=== PATIENT | female | born 1940 | race Caucasian/White ===

== ENCOUNTER 2020-08-06 07:31 | Outpatient (REF) | payer MEDICARE, SELFPAY ==
--- NOTE | ~2020-08-06 | MM_ITS ---
EXAMINATION: MM DIAGNOSTIC DIGITAL BREAST TOMOSYNTHESIS, LEFT US DIAGNOSTIC ULTRASOUND BREAST, LEFT CLINICAL INFORMATION: [place] sized palpable nodule noted by patient outer left breast, does not feel today. History contralateral right breast cancer status post lumpectomy 2017. COMPARISON: Mammography: 01/31/2020, 11/23/2018, 09/27/2017, 07/23/2016 TECHNIQUE: Digital breast tomosynthesis is performed in both the craniocaudal and mediolateral oblique views along with computer-aided detection (CAD). Synthesized 2D images are generated from the tomosynthesis. Additional exaggerated left CC view is provided. Ultrasound left breast is targeted to the outer quadrant using grayscale imaging and color Doppler without and with harmonics. Patient is able to point to general vicinity of recently palpable concern, does not focally feel today. FINDINGS: The breasts are heterogeneously dense, which may obscure small masses (ACR BI-RADS breast composition Category c). Fibronodular parenchymal pattern is similar to prior exams. There is no developing density or interval mass or architectural abnormality. No abnormal calcifications. There is a dermal lesion again seen overlying the upper breast. Targeted left breast ultrasound shows no cystic or solid mass, architectural abnormality, or focal duct ectasia. No skin thickening or edema tracking in soft tissue planes. Results are discussed with the patient at time of visit. MM/MM tomosynthesis diagnostic LT IMPRESSION: 1. No mammographic evidence of malignancy. 2. Unremarkable targeted left breast ultrasound. 3. No imaging correlate for patient's recent palpable concern. ASSESSMENT: BI-RADS 1: Negative RECOMMENDATION: 1. Patient should be managed based on the clinical impression. If clinically indicated, further evaluation may be considered with surgical consult. Decision to proceed with biopsy should be based on clinical grounds and degree of clinical concern. 2. Otherwise, routine annual screening mammography. This patient's information was entered into a reminder system with a target due date for their next mammogram.
== END 2020-08-06 07:32 | disposition home or self-care (01) ==
LOC: HO.MAMMO 07:31
PROVIDERS: Visit Provider Nurse Practitioner Family
DX: N63.23 Unspecified lump in the left breast, lower outer quadrant (principal)
CPT/HCPCS: 76642; 77061; 77065

== ENCOUNTER 2021-02-11 09:00 | Outpatient (REF) | payer MEDICARE, SELFPAY ==
--- NOTE | ~2021-02-11 | XR_ITS ---
EXAMINATION: XR HAND WRIST, LEFT CLINICAL INFORMATION: Pain COMPARISON: None TECHNIQUE: 3 views of the left hand and wrist are imaged together in large [id number] images along with a navicular view of the left breast for a total of 4 views. FINDINGS: There is a transverse fracture mid waist carpal navicular without significant angulation or displacement. There are no other visible fractures demonstrated. No dislocation. The ulnar variance is neutral. There are degenerative changes lateral carpus greatest at the first carpometacarpal joint and also involving the triscaphe joint. There are prominent osteoarthritic changes involving the PIP and DIP joints as well. XR/XR hand wrist LT IMPRESSION: Transverse fracture mid waist carpal navicular.
== END 2021-02-11 09:01 | disposition home or self-care (01) ==
LOC: HO.HMGCX 09:00
PROVIDERS: Visit Provider Internal Medicine
DX: Z13.89 Encounter for screening for other disorder (principal)
CPT/HCPCS: 73110; 73130

== ENCOUNTER 2021-09-15 10:41 | Outpatient (REF) | payer MEDICARE, SELFPAY ==
--- NOTE | ~2021-09-15 | MM_ITS ---
EXAMINATION: MM SCREENING DIGITAL BREAST TOMOSYNTHESIS, BILATERAL CLINICAL INFORMATION: Right lumpectomy for breast cancer, 2017. Due for yearly. COMPARISON: Mammography: 08/06/2020, 01/31/2020, 11/23/2018, 09/27/2017 TECHNIQUE: Digital breast tomosynthesis is performed in both the craniocaudal and mediolateral oblique views along with computer-aided detection (CAD). Synthesized 2D images are generated from the tomosynthesis. Additional right MLO view is provided. FINDINGS: The breasts are heterogeneously dense, which may obscure small masses (ACR BI-RADS breast composition Category c). There is a fibronodular parenchymal pattern similar to prior exams. Scattered bilateral vascular and round and coarse and some dystrophic calcifications are again seen. There are postsurgical changes again noted on the right with minor scarring and surgical clips and mild reduced breast size. There is no interval mass or architectural abnormality or abnormal calcifications. The axilla are unremarkable. MM/MM tomosynthesis screening BI IMPRESSION: No mammographic evidence of malignancy. ASSESSMENT: BI-RADS 2: Benign RECOMMENDATION: Routine annual mammography screening. This patient's information was entered into a reminder system with a target due date for their next mammogram.
== END 2021-09-15 10:42 | disposition home or self-care (01) ==
LOC: HO.MAMMO 10:41
PROVIDERS: PCP Registered Nurse; Visit Provider Registered Nurse
DX: Z12.31 Encounter for screening mammogram for malignant neoplasm of breast (principal)
CPT/HCPCS: 77063; 77067

== ENCOUNTER 2023-03-10 11:38 | Outpatient (REF) | payer MEDICARE, SELFPAY ==
--- NOTE | ~2023-03-10 | XR_ITS ---
EXAMINATION: XR HIP, RIGHT CLINICAL INFORMATION: Right hip pain. COMPARISON: None available. TECHNIQUE: Two views of the right hip. FINDINGS: No acute fracture or dislocation. Mild right hip joint space narrowing with small marginal osteophytes. No concerning lytic or blastic osseous lesion. No evidence of avascular necrosis. Right pelvic surgical clips. Atherosclerotic calcifications. XR/XR hip RT min 2V IMPRESSION: Mild to moderate right hip osteoarthritis.
== END 2023-03-10 11:39 | disposition home or self-care (01) ==
LOC: HO.HOSX 11:38
PROVIDERS: Visit Provider Orthopaedic Surgery
DX: M25.551 Pain in right hip (principal); Z79.899 Other long term (current) drug therapy
CPT/HCPCS: 73502; 99212

== ENCOUNTER 2023-03-10 12:05 | Outpatient (AMB) | payer MEDICARE, SELFPAY ==
--- NOTE | 2023-03-10 12:24 | A.OFFVIS_ITS ---
Intake Vital Signs 03/10/23 12:25 Height 5 ft 2 in Weight 190 lb BMI 34.7 Intake Visit Reasons: [employer]- right hip pain Intake Note: Swetha 82 yr old female presents today with her daughter Nancy for a new patient visit to re-establish care with Dr. Kendrick. States she is having hip pain that comes and goes. States pain comes and goes for the last month. No injury. The patient also reports intermittent low back pain. She has had cortisone injections given into her low back by Dr. Jordan. She denies any weakness. 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 Physical Exam Vital Signs: BMI result Body Mass Index 34.7 Const Other: Well-nourished well-developed very friendly female awake alert and oriented x3 in no acute distress Extrem Other: Bilateral lower extremity examination shows good capillary refill, no skin lesions noted, normal sensation light touch Right hip examination shows full range of motion when compared to her left hip, mild tenderness over her bursa, mild discomfort with range of motion Results Reviewed Results Reviewed: X-rays of the patient's right hip show moderate diffuse joint space narrowing, no acute bony abnormalities Assessment & Plan Assessment & Plan (1) Right hip pain: Code(s): M25.551 - Pain in right hip Plan: Ms. May presents with right hip pain due to degenerative joint disease. I had a lengthy discussion with the patient regarding the treatment options. She w ishes to hold off on surgery if at all possible. I agree with this plan. I did give the patient prescriptions for tramadol and Flexeril. She states that she took this combination while at [facility] and gave her fairly good relief. She will continue with her home exercise program. She will follow up with me on an as-needed basis should her symptoms not plateau at an acceptable level. Feel free to call me at any time should questions regarding her orthopedic management arise. I spent 22 minutes in reviewing the patient's records and imaging studies, seeing the patient and documenting in the medical record. Orders: Orders XR hip RT min 2V Today M25.551 - Pain in right hip Medications: New tramadol 50 mg PO Q12H PRN 30 tabs 0RF pain cyclobenzaprine 5 mg PO Q12H PRN 30 tabs 0RF muscle spasm Coding Level of Care Code Est Pt Level 2 (60563) Diagnoses Right hip pain M25.551
[2023-03-10 12:25] VITALS: BMI 34.7
== END 2023-03-10 13:02 | disposition home or self-care (01) ==
PROVIDERS: PCP Internal Medicine; Visit Provider Orthopaedic Surgery
DX: M25.551 Pain in right hip (principal)
CPT/HCPCS: 99212

== ENCOUNTER 2023-04-15 08:27 | Outpatient (REF) | payer MEDICARE, SELFPAY ==
--- NOTE | ~2023-04-15 | MM_ITS ---
EXAMINATION: BONE DENSITOMETRY CLINICAL INDICATION: Postmenopausal. COMPARISON: Previous BD dated 07/31/2019 and baseline BD dated 12/05/2006. TECHNIQUE: Using a Flexenclosure DXA System (software version: 13.1) manufactured by [employer], dual-energy x-ray absorptiometry was performed of the lumbar spine and left hip. The images are of good technical quality. Summary results are attached. FINDINGS: LEFT FEMUR, NECK: Current: BMD 0.810 g/cm2, Z-score 0.4, T-score -1.6, osteopenia. Prior: BMD 0.882 g/cm2. Baseline: BMD 0.954 g/cm2. LEFT FEMUR, TOTAL: Current: BMD 0.831 g/cm2, Z-score 0.4, T-score -1.4, osteopenia, 8.5% decrease from previous, 16.5% decrease from baseline (<5% change is not significant). Prior: BMD 0.908 g/cm2. Baseline: BMD 0.995 g/cm2. AP SPINE L1-L4: Current: BMD 1.293 g/cm2, Z-score 2.4, T-score 0.9, normal, 5.8% decrease from previous, 3.0% increase from baseline (<5% change is not significant). Prior: BMD 1.372 g/cm2. Baseline: BMD 1.255 g/cm2. IDENTIFIED RISK FACTORS: Menopause, hysterectomy, height loss, bilateral oophorectomy. HISTORY OF FRACTURE: None listed. MEDICATIONS: Calcium, vitamin D. MM/XR DEXA axial skeleton IMPRESSION: 1. DIAGNOSIS: Osteopenia based on the lowest T-score value of -1.6 in the femoral neck applying World Health Organization criteria. 2. 10-YEAR FRACTURE RISK PREDICTION, FRAX: Major osteoporotic fracture (clinical spine, forearm, hip or shoulder) 13.6%. Hip fracture 3.7%. 3. Treatment Recommendations: NOF guidelines recommend consideration for treatment in postmenopausal women and men age 50 and older presenting with the following: -A hip or vertebral (clinical or morphometric) fracture. -T-score less than or equal to -2.5 at the femoral neck or spine after appropriate evaluation to exclude secondary causes. -Low bone mass at the hip or spine and a 10-year fracture probability by FRAX of greater than or equal to 3% for hip fracture or greater than or equal to 20% for major osteoporotic fracture based on the [place] adapted WHO algorithm. 4. Other Recommendations: All treatment decisions require clinical judgment and consideration of individual patient factors, including patient preferences, comorbidities, previous drug use, risk factors not captured in the FRAX model (e.g. frailty, falls, vitamin D deficiency, increased bone turnover, interval significant decline in bone density) and possible under or overestimation of fracture risk by FRAX. Additional medical evaluation for secondary cause of low bone mineral density may be appropriate. FUTURE SCAN RECOMMENDATION: People with diagnosed cases of osteoporosis or at high risk for fracture should have regular bone mineral density tests. For patients eligible for Medicare, routine testing is allowed once every 2 years. The testing frequency can be increased to one year for patients who have rapidly progressing disease, those who are receiving or discontinuing medical therapy to restore bone mass, or have additional risk factors.
--- NOTE | ~2023-04-15 | MM_ITS ---
EXAMINATION: MM SCREENING DIGITAL BREAST TOMOSYNTHESIS, BILATERAL CLINICAL INFORMATION: Screening. Asymptomatic. Patient has a history of right breast cancer surgery. COMPARISON: Mammography: This study is compared with prior exams dating back to 2019. TECHNIQUE: Digital breast tomosynthesis is performed in both the craniocaudal and mediolateral oblique views along with computer-aided detection (CAD). Synthesized 2D images are generated from the tomosynthesis. FINDINGS: There are scattered areas of fibroglandular density (ACR BI-RADS breast composition Category b). There are no significant masses, abnormal calcifications, or other abnormalities. There are postsurgical changes in the superior aspect of the right breast. There are scattered, bilateral, benign calcifications in each breast. MM/MM tomosynthesis screening BI IMPRESSION: No mammographic evidence of malignancy. ASSESSMENT: BI-RADS BI-RADS 2 - Benign Findings RECOMMENDATION: Routine annual mammography screening. 1 year F/U This examination should not preclude the clinical evaluation of a suspicious palpable abnormality. This patient's information was entered into a reminder system with a target due date for their next mammogram.
== END 2023-04-15 08:28 | disposition home or self-care (01) ==
LOC: HO.MAMMO 08:27
PROVIDERS: PCP Internal Medicine; Visit Provider Internal Medicine
DX: Z12.31 Encounter for screening mammogram for malignant neoplasm of breast (principal); Z13.820 Encounter for screening for osteoporosis; Z78.0 Asymptomatic menopausal state
CPT/HCPCS: 77063; 77067; 77080

== ENCOUNTER → 2023-04-15 09:15 | Outpatient (BNV) | payer MEDICARE, SELFPAY | PROVIDERS: PCP Internal Medicine; Visit Provider Radiology Diagnostic Radiology | DX: Z12.31 Encounter for screening mammogram for malignant neoplasm of breast (principal) | CPT/HCPCS: 77063; 77067 ==

== ENCOUNTER 2023-04-20 09:25 | Outpatient (AMB) | payer MEDICARE, SELFPAY ==
--- NOTE | 2023-04-20 09:39 | MHC.OFFVIS ---
Intake Intake Visit Reasons: Knee pain Intake Note: This is an 82 year old female who presents for right knee pain. She describes her pain as sharp in nature. She has tried Tylenol which gives only mild relief. She is not able to take anti-inflammatory medicines because she is on Eliquis. She has had cortisone injections in the past which gave her fairly good relief. She wishes to hold off on surgery for as long as possible. Allergies No Known Allergies Allergy (Verified 04/20/23 09:42) Medication List - Last Reconciled 04/20/23 by Kaitlynn Lyman RN apixaban (Eliquis) 5 mg PO BID atenolol 50 mg PO DAILY cholecalciferol (vitamin D3) 10 mcg PO DAILY cholecalciferol (vitamin D3) 10 mcg PO DAILY cyclobenzaprine 5 mg PO Q12H PRN flecainide 100 mg PO Q12H furosemide (Lasix) 80 mg PO BID multivitamin 1 tab PO DAILY pravastatin 40 mg PO DAILY tramadol 50 mg PO Q12H PRN vitamins A,C,Z-isre-vhkjpi 4,296 mcg-226 mg-90 mg (PreserVision AREDS) 1 cap PO BID PFSH Social History (Updated 03/10/23 @ 12:27 by DEEPTHI Stanton) Patient Tobacco Use Status: Never used Tobacco Current occupational status: 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 Physical Exam Const Other: Well-nourished well-developed very friendly female awake alert and oriented x3 in no acute distress Extrem Other: Bilateral lower extremity examination shows good capillary refill, no skin lesions noted, normal sensation light touch Right knee examination shows a minimal effusion, palpable crepitus with range of motion, pain with range of motion, range of motion from -3 degrees to 115 degrees, no instability Office Procedures Joint Injection/Drain Joint Injection/Drain Primary Site: right knee Prep: site was prepped using aseptic technique Injected: 40 mg of, Kenalog and 1% plain lidocaine Procedure: The patient tolerated the procedure well Coding 31382 - Large joint Procedure code (CPT) selection complete Results Reviewed Results Reviewed: 04/20/23 09:54 Lidocaine HCl 1 % [Xylocaine 1 %] 2 ml .ROUTE .STK-MED ONE Triamcinolone Acetonide [Kenalog-40] 40 mg .ROUTE .STK-MED ONE X-rays of the patient's right knee show joint space narrowing, subchondral sclerosis, no acute bony abnormalities Assessment & Plan Assessment & Plan (1) Arthritis of right knee: Code(s): M17.11 - Unilateral primary osteoarthritis, right knee Plan: Ms. May presents with right knee pain due to degenerative joint disease. I had a lengthy discussion with the patient regarding the treatment options. She wishes to hold off on surgery for as long as possible. I agree with this plan. The risks and benefits of a cortisone injection were discussed at length with the patient. Patient wished to proceed. She tolerated the right knee cortisone injection well. She will continue with her activity modifications. She will follow up with me on an as-needed basis should her symptoms not plateau at an unacceptable level over the next few months. Feel free to call me at any time should questions regarding her orthopedic management arise. I spent 22 minutes in reviewing the patient's records and imaging studies, seeing the patient and documenting in the medical record. Orders: Orders AMB Joint Injection/Aspiration Today M17.11 - Unilateral primary osteoarthritis, right knee Coding Level of Care Code Est Pt Level 2 (20715) Diagnoses Arthritis of right knee M17.11 CPT Codes Coding - 96375 Large joint: 82100 - Large joint ([id number])
== END 2023-04-20 10:11 | disposition home or self-care (01) ==
PROVIDERS: PCP Internal Medicine; Visit Provider Orthopaedic Surgery
DX: M17.11 Unilateral primary osteoarthritis, right knee (principal)
CPT/HCPCS: 20610; 99214

== ENCOUNTER → 2023-04-20 09:25 | Outpatient (BNVA) | payer MEDICARE, SELFPAY | PROVIDERS: PCP Internal Medicine; Visit Provider Orthopaedic Surgery | DX: M17.11 Unilateral primary osteoarthritis, right knee (principal) | CPT/HCPCS: 20610; 99212; J3301 ==

== ENCOUNTER 2023-06-25 16:45 | Inpatient (IN) | payer MEDICARE, SELFPAY ==
--- NOTE | 2023-06-25 16:58 | ED.ARRPALP ---
HPI - Arrhythmia/Palpitations General Chief Complaint: Arrhythmia/Palpitations Stated Complaint: nausea rapid afib Time Seen by Provider: 06/25/23 16:52 Source: patient and old records reviewed Mode of arrival: EMS Limitations: no limitations History of Present Illness HPI narrative: 82 yo female with PMH of CHF, afib on eliquis, HLD has been sick with URI symptoms, nausea, diarrhea that resolved 4 days ago - but sick for a week. This AM she felt very nauseated since 930am and HR was bounding she felt terrible and called EMS - HR in 170s rapid afib gave 20mg of IV diltiazem / 500 NS and symptoms resolved with HR down in 70s. She is on atenolol 50mg daily. She has never had afib like this before but states this virus has triggered her afib. MD complaint: rapid heart beat, heart racing and palpitations Onset (ago): day(s) (2) Duration: constant Severity: moderate Context: occurred during rest Arrhythmia history: atrial fibrillation Associated symptoms: nausea and anxiety Treatments prior to arrival: calcium channel duy (20mg diltiazem) Related Data Home Medications Medication Instructions Recorded Confirmed atenolol 50 mg tablet 50 mg PO DAILY 02/11/21 06/25/23 pravastatin 40 mg tablet 40 mg PO DAILY 02/11/21 06/25/23 apixaban 5 mg tablet (Eliquis) 5 mg PO BID 04/08/22 06/25/23 cholecalciferol (vitamin D3) 10 10 mcg PO DAILY 04/20/23 06/25/23 mcg (400 unit) capsule furosemide 80 mg tablet (Lasix) 80 mg PO BID 04/20/23 06/25/23 multivitamin 1 tab PO DAILY 04/20/23 06/25/23 vitamins A,C,M-wams-gsbdts 4,296 1 cap PO BID 04/20/23 06/25/23 mcg-226 mg-90 mg capsule (PreserVision AREDS) Previous Rx's Medication Instructions Recorded cyclobenzaprine 5 mg tablet 5 mg PO Q12H PRN muscle spasm #30 03/10/23 tabs tramadol 50 mg tablet 50 mg PO Q12H PRN pain #30 tabs 03/10/23 Allergies Allergy/AdvReac Type Severity Reaction Status Date / Time No Known Allergies Allergy Verified 04/20/23 09:42 Review of Systems Review of Systems: Constitutional : No Fever, No Chills ENT/Mouth : No sore throat, pos Rhinorrhea, No Swallowing Difficulty Eyes: No Eye Pain, No Swelling, No Redness Cardiovascular : No Chest Pain, no SOB, No Orthopnea, no Edema, pos palpitations Respiratory : No Cough, No Sputum, No Wheezing, positive dyspnea Gastrointestinal : pos Nausea, No Vomiting, No Diarrhea, No abdominal Pain, No Hematochezia, No Melena Genitourinary : No Dysuria, No Urinary Frequency, No Hematuria Musculoskeletal : No joint pain, No Myalgias Skin : No Skin Lesions, No rash Neuro : No Weakness, No Numbness, No Dizziness, No Headache Psych : No Anxiety/Panic, No Depression All other systems reviewed and are negative PMFSH Past Medical History Attestation statement: The following information was validated with the patient. Onset Date is defined in the Problem List Problems that require an onset date and time if occurred within 24 hrs of arrival to the ED Aortic Dissection and Rupture; Neurologic impairment; Cardiopulmonary Arrest; Endotracheal Intubation; Insertion or Replacement of Mechanical Circulatory Assist Device Medical History Tachycardia Afib Arthritis of right knee Social History Social History Alcohol intake: never Patient Tobacco Use Status: Never used Tobacco Smoked in Last 30 Days: No Use of substances other than those prescribed or required for medical reasons: No Advance Directives: No Advance Directives Information Provided: No Current occupational status: 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 Oriented X3. No acute distress. Eyes: Pupils equal, round and reactive to light. ENT: Pharynx normal. Neck: Normal inspection. Neck supple. CVS: irregular heart rate and rhythm 110s. Pulses normal. Respiratory: No respiratory distress. Breath sounds rales both bases. Abdomen: Soft and nontender. Skin: Skin warm and dry. Normal skin color. Normal skin turgor. Extremities:1+ pitting bilateral lower extremity edema. No calf ttp Neuro: Oriented X 3. No motor deficit. No sensory deficit. Course Course Course Narrative: given BNP and hx of CHF without priors will hold dilt and start on IV lopressor / IV lasix, planned admit Reevaluation(s) Reevaluation #1: per Juanjose - hold atenolol, 25mg PO metoprolol, dig load, diurese Reevaluation #2: troponin not over delta no chest pain - night dose of eliquis ordered Medications Administered Discontinued Medications Generic Name Dose Route Start Last Admin Trade Name Freq PRN Reason Stop Dose Admin Apixaban 5 mg 06/25/23 20:09 06/25/23 20:15 Apixaban 5 Mg Tablet PO 06/25/23 20:10 5 mg ONCE ONE Administration Digoxin 0.25 mg 06/25/23 20:03 06/25/23 20:10 Digoxin 0.5 Mg/2 Ml Ampul IVPUSH 06/25/23 20:04 0.25 mg ONCE ONE Administration Furosemide 20 mg 06/25/23 18:19 06/25/23 19:10 Furosemide 20 Mg/2 Ml Vial IVPUSH 06/25/23 18:20 20 mg ONCE ONE Administration Protocol Diltiazem HCl 125 mg/ Sodium 125 mls @ 0 mls/hr 06/25/23 17:15 06/25/23 17:45 Chloride IVCONT 2.5 mg/hr .Q0M VIVIEN 2.5 mls/hr Administration Protocol Per Protocol Metoprolol Tartrate 5 mg 06/25/23 18:40 06/25/23 19:06 Metoprolol Tartrate 5 Mg/5 Ml Vial IVPUSH 06/25/23 18:41 5 mg ONCE ONE Administration Metoprolol Tartrate 5 mg 06/25/23 19:26 06/25/23 19:44 Metoprolol Tartrate 5 Mg/5 Ml Vial IVPUSH 06/25/23 19:27 5 mg ONCE ONE Administration Medical Decision Making Medical Decision Making MDM Narrative: 82 yo female with PMH of CHF, afib on eliquis, HLD here with c/o rapid afib following viral illness with good response to EMS IV diltiazem at this time will need labs, lytes, TSH, she is only on atenolol at this time - possibly switch to metoprolol. EKG, CXR. She has no CP/SOB to suggest ACS or VTE but she is older and will need rule out of ACS. Dilt drip started does not appear in acute CHF - HR still in 110s Differential Diagnosis Differential Diagnoses: The differential diagnosis associated with the presentation includes afib post viral illness possible lyte abnormality no CP/SOB to sugggest VTE CHF Admission/Observation Consideration of admission/observation: Escalation of care including admission/observation considered admit for further workup and rate control/diuresis Consult Healthcare Provider Management of the patient was discussed with: Hospitalist (will admit) and Generation Engineer (cardiology reccs given poor response to lopressor) Lab Data MDM Lab Attestation statement: I reviewed the patient's lab results. 06/25/23 17:37 06/25/23 17:37 Labs: Lab Results 06/25/23 06/25/23 06/25/23 Range/Units 17:37 19:27 19:55 WBC 7.0 (4.8-10.8) X10*3/uL RBC 3.60 L (4.20-5.50) X10*6/uL Hgb 11.3 L (12.0-16.0) g/dl Hct 33.3 L (37.0-47.0) % MCV 92.5 (80.0-98.0) fL MCH 31.4 (27.0-33.0) pg MCHC 33.9 (31.0-35.0) g/dl RDW 12.6 (11.0-16.0) % Plt Count 289 (160-400) X10*3/uL MPV 9.8 (9.4-12.3) fL Immature Gran % (Auto) 0.9 H (0.0-0.4) % Neut % (Auto) 78.2 H (45-73) % Lymph % (Auto) 14.1 L (20-40) % [place] % (Auto) 6.7 (2-11) % Eos % (Auto) 0.0 (0-4) % Baso % (Auto) 0.1 (0-2) % Lymph # (Auto) 1.0 L (1.2-4.9) X10*3/uL [place] # (Auto) 0.5 (0.1-1.2) X10*3/uL Eos # (Auto) 0.0 (0.0-0.4) X10*3/uL Baso # (Auto) 0.0 (0.0-0.2) X10*3/uL Abs Immat Gran (auto) 0.06 H (0.00-0.03) X10*3/uL Absolute Neuts (auto) 5.5 (2.0-8.3) x10*3/uL Absolute Nucleated RBC 0.000 (0.0-0.012) X10*3/uL Nucleated RBC % (auto) 0.0 (0.0-0.2) /100WBC PT 18.9 H (11.1-13.3) SEC INR 1.6 H (0.9-1.1) Sodium 144 (135-145) mmol/L Potassium 4.9 (3.3-5.1) mmol/L Chloride 103 (96-108) mmol/L Carbon Dioxide 31 H (22-29) mmol/L Anion Gap 15 (12-20) BUN 21 H (9-16) mg/dL Creatinine 0.91 (0.5-1.4) mg/dL Estim Creat Clear Calc 48.5 Estimated GFR 59 Random Glucose 138 H (60-115) mg/dL Calcium 9.0 (8.4-10.2) mg/dL Magnesium 1.7 (1.6-2.6) mg/dL Total Bilirubin 0.6 (0.0-1.0) mg/dL Direct Bilirubin 0.2 (0.0-0.5) mg/dL AST 16 (5-31) U/L ALT 12 (0-31) U/L Alkaline Phosphatase 78 (39-117) U/L Troponin I High Sens 122.5 H* 140.2 H* (<3.5-17.0) ng/L B-Natriuretic Peptide 1455 H (<100) pg/mL Total Protein 5.7 L (6.5-8.0) g/dL Albumin 3.5 (3.5-5.0) g/dL TSH 0.84 (0.32-4.0) uIU/mL Urine Color Yellow Urine Appearance Clear Urine pH 7.5 (5.0-9.0) Ur Specific [place] 1.010 (1.005-1.025) Urine Protein Negative (Neg-Trace) mg/dL Urine Glucose (UA) Negative (Negative) mg/dL Urine Ketones Negative (Negative) mg/dL Urine Blood Negative (Negative) Urine Nitrite Negative (Negative) Ur Leukocyte Esterase Trace H (Negative) Urine RBC 0-2 (0-2) /HPF Urine WBC 6-10 H (0-5) /HPF Ur Squamous Epith Cells 0-2 (0-2) /HPF Urine Bacteria None Seen (None Seen) Hyaline Casts 0-2 (0-2) /LPF Influenza Type A (PCR) NEGATIVE (Negative) Influenza Type B (PCR) NEGATIVE (Negative) RSV RNA Qual (PCR) NEGATIVE (Negative) SARS-CoV-2 RNA (RT-PCR) POSITIVE A (Negative) Independent Interpretation I performed an independent interpretation of an: EKG and Plain X-Ray (cardiomegaly) Interpretation: Rate: 96 Rhythm: afib Leonardo: left Normal QRS complex. ST T wave : no DONNA, inverted t waves V4-V6 qTC: 469 prior studies: no prior The study has been interpreted contemporaneously by me. . Radiology Impression Discussion of test interpretation with radiology: I have reviewed the radiologist's reading. Independent Historian Clinical information obtained from an independent historian. History obtained from or confirmed by: EMS and Other (family) External Record Review External record reviewed: Office record Critical Care Time Critical Care Time Critical Care Time: Yes Total Critical Care Time: 60 Attestation: repeat IV medications for heart control - lopressor, digoxin, medical consult, admission I attest to this time spent taking care of the patient Discharge Plan Discharge Clinical Impression: Atrial fibrillation with rapid ventricular response, Elevated troponin, COVID-19 CHF (congestive heart failure) Qualifiers: Heart failure type: unspecified Heart failure chronicity: acute on chronic Qualified Code(s): I50.9 - Heart failure, unspecified Patient Disposition: Admitted As Inpatient
[2023-06-25 17:05] VITALS: BP 115/60; BP 127/90; PULSE 100; PULSE 90; RESP 15; TEMP 36.6; O2SAT 97; BMI 34.7
--- NOTE | 2023-06-25 17:56 | PC.NURSE ---
Patient started on 2.5mg of diltiazem per MD verbal order. Patient generally well appearing at this time, alert and oriented, calm and cooperative with staff.
[2023-06-25 18:15] LABS: Alanine Aminotransferase 12 U/L (0-31); Albumin Level 3.5 g/dL (3.5-5.0); Alkaline Phosphatase 78 U/L (39-117); Anion Gap 15 (12-20); Aspartate Amino Transferase 16 U/L (5-31); Bilirubin Direct 0.2 mg/dL (0.0-0.5); Bilirubin Total 0.6 mg/dL (0.0-1.0); Blood Urea Nitrogen 21 mg/dL (9-16); Carbon Dioxide 31 mmol/L (22-29); Chloride 103 mmol/L (96-108); Creatinine Clr Calc Pharmacy 48.5; Estimated Glomerular Filt Rate 59; Glucose Random 138 mg/dL (60-115); Magnesium 1.7 mg/dL (1.6-2.6); Potassium 4.9 mmol/L (3.3-5.1); Sodium 144 mmol/L (135-145); Total Protein 5.7 g/dL (6.5-8.0)
[2023-06-25 18:29] LABS: TSH reflex Free T4 0.84 uIU/mL (0.32-4.0)
[2023-06-25 19:10] VITALS: BP 115/59; PULSE 127; RESP 22; O2SAT 98
[2023-06-25 20:00] VITALS: BP 106/52; PULSE 120; RESP 14; O2SAT 98
--- NOTE | 2023-06-25 20:29 | PM.IMHP ---
History of Present Illness Date of Service: 06/25/23 Chief Complaint: Palpitations This is a 82-year-old female with pertinent history of congestive heart failure, unspecified EF, atrial fibrillation on Eliquis, mixed hyperlipidemia who presents to the emergency department for evaluation of palpitations. Patient states she has been feeling weak for the last 10-14 days. She had runny nose, watering of eyes and felt like she had over the last 5-7 days, patient states he has been having palpitations. Also has associated nausea. No fever, chills, cough, chest discomfort, overt dyspnea, abdominal pain, changes in urinary or bowel habits. In the emergency department, patient was found to be in AFib with RVR. Cardiology was consulted who requested admission. Imaging with mild cardiomegaly and BNP found to be elevated. Review of Systems Constitutional: Constitutional: Reports fatigue, Reports lethargy and Reports malaise Cardiovascular: Cardiovascular: Reports rapid heart rate, Reports leg edema and Reports dyspnea Respiratory: Respiratory: Reports dyspnea Gastrointestinal: Gastrointestinal: Reports no additional gastrointestinal complaints Genitourinary: Genitourinary: Reports no additional female genitourinary complaints Endocrine: Endocrine: Reports fatigue [facility] Medical History CHF (congestive heart failure) Atrial fibrillation with rapid ventricular response Tachycardia Afib Arthritis of right knee Pertinent family history: No family history of early CAD Social History Alcohol intake: never Patient Tobacco Use Status: Never used Tobacco Smoked in Last 30 Days: No Use of substances other than those prescribed or required for medical reasons: No Advance Directives: No Advance Directives Information Provided: No Current occupational status: retired 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 [employer] Meds Allergies Allergy/AdvReac Type Severity Reaction Status Date / Time No Known Allergies Allergy Verified 04/20/23 09:42 Active Medications: Current Medications Metoprolol Tartrate (Metoprolol Tartrate 25 Mg Tablet) 25 mg PO BID [facility]; Protocol Home Medications Medication Instructions Recorded Confirmed Last Taken Type atenolol 50 mg tablet 50 mg PO DAILY 02/11/21 06/25/23 06/25/23 10:00 History pravastatin 40 mg tablet 40 mg PO DAILY 02/11/21 06/25/23 06/25/23 10:00 History apixaban 5 mg tablet (Eliquis) 5 mg PO BID 04/08/22 06/25/23 06/25/23 10:00 History cholecalciferol (vitamin D3) 10 10 mcg PO DAILY 04/20/23 06/25/23 06/25/23 10:00 History mcg (400 unit) capsule furosemide 80 mg tablet (Lasix) 80 mg PO BID 04/20/23 06/25/23 06/25/23 10:00 History multivitamin 1 tab PO DAILY 04/20/23 06/25/23 06/25/23 10:00 History vitamins A,C,K-yksj-nlmjjx 4,296 1 cap PO BID 04/20/23 06/25/23 06/25/23 10:00 History mcg-226 mg-90 mg capsule (PreserVision AREDS) Physical Exam Vital Signs and Narrative: Vital Signs: Last Vital Signs Temp 97.9 F 06/25/23 17:05 Pulse 120 H 06/25/23 20:00 Resp 14 06/25/23 20:00 BP 106/52 L 06/25/23 20:00 Pulse Ox 98 06/25/23 20:00 O2 Del Method Room Air 06/25/23 20:00 BMI result Body Mass Index 34.7 Middle-aged female lying in bed in no distress Neck supple, no JVD Irregularly irregular, S1-S2 heard Bilateral crackles at bases Abdomen soft nontender, no guarding, no rigidity Patient is awake, alert and oriented to self, place, time and person ; no focal motor deficit Psych: Normal mood Pedal edema +1 Results Labs 06/25/23 17:37 06/25/23 17:37 Labs: Laboratory Results - last 24 hr 06/25/23 06/25/23 17:37 19:55 MCV 92.5 MCH 31.4 MCHC 33.9 RDW 12.6 Plt Count 289 MPV 9.8 Immature Gran % (Auto) 0.9 H Neut % (Auto) 78.2 H Lymph % (Auto) 14.1 L [place] % (Auto) 6.7 Eos % (Auto) 0.0 Baso % (Auto) 0.1 Lymph # (Auto) 1.0 L [place] # (Auto) 0.5 Eos # (Auto) 0.0 Baso # (Auto) 0.0 Abs Immat Gran (auto) 0.06 H Absolute Neuts (auto) 5.5 Absolute Nucleated RBC 0.000 Nucleated RBC % (auto) 0.0 PT 18.9 H INR 1.6 H Anion Gap 15 Estim Creat Clear Calc 48.5 Estimated GFR 59 Random Glucose 138 H Calcium 9.0 Magnesium 1.7 Total Bilirubin 0.6 Direct Bilirubin 0.2 AST 16 ALT 12 Alkaline Phosphatase 78 B-Natriuretic Peptide 1455 H Total Protein 5.7 L Albumin 3.5 TSH 0.84 Urine Color Yellow Urine Appearance Clear Urine pH 7.5 Ur Specific [place] 1.010 Urine Protein Negative Urine Glucose (UA) Negative Urine Ketones Negative Urine Blood Negative Urine Nitrite Negative Ur Leukocyte Esterase Trace H Urine RBC 0-2 Urine WBC 6-10 H Ur Squamous Epith Cells 0-2 Urine Bacteria None Seen Hyaline Casts 0-2 Influenza Type A (PCR) NEGATIVE Influenza Type B (PCR) NEGATIVE RSV RNA Qual (PCR) NEGATIVE SARS-CoV-2 RNA (RT-PCR) POSITIVE A Imaging Radiologist's Impressions: Impressions Chest X-Ray 06/25/23 17:53 IMPRESSION: Mild cardiomegaly. No acute intrathoracic disease. Assessment and Plan (1) Atrial fibrillation with rapid ventricular response: Status: Acute (2) CHF (congestive heart failure): Qualifiers: Heart failure chronicity: acute on chronic Heart failure type: unspecified Qualified Code(s): I50.9 - Heart failure, unspecified Status: Acute Plan This is a 82-year-old female with pertinent history of congestive heart failure, unspecified EF, atrial fibrillation on Eliquis, mixed hyperlipidemia who presents to the emergency department for evaluation of palpitations. #. AFib with RVR in the setting of COVID-19 infection: Will admit patient with cardiac monitoring. Initially patient was placed on diltiazem drip. Cardiology was consulted who requested IV digoxin and initiating metoprolol 25 mg b.i.d.. Appreciate Cardiology assistance. Obtaining echocardiogram. TSH pending. Patient is not hypoxemic, defer Decadron. Continue Eliquis #. Acute mild decompensation of congestive heart failure, unspecified EF: Initiating IV diuresis. On beta-duy. Echo as above. Strict I's and O's. Low-salt diet. #. Mixed hyperlipidemia: On statin #. Elevated troponin, likely type 2 in the setting of increased demand. Trend DVT Prophylaxis: Eliisabelaaudie Full code Admit as inpatient and will require two night minimum hospital stay for close monitoring of heart rate, volume status (as above), which is not possible in a lesser acute setting. Specialist consult pending Quality Stroke Does the patient have a stroke diagnosis?: No VTE Prior VTE?: No VTE Risk Level:: Medical - moderate - high VTE Device Contraindication: Treatment Not Indicated VTE Drug Contraindication: N/A - Med Ordered
--- NOTE | 2023-06-25 21:38 | PC.NURSE ---
Pt has been able to stand and pivot with one assist to commode.
[2023-06-26 02:04] VITALS: BP 144/69; PULSE 102; RESP 15; TEMP 36.6; O2SAT 100
[2023-06-26 06:26] VITALS: BP 115/63; PULSE 107; RESP 16; TEMP 36.8; O2SAT 98
[2023-06-26 06:47] LABS: Anion Gap 14 (12-20); Blood Urea Nitrogen 20 mg/dL (9-16); Calcium 9.1 mg/dL (8.4-10.2); Carbon Dioxide 31 mmol/L (22-29); Chloride 102 mmol/L (96-108); Creatinine Clr Calc Pharmacy 50.2; Estimated Glomerular Filt Rate > 60; Glucose Random 102 mg/dL (60-115); Potassium 3.9 mmol/L (3.3-5.1); Sodium 143 mmol/L (135-145)
[2023-06-26 07:24] VITALS: BP 110/58; PULSE 90; RESP 12; TEMP 36.7; O2SAT 99
--- NOTE | 2023-06-26 07:33 | PC.NURSE ---
this RN resumed care of pt at this time. a&ox4, vss and up to date. afib on the vehicle monitor technician - 90s-100s bpm. pt denies chest pain/palpitations/SCHAEFER or any other sx. no sob/wob noted. pt able to speak in full/clear sentences w/o difficulty. fine crackles noted throughout. 3+ nonpitting edema noted to lower extremities bilaterally. pt concerned about home medications and taking scheduled pravastatin in the morning - pt states she usually takes the medication at night - will call pharmacy in regards to seeing if timing can be changed to make pt more comfortable. pt also concerned why entresto was not put in med rec - will notify pharmacy of this as well and provide information to pt when able. pt resting comfortably in no apparent distress. respirations even and unlabored. call moore placed within reach.
--- NOTE | 2023-06-26 07:45 | PC.NURSE ---
this RN spoke w/ pharmacy in regard to medication - pharmacy states they will come down to ED to complete full medication reconciliation. will notify pt at this time.
--- NOTE | 2023-06-26 08:03 | HO.PM.IMPN ---
Subjective Subjective Date of Service: 06/26/23 Interval History: f/u on AF with RVR, NSTEMI, CHF and covid Overall feels better Physical Exam Vital Signs: Vital Signs: Last Vital Signs Temp 98.0 F 06/26/23 07:24 Pulse 90 06/26/23 07:24 Resp 12 06/26/23 07:24 BP 110/58 L 06/26/23 07:24 Pulse Ox 99 06/26/23 07:24 O2 Del Method Room Air 06/26/23 07:24 BMI result Body Mass Index 34.7 General: AO X 3, no acute distress Resp: CTA bilateral CVS: S1,S2, iregular iregular GI: +BS, NT, no distention Skin: No rash Neuro: motor grossly intact Psych: appropriate affect Const: Other: General: AO X 3, no acute distress Resp: CTA bilateral CVS: S1,S2, iregular GI: +BS, NT, no distention Skin: No rash Neuro: motor grossly intact Psych: appropriate affect Objective Data Active Medications Acetaminophen (Acetaminophen 325 Mg Tablet) 650 mg PO Q6H PRN PRN Reason: Pain, Mild (Pain Scale 1-3) Apixaban (Apixaban 5 Mg Tablet) 5 mg PO BID VIVIEN Cyclobenzaprine HCl (Cyclobenzaprine Hcl 5 Mg Tablet) 5 mg PO Q12H PRN PRN Reason: muscle spasm Furosemide (Furosemide 100 Mg/10 Ml Vial) 60 mg IVPUSH BID@0900,1800 [facility]; Protocol Melatonin (Melatonin 3 Mg Tablet) 6 mg PO BEDTIME PRN PRN Reason: Insomnia Metoprolol Tartrate (Metoprolol Tartrate 25 Mg Tablet) 25 mg PO BID [facility]; Protocol Last Admin: 06/25/23 21:57 Dose: 25 mg Documented By: TRIP Multivitamins/Vitamin C (Multivitamin Tablet) 1 tab PO DAILY [facility] Ondansetron HCl (Ondansetron Hcl 4 Mg/2 Ml Vial) 4 mg IVPUSH Q8H PRN PRN Reason: Nausea and Vomiting Pravastatin Sodium (Pravastatin Sodium 40 Mg Tablet) 40 mg PO BEDTIME [facility] Sodium Chloride (0.9 % Sodium Chloride Flush 3 Ml Syringe) 3 ml IVFLUSH QSHIFT [facility] Last Admin: 06/26/23 07:37 Dose: 3 ml Documented By: JRODON Tramadol HCl (Tramadol Hcl 50 Mg Tablet) 50 mg PO Q12H PRN PRN Reason: Pain, Moderate(Pain Scale 4-6) Vitamin D (Cholecalciferol (Vitamin D3) 10 Mcg Tablet) 10 mcg PO DAILY VIVIEN Labs 06/26/23 05:47 06/26/23 05:47 Labs: Laboratory Results - last 24 hr 06/25/23 06/25/23 06/25/23 17:37 19:55 21:14 MCV 92.5 MCH 31.4 MCHC 33.9 RDW 12.6 Plt Count 289 MPV 9.8 Immature Gran % (Auto) 0.9 H Neut % (Auto) 78.2 H Lymph % (Auto) 14.1 L [place] % (Auto) 6.7 Eos % (Auto) 0.0 Baso % (Auto) 0.1 Lymph # (Auto) 1.0 L [place] # (Auto) 0.5 Eos # (Auto) 0.0 Baso # (Auto) 0.0 Abs Immat Gran (auto) 0.06 H Absolute Neuts (auto) 5.5 Absolute Nucleated RBC 0.000 Nucleated RBC % (auto) 0.0 PT 18.9 H INR 1.6 H Anion Gap 15 Estim Creat Clear Calc 48.5 Estimated GFR 59 Random Glucose 138 H Calcium 9.0 Magnesium 1.7 Total Bilirubin 0.6 Direct Bilirubin 0.2 AST 16 ALT 12 Alkaline Phosphatase 78 B-Natriuretic Peptide 1455 H Total Protein 5.7 L Albumin 3.5 TSH 0.84 0.71 Urine Color Yellow Urine Appearance Clear Urine pH 7.5 Ur Specific [place] 1.010 Urine Protein Negative Urine Glucose (UA) Negative Urine Ketones Negative Urine Blood Negative Urine Nitrite Negative Ur Leukocyte Esterase Trace H Urine RBC 0-2 Urine WBC 6-10 H Ur Squamous Epith Cells 0-2 Urine Bacteria None Seen Hyaline Casts 0-2 Influenza Type A (PCR) NEGATIVE Influenza Type B (PCR) NEGATIVE RSV RNA Qual (PCR) NEGATIVE SARS-CoV-2 RNA (RT-PCR) POSITIVE A 06/26/23 05:47 MCV 93.4 MCH 31.1 MCHC 33.3 RDW 12.7 Plt Count 294 MPV 10.0 Immature Gran % (Auto) 0.4 Neut % (Auto) 68.1 Lymph % (Auto) 22.9 [place] % (Auto) 8.3 Eos % (Auto) 0.0 Baso % (Auto) 0.3 Lymph # (Auto) 1.7 [place] # (Auto) 0.6 Eos # (Auto) 0.0 Baso # (Auto) 0.0 Abs Immat Gran (auto) 0.03 Absolute Neuts (auto) 5.2 Absolute Nucleated RBC 0.000 Nucleated RBC % (auto) 0.0 PT INR Anion Gap 14 Estim Creat Clear Calc 50.2 Estimated GFR > 60 Random Glucose 102 Calcium 9.1 Magnesium Total Bilirubin Direct Bilirubin AST ALT Alkaline Phosphatase B-Natriuretic Peptide Total Protein Albumin TSH Urine Color Urine Appearance Urine pH Ur Specific [place] Urine Protein Urine Glucose (UA) Urine Ketones Urine Blood Urine Nitrite Ur Leukocyte Esterase Urine RBC Urine WBC Ur Squamous Epith Cells Urine Bacteria Hyaline Casts Influenza Type A (PCR) Influenza Type B (PCR) RSV RNA Qual (PCR) SARS-CoV-2 RNA (RT-PCR) Assessment and Plan (1) Atrial fibrillation with rapid ventricular response: Status: Acute (2) CHF (congestive heart failure): Status: Acute (3) COVID-19: Status: Acute (4) Elevated troponin: Status: Acute Plan 82/F with unspecified CHF, AF on eliquis, HLD presented with palpitation and found to have covid, AF with RVR and NSTEMI and acute CHF Permanent AFib with RVR likely from covid, given iv metoprolol and iv dig in ed, rate is better -continue metoprolol 25 bid (atenolol at home) -eliquis for stroke prevention -no change per cardio Acute on chronic HFrEF, exacerbated by AF w/ RVR -continue iV Lasix to PO lasix per card recommendation -continue Entresto -echo -track i/o, low salt diet. Type 2 NSTEMI--likely from AF w/ RVR, continue BB, statin and eliquis so no ASA. Trend troponin I Covid-19, assymptomatic,, no indication for steroid or antiviral meds, covid isolation HLD--statin DVT Prophylaxis: Eliquis Full code need for inpt: mnaagement of acute heart fialure, AF w/ RVE and acute HF being ttreated with IV diuretics Quality Stroke Does the patient have a stroke diagnosis?: No VTE Prior VTE?: No VTE Risk Level:: Medical - moderate - high VTE Device Contraindication: Treatment Not Indicated VTE Drug Contraindication: N/A - Med Ordered
--- NOTE | 2023-06-26 08:13 | PHA.MEDREC ---
Pharmacy Consult ? Medication Reconciliation Pharmacy has completed the medication reconciliation. spoke with patient to confirm medications.
--- NOTE | 2023-06-26 08:15 | PC.NURSE ---
pt medicated per provider order. pt eating breakfast at this time.
--- NOTE | 2023-06-26 09:41 | PC.NURSE ---
admitting provider bedside assessing pt at this time. medication administered per provider order. per admitting provider order - 0900 lasix held/discontinued d/t previous lasix administration this morning.
--- NOTE | 2023-06-26 10:47 | PC.NURSE ---
this RN attempted to call pt's daughter (williams) for a status update on pt but was unsuccessful. voicemail left for pt's family member at this time.
--- NOTE | 2023-06-26 10:51 | PC.NURSE ---
this RN received phone call back from pt's primary contact - williams. status update given at this time.
[2023-06-26 11:11] VITALS: BP 102/74; PULSE 100; RESP 14; TEMP 36.7; O2SAT 100
--- NOTE | 2023-06-26 11:51 | PC.NURSE ---
pt c/o nausea - prn zofran administered per provider order. otherwise pt resting in no apparent distress. no sob/wob noted. respirations remain even and unlabored. call moore placed within reach.
--- NOTE | 2023-06-26 11:59 | PM.CNCAR ---
History of Present Illness History of Present Illness Date of Service: 06/26/23 Requesting physician: Evaristo Leon Chief complaint: Atrial fibrillation Narrative: [age] year female with COVID-19 infection ongoing for 2 weeks with GI complaints including nausea now along with some cramping who presented for nausea and was noticed to be in atrial fibrillation with rapid ventricular response. Chest x-ray also raise some concern for mild congestive heart failure. She was denying any shortness of breath. She is still denying any symptoms other than mild nausea. Heart rates are well controlled in atrial fibrillation. She is on atenolol 50 mg at home along with Entresto and apixaban. 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 Meds Allergies Allergy/AdvReac Type Severity Reaction Status Date / Time No Known Allergies Allergy Verified 04/20/23 09:42 Active Medications: Current Medications Acetaminophen (Acetaminophen 325 Mg Tablet) 650 mg PO Q6H PRN PRN Reason: Pain, Mild (Pain Scale 1-3) Apixaban (Apixaban 5 Mg Tablet) 5 mg PO BID [facility] Last Admin: 06/26/23 08:12 Dose: 5 mg Furosemide (Furosemide 100 Mg/10 Ml Vial) 40 mg IVPUSH BID@0900,1800 [facility]; Protocol Last Admin: 06/26/23 09:43 Dose: Not Given Melatonin (Melatonin 3 Mg Tablet) 6 mg PO BEDTIME PRN PRN Reason: Insomnia Metoprolol Tartrate (Metoprolol Tartrate 25 Mg Tablet) 25 mg PO BID [facility]; Protocol Last Admin: 06/26/23 08:12 Dose: 25 mg Multivitamins/Vitamin C (Multivitamin Tablet) 1 tab PO DAILY [facility] Last Admin: 06/26/23 08:12 Dose: 1 tab Ondansetron HCl (Ondansetron Hcl 4 Mg/2 Ml Vial) 4 mg IVPUSH Q8H PRN PRN Reason: Nausea and Vomiting Last Admin: 06/26/23 11:49 Dose: 4 mg Pravastatin Sodium (Pravastatin Sodium 40 Mg Tablet) 40 mg PO BEDTIME [facility] Sacubitril/Valsartan (Sacubitril/Valsartan 49/51 1 Tab Tablet) 1 tab PO BID [facility]; Protocol Last Admin: 06/26/23 09:43 Dose: 1 tab Sodium Chloride (0.9 % Sodium Chloride Flush 3 Ml Syringe) 3 ml IVFLUSH QSHIFT [facility] Last Admin: 06/26/23 07:37 Dose: 3 ml Vitamin D (Cholecalciferol (Vitamin D3) 10 Mcg Tablet) 10 mcg PO DAILY [facility] Last Admin: 06/26/23 08:12 Dose: 10 mcg Home Medications Medication Instructions Recorded Confirmed Last Taken Type atenolol 50 mg tablet 50 mg PO DAILY 02/11/21 06/25/23 06/25/23 10:00 History pravastatin 40 mg tablet 40 mg PO BEDTIME 02/11/21 06/26/23 06/25/23 10:00 History apixaban 5 mg tablet (Eliquis) 5 mg PO BID 04/08/22 06/25/23 06/25/23 10:00 History furosemide 20 mg tablet 40 mg PO BID 06/26/23 06/26/23 Unknown History sacubitril 49 mg-valsartan 51 mg 1 tab PO BID 06/26/23 06/26/23 Unknown History tablet (Entresto) Physical Exam Vital Signs: Vital Signs: Last Vital Signs Temp 98.1 F 06/26/23 11:11 Pulse 100 06/26/23 11:11 Resp 14 06/26/23 11:11 BP 102/74 06/26/23 11:11 Pulse Ox 100 06/26/23 11:11 O2 Del Method Room Air 06/26/23 11:11 BMI result Body Mass Index 34.7 GENERAL APPEARANCE: in no acute distress, pleasant. NECK: no carotid bruit, no jugular venous distention. SKIN: no suspicious lesions, warm and dry. HEART: no murmurs, irregular rate and rhythm. LUNGS: clear to auscultation bilaterally. ABDOMEN: soft, nontender. EXTREMITIES: no edema. PERIPHERAL PULSES: equal. NEUROLOGIC: No gross deficits, AAO X 3 Objective Labs and Meds 06/26/23 05:47 06/26/23 05:47 Lab results: Laboratory Results - last 24 hr 06/25/23 06/25/23 06/25/23 17:37 19:27 19:55 WBC 7.0 RBC 3.60 L Hgb 11.3 L Hct 33.3 L MCV 92.5 MCH 31.4 MCHC 33.9 RDW 12.6 Plt Count 289 MPV 9.8 Immature Gran % (Auto) 0.9 H Neut % (Auto) 78.2 H Lymph % (Auto) 14.1 L Dickson % (Auto) 6.7 Eos % (Auto) 0.0 Baso % (Auto) 0.1 Lymph # (Auto) 1.0 L Dickson # (Auto) 0.5 Eos # (Auto) 0.0 Baso # (Auto) 0.0 Abs Immat Gran (auto) 0.06 H Absolute Neuts (auto) 5.5 Absolute Nucleated RBC 0.000 Nucleated RBC % (auto) 0.0 PT 18.9 H INR 1.6 H Sodium 144 Potassium 4.9 Chloride 103 Carbon Dioxide 31 H Anion Gap 15 BUN 21 H Creatinine 0.91 Estim Creat Clear Calc 48.5 Estimated GFR 59 Random Glucose 138 H Calcium 9.0 Magnesium 1.7 Total Bilirubin 0.6 Direct Bilirubin 0.2 AST 16 ALT 12 Alkaline Phosphatase 78 Troponin I High Sens 122.5 H* 140.2 H* B-Natriuretic Peptide 1455 H Total Protein 5.7 L Albumin 3.5 TSH 0.84 Urine Color Yellow Urine Appearance Clear Urine pH 7.5 Ur Specific [place] 1.010 Urine Protein Negative Urine Glucose (UA) Negative Urine Ketones Negative Urine Blood Negative Urine Nitrite Negative Ur Leukocyte Esterase Trace H Urine RBC 0-2 Urine WBC 6-10 H Ur Squamous Epith Cells 0-2 Urine Bacteria None Seen Hyaline Casts 0-2 Influenza Type A (PCR) NEGATIVE Influenza Type B (PCR) NEGATIVE RSV RNA Qual (PCR) NEGATIVE SARS-CoV-2 RNA (RT-PCR) POSITIVE A 06/25/23 06/26/23 21:14 05:47 WBC 7.6 RBC 3.76 L Hgb 11.7 L Hct 35.1 L MCV 93.4 MCH 31.1 MCHC 33.3 RDW 12.7 Plt Count 294 MPV 10.0 Immature Gran % (Auto) 0.4 Neut % (Auto) 68.1 Lymph % (Auto) 22.9 Dickson % (Auto) 8.3 Eos % (Auto) 0.0 Baso % (Auto) 0.3 Lymph # (Auto) 1.7 Dickson # (Auto) 0.6 Eos # (Auto) 0.0 Baso # (Auto) 0.0 Abs Immat Gran (auto) 0.03 Absolute Neuts (auto) 5.2 Absolute Nucleated RBC 0.000 Nucleated RBC % (auto) 0.0 PT INR Sodium 143 Potassium 3.9 D Chloride 102 Carbon Dioxide 31 H Anion Gap 14 BUN 20 H Creatinine 0.88 Estim Creat Clear Calc 50.2 Estimated GFR > 60 Random Glucose 102 Calcium 9.1 Magnesium Total Bilirubin Direct Bilirubin AST ALT Alkaline Phosphatase Troponin I High Sens 142.1 H* B-Natriuretic Peptide Total Protein Albumin TSH 0.71 Urine Color Urine Appearance Urine pH Ur Specific [place] Urine Protein Urine Glucose (UA) Urine Ketones Urine Blood Urine Nitrite Ur Leukocyte Esterase Urine RBC Urine WBC Ur Squamous Epith Cells Urine Bacteria Hyaline Casts Influenza Type A (PCR) Influenza Type B (PCR) RSV RNA Qual (PCR) SARS-CoV-2 RNA (RT-PCR) Imaging Radiologist's impression: Impressions Chest X-Ray 06/25/23 17:53 IMPRESSION: Mild cardiomegaly. No acute intrathoracic disease. Assessment and Plan (1) Atrial fibrillation with rapid ventricular response: Status: Acute (2) COVID-19: Status: Acute Plan [age] year female presenting for nausea and AFib with RVR in the setting of COVID-19. She has elevated BNP level. Chest x-ray has shown mild cardiomegaly. Check echocardiogram. Continue metoprolol 25 mg twice a day. She was loaded with digoxin and we can hold off on further digoxin currently. She is on Eliquis for anticoagulation. Does not appear to be significantly volume overloaded although BNP levels were quite high. I would favor just changing her to 40 mg p.o. Lasix daily. Based on echocardiography we can adjust her medications further. Thank you for allowing me to participate in the care of your patient. Please feel free to contact me if you have any questions. Procedures Date of Service Date of Service: 06/26/23
--- NOTE | 2023-06-26 12:24 | MHC.CM.PN ---
IMM 06/26. Pt self-care, lives at home alone, uses a cane. Pts daughter or son to transport her home at D/C. Pts daughter is HCP, copy requested. PCP: Dr. Seth Khan at [facility]
[2023-06-26 13:48] VITALS: BP 113/63; PULSE 118; RESP 16; TEMP 36.8; O2SAT 96
--- NOTE | 2023-06-26 13:50 | PC.NURSE ---
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 pt verbalizing nausea subsided at this time. denies any pain. pt resting comfortably w/ family bedside at this time. pt seems to be in no apparent distress. respirations remain even and unlabored. call moore placed within reach.
--- NOTE | 2023-06-26 16:17 | PC.NURSE ---
pt continues to rest in no apparent distress. afib on the cardiac cath technician - between 100s-120s bpm. pt still denies palpitations/chest pain at this time. pt has no complaints. denies pain. no son/won noted. resting comfortably w/ the lights dimmed. pt still awaits bed placement at this time. call moore placed within reach.
[2023-06-26 18:29] VITALS: BP 125/77; PULSE 87; RESP 16; TEMP 36.6; O2SAT 98
--- NOTE | 2023-06-26 18:32 | PC.NURSE ---
vss and up to date. pt remains w/ afib on the monitor - HR between 100s-110s bpm. still denies c/p/palpations/any other sx. medication administered per provider order. pt awaiting bed placement at this time. call moore placed within reach.
--- NOTE | 2023-06-26 21:27 | PC.NURSE ---
RN outreached to nursing measurement supervisor to retrieve Entresto from floor for patient's 2100 medication admin
[2023-06-27] VITALS (8 sets, daily range): BP systolic 97–123; BP diastolic 56–68; PULSE 91–163; RESP 12–20; TEMP 36.1–37.2; O2SAT 96–99
--- NOTE | 2023-06-27 07:00 | CA_ITS ---
Transthoracic Echocardiogram Patient (Last, First, Middle): Swetha May J Gender: Female Date of : 1940 Age: 82 Procedure Date: 06/27/2023 Procedure Type: Transthoracic Echocardiogram Location: ER Height: 157.48 cm Weight: 85.73 kg BSA: 1.87 m2 Heart Rate: bpm BP: 123 / 62 mmHg Graphite Grinder: Referring MD: Aylin Jo MD Mixed Crop [employer] Livestock Farmer: Cosmo Gayle MD Symptoms: afib with rvr ; chf Study Quality: Fair ECG Rhythm: Atrial Fibrillation Conclusions: - 1. Mildly reduced LVEF of 45-50% 2. Severely dilated left atrium 3. Severe mitral calcification with mild mitral regurgitation 4. Normal RV systolic pressure 5. No gross pericardial effusion Findings Left Ventricle Normal left ventricular cavity size. There is normal left ventricular wall thickness. The left ventricular systolic function is mildly decreased. The visually estimated ejection fraction is between 45-50%. Diastolic function is indeterminate on the basis of available data. Right Ventricle Mildly increased right ventricular cavity size. There is normal right ventricular systolic function. Atria The left atrium is severely dilated. Interatrial shunt cannot be excluded. The right atrium is moderately dilated. Aortic Valve There is mild calcification of the aortic valve. There is no aortic valve stenosis. There is no aortic valve regurgitation. Mitral Valve There is mild anterior and severe posterior mitral leaflet thickening. There is severe mitral annular calcification. There is mild mitral valve regurgitation. There is no mitral valve stenosis. Pulmonic Valve The pulmonic valve was not well visualized. Tricuspid Valve Likely normal tricuspid valve structure and function. There is mild tricuspid valve regurgitation. The right ventricular systolic pressure is normal. The right ventricular systolic pressure is 24 mmHg. Normal right atrial pressure. There is no evidence of pulmonary hypertension. Great Vessels All visible segments of the aorta are normal in size. The pulmonary artery was not well visualized. There is no dilatation of the ascending aorta measuring 2.40 cm. Venous The inferior vena cava is normal in size and collapses greater than 50% with inspiration. Pericardium/Pleural There is no evidence of pericardial effusion. Prior Study Comparison No prior study available for comparison. Measurements 2D Linear Measurements IVSd: 1.06 0.6-0.9/0.6-1.0 cm LVIDd: 4.57 3.9-5.3/4.2-5.9 cm LVIDd Index: 2.44 2.4-3.2/2.2-3.1 cm/m2 LVIDs: 3.41 2.0-3.6 cm LVPWd: 1.09 0.7-1.1 cm Ao Root: 2.80 2.1-3.5 cm LA Diam: 4.00 2.7-3.8/3.0-4.0 cm LAIDs Index: 2.14 1.5-2.3 cm/m2 LV Mass: 216.34 67-162/88-224 g LV Mass Index: 115.69 43-95/49-115 g/m2 LVOT Diam: 1.90 3.0+(-)1.3 cm 2D Systolic Function EF 4C: 49.00 >55% EF 2C: 48.20 >55% EF BiP: 49.60 >55% Mitral Valve MV VTI: 0.22 MV Pk Rafael: 1.05 MV Mn Rafael: 0.72 MV Pk Grad: 4.00 MV Mn Grad: 2.00 MV Pk E: 0.97 MV Decel Time: 165.00 E'Lateral: 12.00 E'Medial: 7.18 E/E' Med: 13.60 E/E' Lat: 8.10 PHT: 48.00 MVA PHT: 4.58 MVA Continuity: 2.25 Decel Blair: 5.90 Aortic Valve AoV Pk Rafael: 1.62 AoV Mn Rafael: 1.00 AoV VTI: 0.33 AoV Pk Grad: 10.00 Aov Mn Grad: 5.00 MARILEE Cont.VTI: 1.49 LVOT LVOT Pk Rafael: 1.04 LVOT Mn Rafael: 0.59 LVOT VTI: 0.17 LVOT Pk Grad: 4.00 LVOT Mn Grad: 2.00 LVOT Diam: 1.90 LVOT Area: 2.84 Diastolic Function MV Pk E: 0.97 E'Medial: 7.18 E/E' Med: 13.60 E' Laterial: 12.00 E/E' Lat: 8.10 Right Ventricle TAPSE (mm): 20.00 TVS' Rafael: 13.00 Tricuspid Valve TR Pk Rafael: 2.27 TR Pk Grad: 21.00 RA Press: 3.00 RVSP: 24.00 Great Vessels Aorta Ao Root-2D: 2.80 2.0-3.7 cm Ao Asc: 2.40 2.1-3.4 cm Pulmonary Valve PV Pk Rafael: 1.10 Peak PV Grad: 5.00 Updated in Other Vendor System with Status of Final Cosmo Gayle MD electronically signed on 06/27/2023 4:15:15 PM with status of Final
--- NOTE | 2023-06-27 09:38 | PC.NURSE ---
patient a&ox3, chronic disease epidemiologist intact- pt afib on monitor hr in 140s, hospitalist aware, pt lungs diminished throughout, 2+ BLE edema which pt states is better than previous, covid precautions intact, call moore within reach, will continue to monitor
--- NOTE | 2023-06-27 09:40 | PC.NURSE ---
called pharmacy for missing meds
--- NOTE | 2023-06-27 10:39 | PC.NURSE ---
pharmacy brought missing meds, pt medicated per orders, will continue to monitor
--- NOTE | 2023-06-27 12:30 | PM.PNCARD ---
Subjective Subjective Date of Service: 06/27/23 Principal diagnosis: Atrial fibrillation with rapid ventricular response, cardiomyopathy, elevat Interval history: Patient denies any chest pain. Also denies any significant shortness of breath. Atrial fibrillation rate remains difficult control. Patient has received metoprolol yesterday. Patient says that she has history of paroxysmal atrial fibrillation only. This was confirmed after reviewing the notes. She used to be on flecainide therapy before but this was discontinued due to LV systolic dysfunction. She has significant left atrial enlargement by echocardiogram from before. She denies any palpitations at this point in time. Denies any chest pain. Review of Systems Constitutional: Reports no additional constitutional complaints Cardiovascular: Reports no additional cardiovascular complaints Respiratory: Reports no additional respiratory complaints Reports system reviewed and no additional complaints, except as documented Physical Exam Vital Signs: Last Vital Signs Temp 98.0 F 06/27/23 08:08 Pulse 142 H 06/27/23 09:09 Resp 15 06/27/23 08:08 BP 118/63 06/27/23 08:08 Pulse Ox 96 06/27/23 08:08 O2 Del Method Room Air 06/27/23 08:08 BMI result Body Mass Index 34.7 Const General: cooperative, comfortable, no acute distress, alert and awake Nutritional Appearance: overweight Orientation/consciousness: patient oriented x3 Neck Neck: Yes trachea midline and Yes supple Resp Effort & Inspection: normal respiratory effort Auscultation: crackles on the left at the base Cardio Jugular venous distension: no JVD Rate: tachycardic Rhythm: abnormal rhythm irregularly irregular Heart sounds: S1 normal heart sound present, S2 normal heart sound present, no click, no gallops and Murmur heart sound present systolic Skin General skin exam: no rashes or lesions noted Neuro General: patient oriented x3 and no focal motor deficits Extrem General: Yes no clubbing, cyanosis or edema Objective Labs and Meds 06/26/23 05:47 06/26/23 05:47 Progress Note: A&P Assessment and plan (1) Atrial fibrillation with rapid ventricular response: Status: Acute Assessment and Plan: Atrial fibrillation rapid ventricular response. This appears to be new onset. Patient does not recall being in atrial fibrillation before this as outpatient. I confirmed this with reviewing patient's trimmer tailer's note. Definitely could be precipitated by her COVID infection. This was discussed with the patient. Will pursue rate control for now given her significant left atrial enlargement. However if rate remains difficult control will pursue rhythm control approach with synchronized cardioversion. This was discussed with her. Increase metoprolol to 50 mg b.i.d.. Give couple of doses of IV digoxin. Continue full oral anticoagulation with Eliquis. (2) CHF (congestive heart failure): Status: Acute Assessment and Plan: Prior history of congestive heart failure with LV systolic dysfunction. Clinically has some rales in the left base. BNP is elevated. IV diuresis with Lasix 40 mg. Strict intake and output chart needs to be pursued. Continue trend renal function, electrolytes and BNP tomorrow. Continue Entresto therapy. Continue metoprolol for neurohormonal modulation as well as rate control as above. Will follow with you Time Spent With Patient Time: Total time managing care of this patient today ____ minutes. Progress Note: Quality Stroke Does the patient have a stroke diagnosis?: No Procedures Date of Service Date of Service: 06/27/23
[2023-06-27] MEDS: Digoxin 0.5 MG/2 ML AMPUL 0.125 MG IVPUSH (18:22)
--- NOTE | 2023-06-27 19:42 | PC.NURSE ---
I assumed car eof the pt at 1900. Pt is resting in bed after standing to use the commode. Pt is A&Ox4, GCS 15, with warm, dry skin. Pt has a 22g IV in the left AC. Pt's HR noted to be bouncing between 110-170's. Pt is asymptomatic. Hospitalist aware.
[2023-06-27] MEDS: Acetaminophen 325 MG TABLET 650 MG PO (20:48)
[2023-06-27] MEDS: Pravastatin Sodium 40 MG TABLET PO (20:49)
[2023-06-27] MEDS: Metoprolol Tartrate 25 MG TABLET PO (20:49)
[2023-06-27] MEDS: Apixaban 5 MG TABLET PO (20:49)
[2023-06-27] MEDS: Sacubitril/Valsartan 49/51 1 TAB TABLET PO (20:53)
--- NOTE | 2023-06-27 22:34 | PC.NURSE ---
Addendum entered by Leonela Montaño RN 06/27/23 22:38: DR Mejia was notified and will continue to monitor Original Note: ambulated to the bathroom , HR 170's . Pt denied sob, no chest pain , no dizziness , heart rate down to 110's 120's at rest
[2023-06-27 23:01] LABS: B Type Natriuretic Peptide 672 pg/mL (<100)
[2023-06-28] VITALS (7 sets, daily range): BP systolic 107–152; BP diastolic 58–80; PULSE 70–111; RESP 17–20; TEMP 36.1–36.8; O2SAT 95–101
[2023-06-28 07:57] LABS: Anion Gap 13 (12-20); Blood Urea Nitrogen 32 mg/dL (9-16); Calcium 9.1 mg/dL (8.4-10.2); Carbon Dioxide 32 mmol/L (22-29); Chloride 103 mmol/L (96-108); Creatinine Clr Calc Pharmacy 40.9; Estimated Glomerular Filt Rate 49; Glucose Fasting 100 mg/dL (60-99); Potassium 3.7 mmol/L (3.3-5.1); Sodium 144 mmol/L (135-145)
[2023-06-28] MEDS: Sacubitril/Valsartan 49/51 1 TAB TABLET PO ×2 (09:18→20:16)
[2023-06-28] MEDS: Multivitamin TABLET 1 TAB PO (09:19)
[2023-06-28] MEDS: Metoprolol Tartrate 25 MG TABLET PO ×2 (09:19→20:16)
[2023-06-28] MEDS: Apixaban 5 MG TABLET PO ×2 (09:19→20:16)
[2023-06-28] MEDS: Cholecalciferol (Vitamin D3) 10 MCG TABLET PO (09:19)
--- NOTE | 2023-06-28 10:54 | PM.PNCARD ---
Subjective Subjective Date of Service: 06/28/23 Principal diagnosis: Atrial fibrillation with rapid ventricular response, cardiomyopathy, elevat Interval history: Swetha remains in atrial fibrillation with difficult control rate with heart rate up to 160 with minimal exertion going to the bathroom. Also with talking and with a little anxiety heart rate goes up to 140. She can feel the palpitations. Blood pressure is on the softer side. She denies any shortness of breath. Review of Systems Constitutional: Reports no additional constitutional complaints Cardiovascular: Denies chest pain, Reports rapid heart rate, Denies leg edema, Denies lightheadedness, Denies Loss of Consciousness and Reports dyspnea Respiratory: Reports no additional respiratory complaints and Reports dyspnea Gastrointestinal: Reports no additional gastrointestinal complaints Skin/Breast: Reports system reviewed and no additional complaints, except as docu Reports system reviewed and no additional complaints, except as documented Physical Exam Vital Signs: Last Vital Signs Temp 97.5 F 06/28/23 08:00 Pulse 106 H 06/28/23 08:00 Resp 20 06/28/23 08:00 BP 116/69 06/28/23 08:00 Pulse Ox 98 06/28/23 08:00 O2 Del Method Room Air 06/28/23 08:00 BMI result Body Mass Index 34.7 Const General: cooperative, comfortable, no acute distress, alert and awake Nutritional Appearance: overweight Orientation/consciousness: patient oriented x3 Neck Neck: Yes trachea midline and Yes supple Resp Effort & Inspection: normal respiratory effort Auscultation: crackles on the left at the base Cardio Jugular venous distension: no JVD Rate: tachycardic Rhythm: abnormal rhythm irregularly irregular Heart sounds: S1 normal heart sound present, S2 normal heart sound present, no click, no gallops and Murmur heart sound present systolic Skin General skin exam: no rashes or lesions noted Neuro General: patient oriented x3 and no focal motor deficits Extrem General: Yes no clubbing, cyanosis or edema Objective Labs and Meds 06/26/23 05:47 06/28/23 07:09 Lab results: Laboratory Results - last 24 hr 06/27/23 06/28/23 22:34 07:09 Hold Purple Top SEE NOTE Sodium 144 Potassium 3.7 Chloride 103 Carbon Dioxide 32 H Anion Gap 13 BUN 32 H Creatinine 1.08 Estim Creat Clear Calc 40.9 Estimated GFR 49 Fasting Glucose 100 H Calcium 9.1 B-Natriuretic Peptide 672 H Progress Note: A&P Assessment and plan (1) Atrial fibrillation with rapid ventricular response: Status: Acute Assessment and Plan: Atrial fibrillation with difficult control rate with current medications with significant left atrial enlargement with borderline blood pressure. Will pursue synchronized cardioversion. Discussed with patient the risks, benefits of synchronized cardioversion. She has been taking her Eliquis religiously. Will most likely require antiarrhythmic drug therapy post cardioversion if she response. Discussed with her the management plan. She understands agrees. (2) CHF (congestive heart failure): Status: Acute Assessment and Plan: Prior cardiomyopathy with improved LV ejection fraction Entresto therapy. Continue Entresto. Continue metoprolol at 25 mg b.i.d.. Will pursue synchronized cardioversion as above. Clinically does appear to be in overt heart failure. Can switch to oral Lasix therapy. Will follow with her Time Spent With Patient Time: Total time managing care of this patient today ____ minutes. Progress Note: Quality Stroke Does the patient have a stroke diagnosis?: No Procedures Date of Service Date of Service: 06/28/23
--- NOTE | 2023-06-28 16:32 | HO.PM.IMPN ---
Subjective Subjective Date of Service: 06/28/23 Interval History: AF with RVR, NSTEMI, CHF and covid Review of Systems sob improving denies any chest pain or fevers Physical Exam Vital Signs: Vital Signs: Last Vital Signs Temp 97.1 F 06/28/23 12:00 Pulse 76 06/28/23 12:00 Resp 20 06/28/23 12:00 BP 107/58 L 06/28/23 12:00 Pulse Ox 96 06/28/23 12:00 O2 Del Method Room Air 06/28/23 12:00 BMI result Body Mass Index 34.7 General: AO X 3, no acute distress Resp: CTA bilateral CVS: S1,S2, iregular GI: +BS, NT, no distention Skin: No rash Neuro: motor grossly intact Psych: appropriate affect Objective Data Active Medications Acetaminophen (Acetaminophen 325 Mg Tablet) 650 mg PO Q6H PRN PRN Reason: Pain, Mild (Pain Scale 1-3) Last Admin: 06/27/23 20:48 Dose: 650 mg Documented By: TRIP Apixaban (Apixaban 5 Mg Tablet) 5 mg PO BID [facility] Last Admin: 06/28/23 09:19 Dose: 5 mg Documented By: KENNETH Furosemide (Furosemide 20 Mg Tablet) 20 mg PO DAILY [facility]; Protocol Last Admin: 06/28/23 14:11 Dose: Not Given Documented By: KENNETH Non-Admin Reason: NPO Melatonin (Melatonin 3 Mg Tablet) 6 mg PO BEDTIME PRN PRN Reason: Insomnia Metoprolol Tartrate (Metoprolol Tartrate 25 Mg Tablet) 25 mg PO BID [facility]; Protocol Last Admin: 06/28/23 09:19 Dose: 25 mg Documented By: KENNETH Multivitamins/Vitamin C (Multivitamin Tablet) 1 tab PO DAILY [facility] Last Admin: 06/28/23 09:19 Dose: 1 tab Documented By: KENNETH Ondansetron HCl (Ondansetron Hcl 4 Mg/2 Ml Vial) 4 mg IVPUSH Q8H PRN PRN Reason: Nausea and Vomiting Last Admin: 06/26/23 11:49 Dose: 4 mg Documented By: JORDON Pravastatin Sodium (Pravastatin Sodium 40 Mg Tablet) 40 mg PO BEDTIME [facility] Last Admin: 06/27/23 20:49 Dose: 40 mg Documented By: TRIP Sacubitril/Valsartan (Sacubitril/Valsartan 49/51 1 Tab Tablet) 1 tab PO BID [facility]; Protocol Last Admin: 06/28/23 09:18 Dose: 1 tab Documented By: KENNETH Sodium Chloride (0.9 % Sodium Chloride Flush 3 Ml Syringe) 3 ml IVFLUSH QSHIFT [facility] Last Admin: 06/28/23 09:19 Dose: 3 ml Documented By: KENNETH Vitamin D (Cholecalciferol (Vitamin D3) 10 Mcg Tablet) 10 mcg PO DAILY [facility] Last Admin: 06/28/23 09:19 Dose: 10 mcg Documented By: KENNETH Labs 06/26/23 05:47 06/28/23 07:09 Labs: Laboratory Results - last 24 hr 06/27/23 06/28/23 22:34 07:09 Hold Purple Top SEE NOTE Anion Gap 13 Estim Creat Clear Calc 40.9 Estimated GFR 49 Fasting Glucose 100 H Calcium 9.1 B-Natriuretic Peptide 672 H Microbiology Microbiology Results: Microbiology 06/25/23 19:55 Urine Culture - Final Urine clean catch - Urine joshua top Escherichia coli Assessment and Plan (1) Atrial fibrillation with rapid ventricular response: Status: Acute (2) CHF (congestive heart failure): Status: Acute (3) COVID-19: Status: Acute (4) Elevated troponin: Status: Acute Plan 82/F with unspecified CHF, AF on eliquis, HLD presented with palpitation and found to have covid, AF with RVR and NSTEMI and acute CHF Permanent AFib with RVR likely from covid, given iv metoprolol and iv dig in ed, rate is better -continue metoprolol 25 bid (atenolol at home),eliquis for stroke prevention -no change per cardio Acute on chronic HFrEF, exacerbated by AF w/ RVR -continue iV Lasix to PO lasix per card recommendation echo track i/o, low salt diet. continue Entresto,lasix Type 2 NSTEMI--likely from AF w/ RVR, continue BB, statin and eliquis so no ASA. Trend troponin I Covid-19, asymptomatic, no indication for steroid or antiviral meds, covid isolation HLD--statin DVT Prophylaxis: Eliquis need for inpt: mnaagement of acute heart fialure, AF w/ RVE and acute HF being titreated with IV diuretics,expert consultation. Quality Stroke Does the patient have a stroke diagnosis?: No VTE Prior VTE?: No VTE Risk Level:: Medical - moderate - high VTE Device Contraindication: Treatment Not Indicated VTE Drug Contraindication: N/A - Med Ordered
--- NOTE | 2023-06-28 17:25 | MHC.SHP ---
Pre-Procedural Eval Section A Date of Service: 06/28/23 The patient is an INPATIENT: Yes Changes since office visit: Yes Patient answered all questions; No Cold of Flu in the past 2 weeks, No New Medical Problems and No Changes in Medication The History & Physical has been completed within 30 days and I have reviewed it.: Yes Section B Chief Complaint: Atrial fibrillation Allergies: Allergies Allergy/AdvReac Type Severity Reaction Status Date / Time No Known Allergies Allergy Verified 04/20/23 09:42 Plan I have reviewed the history and physical and performed a pertinent physical examination on my patient. No changes have occurred unless specified. Time Spent With Patient Time: Total time managing care of this patient today ____ minutes.
[2023-06-28] MEDS: Pravastatin Sodium 40 MG TABLET PO (20:16)
[2023-06-29] VITALS (10 sets, daily range): BP systolic 96–143; BP diastolic 57–89; PULSE 68–130; RESP 16–22; TEMP 36.1–37.1; O2SAT 95–99
[2023-06-29] MEDS: Cholecalciferol (Vitamin D3) 10 MCG TABLET PO (08:55)
[2023-06-29] MEDS: Apixaban 5 MG TABLET PO ×2 (08:55→20:38)
[2023-06-29] MEDS: Metoprolol Tartrate 25 MG TABLET PO ×2 (08:55→20:38)
[2023-06-29] MEDS: Sacubitril/Valsartan 49/51 1 TAB TABLET PO ×2 (08:55→20:38)
[2023-06-29] MEDS: Multivitamin TABLET 1 TAB PO (08:55)
--- NOTE | 2023-06-29 09:08 | PC.NURSE ---
Metoprolol IV push was ordered, patient has PO dose 25mg scheduled - HR at rest 120-130 - checked with Dr. Saldaña if ok to give both and was told to hold IV dose, PO dose given. Patient refused to take lasix this morning stating she will take it after the procedure.
--- NOTE | 2023-06-29 11:47 | ECG_ITS ---
Test Reason : postop Blood Pressure : / mmHG Vent. Rate : 074 BPM Atrial Rate : 074 BPM P-R Int : 170 ms QRS Dur : 098 ms QT Int : 394 ms P-R-T Axes : 081 -44 124 degrees QTc Int : 437 ms Sinus rhythm with occasional Premature ventricular complexes and Premature atrial complexes Left axis deviation Pulmonary disease pattern Inferior infarct , age undetermined Abnormal ECG When compared with ECG of 25-JUN-2023 17:16, Sinus rhythm has replaced Atrial fibrillation Nonspecific T wave abnormality no longer evident in Inferior leads Referred By: Cosmo Gayle Electronically Signed By:COSMO GAYLE MD
--- NOTE | 2023-06-29 12:30 | PM.DS ---
DS: Providers Provider Date of Service: 06/29/23 Date of admission: 06/25/23 20:27 Date of discharge: 06/29/23 Primary care physician: Seth Khan MD Consults: 06/25/23 20:27 Consult to Cardiology Routine Consulting Provider: [facility] Cardiovascular Services Reason for consultation: afib with rvr Attending physician on discharge: Darell Ruffin Discharging clinician: Darell Ruffin DS: Diagnosis Discharge Diagnosis (1) Atrial fibrillation with rapid ventricular response: Status: Acute (2) CHF (congestive heart failure): Status: Acute (3) COVID-19: Status: Acute (4) Elevated troponin: Status: Acute DS: Summary Hospital Course Hospital Course: HPI:82-year-old female with pertinent history of congestive heart failure, unspecified EF, atrial fibrillation on Eliquis, mixed hyperlipidemia who presents to the emergency department for evaluation of palpitations. Patient states she has been feeling weak for the last 10-14 days. She had runny nose, watering of eyes and felt like she had over the last 5-7 days, patient states he has been having palpitations. Also has associated nausea. No fever, chills, cough, chest discomfort, overt dyspnea, abdominal pain, changes in urinary or bowel habits. In the emergency department, patient was found to be in AFib with RVR. Cardiology was consulted who requested admission. Imaging with mild cardiomegaly and BNP found to be elevated Hospital course: Patient was admitted for CHF exacerbation and AFib with RVR: Found to have mildly elevated troponins, her echo shows mildly reduced EF from 45-50%: Patient received IV Lasix, also received IV metoprolol and digoxin for AFib, subsequently required cardioversion synchronized: Heart rate seems to be improved, cardiology recommended to add amiodarone upon discharge-amiodarone 400 mg p.o. b.i.d. for 2 weeks until 07/12/23,then switch to amiodarone 200mg daily. Continue uninterrupted Eliquis. Above management discussed with the patient in length she understand in agreement with the plan, follow-up with Cardiology outpatient. plan: amiodarone upon discharge-amiodarone 400 mg p.o. b.i.d. for 2 weeks until 07/12/23,then switch to amiodarone 200mg daily. Continue uninterrupted Eliquis. follow-up with Cardiology outpatient. Above management discussed with the patient in length she understand in agreement with the plan,time spent 50 min. Time Attestation Discharge coordination time: Greater than 30 minutes Quality: Safe Use of Opioids Does Pt have an Active Cancer Diagnosis on the Problem List?: No Quality: Stroke Does the patient have a stroke diagnosis?: No Physical Exam Vital Signs: Vital Signs: Last Vital Signs Temp 98.0 F 06/29/23 12:15 Pulse 74 06/29/23 12:15 Resp 22 H 06/29/23 12:15 BP 96/57 L 06/29/23 12:15 Pulse Ox 96 06/29/23 12:15 O2 Del Method Room Air 06/29/23 12:15 O2 Flow Rate 92 06/28/23 19:14 BMI result Body Mass Index 34.7 General: AO X 3, no acute distress Resp: CTA bilateral CVS: S1,S2, iregular GI: +BS, NT, no distention Skin: No rash Neuro: motor grossly intact Psych: appropriate affect DS: Data Imaging Chest x-ray: Radiologist's impression: ITS Impressions Chest X-Ray 06/25/23 17:53 IMPRESSION: Mild cardiomegaly. No acute intrathoracic disease. Discharge Plan Discharge Anticipated Discharge Date/Time: 06/29/23 12:17 Patient Disposition: Home Health Service Discharge Diagnosis: CHF exacerbation and AFib with RVR, COVID . Referrals: Seth Khan MD [Primary Care Provider] - 1 Week Discharge Medications: New metoprolol tartrate 25 mg Tablet 25 mg PO BID Qty: 60 0RF Protocol: Hold for SBP/HR < HOLD for SBP < : 90 HOLD for HR < : 60 amiodarone 200 mg Tablet 400 mg PO BID Qty: 80 0RF Rx Instructions: use 400 mg(2tabs) po amiodarone twice daily for 2weeks (until 07/12/23),then switch to amiodarone 200 mg daily on 07/13/23. Continued Entresto 49-51 mg tablet 1 tab PO BID furosemide 20 mg tablet 40 mg PO BID pravastatin 40 mg tablet 40 mg PO BEDTIME Eliquis 5 mg tablet 5 mg PO BID Discontinued atenolol 50 mg tablet 50 mg PO DAILY Discharge Orders: Discharge Order (Routine); Ordered 06/30/23 Ordered By: Darell Ruffin Diet: Advance to usual diet Activity on Discharge: As tolerated Stand Alone Forms: Patient Portal Discharge page Care Plan Goals: Patient was admitted for CHF exacerbation and AFib with RVR: Patient received IV Lasix, also received IV metoprolol and digoxin for AFib, subsequently required cardioversion synchronized: Heart rate seems to be improved, cardiology recommended to add amiodarone upon discharge-amiodarone 400 mg p.o. b.i.d. for 2 weeks until 07/12/23,then switch to amiodarone 200mg daily. Continue uninterrupted Eliquis. Above management discussed with the patient in length she understand in agreement with the plan, follow-up with Cardiology outpatient. Health Concerns: As above. Plan of Treatment: As above. Assessment: As above. Patient Instructions: Metoprolol (By mouth), Amiodarone (By mouth), Heart Failure (DC), A-fib (Atrial Fibrillation) (DC)
--- NOTE | 2023-06-29 12:33 | P.F2F_ITS ---
Service Date Service Date: 06/29/23 Encounter Date of encounter: 06/30/23 Encounter: chf,afib Reasons for Services Signs and symptoms assessed: Shortness of breath or chest pain Reason for physical therapy: home safety and mobility, therapeutic exercises, restore joint function, gait/transfer training, assess need for DME, ADL training, energy conservation and other MD Overseeing Care: Seth Khan Homebound: Leaving the home is medically contraindicated at this time without the asist of a device and/or another person due th the listed conditions above and below. Reason homebound: weakness related to hospital stay Homebound supporting statement: Patient generally weak had multiple comorbidities need help to go to appointments Certification: Based on the above findings, I certify that this patient is confined to the home and needs intermittent prison care, physical therapy and/or speech therapy, or continues to need occupational therapy. The patient is under my care, and I have initiated the establishment of the plan of care. The patient will be followed by a physician who will periodically review the plan of care. Time Spent With Patient Time: Total time managing care of this patient today ____ minutes.
[2023-06-29] MEDS: Amiodarone HCL 200 MG TABLET 400 MG PO ×2 (12:52→20:39)
--- NOTE | 2023-06-29 13:32 | P.PNCAR_ITS ---
Cardioversion Procedure Note Cardioversion Date of Procedure: Today Ordering Provider: Myself Performing Provider: Myself Indication for Procedure: Persistent symptomatic atrial fib control rate Pre-Op Diagnosis: Same Post-Op Diagnosis: None Performed with Transesophageal Echo: No History: See the consult note Consent: Verbal and Written consent was obtained from the patient before starting and after confirming NPO status. The patient was made aware of the risk of synchronized cardioversion including benefits and alternatives Procedure: After consent obtained, cardioversion pads were attached anteroposterior configuration and the patient was sedated by the anesthesia team. Once adequate sedation achieved, patient was delivered 200 joules of biphasic synchronized energy in anteroposterior configuration Complications: None Impression: Successful conversion to sinus rhythm with persistent frequent PACs post- conversion Recommendations: 1. Given her left atrial enlargement and frequent PACs most likely require antiarrhythmic drug support and was started on amiodarone 400 mg b.i.d. 2. Continue full oral anticoagulation 3. 12 lead EKG
--- NOTE | 2023-06-29 14:05 | MHC.CM.PN ---
EMR reviewed and per MD rounds, pt is not medically cleared for D/C due to cardioversion today. PT rec home with services. Pt will likely D/C tomorrow home with new VNA. CM will continue to follow.
--- NOTE | 2023-06-29 14:35 | PM.PNCARD ---
Subjective Subjective Date of Service: 06/29/23 Principal diagnosis: Atrial fibrillation with rapid ventricular response, cardiomyopathy, elevat Interval history: Patient status post cardioversion. Difficult control rate as well as hypertrophy fibrillation cardiomyopathy. Post-conversion patient had frequent PACs and short run of PAT. Blood pressure is not better controlled. Review of Systems Constitutional: Reports no additional constitutional complaints Cardiovascular: Denies lightheadedness, Denies Loss of Consciousness, Reports palpitations and Reports dyspnea Respiratory: Reports no additional respiratory complaints and Reports dyspnea Gastrointestinal: Reports no additional gastrointestinal complaints Genitourinary: Reports no additional female genitourinary complaints Psychiatric: Reports no additional psychiatric complaints Endocrine: Reports palpitations Physical Exam Vital Signs: Last Vital Signs Temp 98.0 F 06/29/23 12:15 Pulse 74 06/29/23 12:15 Resp 22 H 06/29/23 12:15 BP 96/57 L 06/29/23 12:15 Pulse Ox 96 06/29/23 12:15 O2 Del Method Room Air 06/29/23 12:15 O2 Flow Rate 92 06/28/23 19:14 BMI result Body Mass Index 34.7 Const General: cooperative, comfortable, no acute distress, alert and awake Nutritional Appearance: overweight Orientation/consciousness: patient oriented x3 Neck Neck: Yes trachea midline and Yes supple Resp Effort & Inspection: normal respiratory effort Auscultation: crackles on the left at the base Cardio Jugular venous distension: no JVD Rate: regular rate Rhythm: regular rhythm Heart sounds: S1 normal heart sound present, S2 normal heart sound present, no click, no gallops and Murmur heart sound present systolic Skin General skin exam: no rashes or lesions noted Neuro General: patient oriented x3 and no focal motor deficits Extrem General: Yes no clubbing, cyanosis or edema Objective Labs and Meds 06/26/23 05:47 06/28/23 07:09 Progress Note: A&P Assessment and plan (1) Atrial fibrillation with rapid ventricular response: Status: Acute Assessment and Plan: Difficult control atrial fibrillation with severe left atrial enlargement. Status post cardioversion. This should lead to symptom improvement. However require antiarrhythmic drug support. Will start on amiodarone loading 400 mg b.i.d.. Continue full oral anticoagulation, currently on Eliquis 5 mg b.i.d.. Importance of oral anticoagulation therapy was discussed. Avoidance of stimulants. EKGs post cardioversion and post amiodarone. Can keep in the hospital for 1 more day for observation. (2) CHF (congestive heart failure): Status: Acute Assessment and Plan: Cardiomyopathy and CHF with mildly reduced LV systolic function current neurohormonal modulation. Continue Entresto as well as metoprolol for neurohormonal modulation. No clinical signs of congestive heart failure at current point time. Can switch to p.o. Lasix. Will continue to follow with you Time Spent With Patient Time: Total time managing care of this patient today ____ minutes. Progress Note: Quality Stroke Does the patient have a stroke diagnosis?: No Procedures Date of Service Date of Service: 06/29/23
--- NOTE | 2023-06-29 16:23 | P.PNIM_ITS ---
Subjective Subjective Date of Service: 06/30/23 Physical Exam 2 Vital Signs: Vital Signs: Last Vital Signs Temp 97.5 F 06/29/23 14:59 Pulse 91 06/29/23 14:59 Resp 17 06/29/23 14:59 BP 140/67 H 06/29/23 14:59 Pulse Ox 98 06/29/23 14:59 O2 Del Method Room Air 06/29/23 14:59 O2 Flow Rate 92 06/28/23 19:14 BMI result Body Mass Index 34.7 Objective Data Active Medications Acetaminophen (Acetaminophen 325 Mg Tablet) 650 mg PO Q6H PRN PRN Reason: Pain, Mild (Pain Scale 1-3) Last Admin: 06/27/23 20:48 Dose: 650 mg Documented By: TRIP Amiodarone HCl (Amiodarone Hcl 200 Mg Tablet) 400 mg PO BID [facility] Last Admin: 06/29/23 12:52 Dose: 400 mg Documented By: JACOB Apixaban (Apixaban 5 Mg Tablet) 5 mg PO BID [facility] Last Admin: 06/29/23 08:55 Dose: 5 mg Documented By: JACOB Furosemide (Furosemide 20 Mg Tablet) 20 mg PO DAILY [facility]; Protocol Last Admin: 06/29/23 11:47 Dose: Not Given Documented By: JACOB Non-Admin Reason: Patient Refused Melatonin (Melatonin 3 Mg Tablet) 6 mg PO BEDTIME PRN PRN Reason: Insomnia Metoprolol Tartrate (Metoprolol Tartrate 25 Mg Tablet) 25 mg PO BID [facility]; Protocol Last Admin: 06/29/23 08:55 Dose: 25 mg Documented By: JACOB Multivitamins/Vitamin C (Multivitamin Tablet) 1 tab PO DAILY [facility] Last Admin: 06/29/23 08:55 Dose: 1 tab Documented By: JACOB Ondansetron HCl (Ondansetron Hcl 4 Mg/2 Ml Vial) 4 mg IVPUSH Q8H PRN PRN Reason: Nausea and Vomiting Last Admin: 06/26/23 11:49 Dose: 4 mg Documented By: JORDON Pravastatin Sodium (Pravastatin Sodium 40 Mg Tablet) 40 mg PO BEDTIME [facility] Last Admin: 06/28/23 20:16 Dose: 40 mg Documented By: LEONIDAS Sacubitril/Valsartan (Sacubitril/Valsartan 49/51 1 Tab Tablet) 1 tab PO BID [facility]; Protocol Last Admin: 06/29/23 08:55 Dose: 1 tab Documented By: JACOB Sodium Chloride (0.9 % Sodium Chloride Flush 3 Ml Syringe) 3 ml IVFLUSH QSHIFT [facility] Last Admin: 06/29/23 08:55 Dose: 3 ml Documented By: JACOB Vitamin D (Cholecalciferol (Vitamin D3) 10 Mcg Tablet) 10 mcg PO DAILY [facility] Last Admin: 06/29/23 08:55 Dose: 10 mcg Documented By: JACOB Labs 06/26/23 05:47 06/28/23 07:09 Assessment and Plan (1) Atrial fibrillation with rapid ventricular response: Status: Acute (2) CHF (congestive heart failure): Status: Acute (3) COVID-19: Status: Acute (4) Elevated troponin: Status: Acute Plan 82/F with unspecified CHF, AF on eliquis, HLD presented with palpitation and found to have covid, AF with RVR and NSTEMI and acute CHF Permanent AFib with RVR likely from covid, given iv metoprolol and iv dig in ed, rate is better continue metoprolol 25 bid (atenolol at home),eliquis for stroke prevention going for cardioversion. Acute on chronic HFrEF, exacerbated by AF w/ RVR echo: ef 45-50% track i/o, low salt diet. continue Entresto,lasix Type 2 NSTEMI--likely from AF w/ RVR, continue BB, statin and eliquis so no ASA. Trend troponin I Covid-19, asymptomatic, no indication for steroid or antiviral meds, covid isolation HLD--statin DVT Prophylaxis: Eliquis need for inpt: mnaagement of acute heart fialure, AF w/ RVE and acute HF being titreated with IV diuretics,expert consultation. Quality Stroke Does the patient have a stroke diagnosis?: No VTE Prior VTE?: No VTE Risk Level:: Medical - moderate - high VTE Device Contraindication: Treatment Not Indicated VTE Drug Contraindication: N/A - Med Ordered
[2023-06-29] MEDS: guaiFENesin 200 MG/10 ML 10 ML LIQUID PO (19:29)
[2023-06-29] MEDS: Pravastatin Sodium 40 MG TABLET PO (20:37)
[2023-06-30] VITALS: BP 92/53; PULSE 67; RESP 20; TEMP 36.5; O2SAT 100
[2023-06-30 03:10] VITALS: BP 120/55; PULSE 62; RESP 20; TEMP 36.4; O2SAT 96
[2023-06-30 07:46] VITALS: BP 132/63; PULSE 69; RESP 16; TEMP 36.9; O2SAT 96
[2023-06-30] MEDS: Amiodarone HCL 200 MG TABLET 400 MG PO (08:09)
[2023-06-30] MEDS: Apixaban 5 MG TABLET PO (08:10)
[2023-06-30] MEDS: Metoprolol Tartrate 25 MG TABLET PO (08:10)
[2023-06-30] MEDS: Multivitamin TABLET 1 TAB PO (08:10)
[2023-06-30] MEDS: Furosemide 20 MG TABLET PO (08:10)
[2023-06-30] MEDS: Sacubitril/Valsartan 49/51 1 TAB TABLET PO (08:10)
[2023-06-30] MEDS: Cholecalciferol (Vitamin D3) 10 MCG TABLET PO (08:10)
[2023-06-30] MEDS: guaiFENesin 200 MG/10 ML 10 ML LIQUID PO (08:12)
--- NOTE | 2023-06-30 10:16 | PM.PNCARD ---
Subjective Subjective Date of Service: 06/30/23 Principal diagnosis: Atrial fibrillation with rapid ventricular response, cardiomyopathy, elevat Interval history: Patient remains asymptomatic except for some cough. Denies any shortness of breath. Denies any palpitation feels better status post cardioversion. Does not recall undergoing the procedure. Remains in sinus rhythm. Review of Systems Constitutional: Reports no additional constitutional complaints Cardiovascular: Reports no additional cardiovascular complaints Respiratory: Reports cough Gastrointestinal: Reports no additional gastrointestinal complaints Musculoskeletal: Reports no additional musculoskeletal complaints Physical Exam Vital Signs: Last Vital Signs Temp 98.5 F 06/30/23 07:46 Pulse 69 06/30/23 07:46 Resp 16 06/30/23 07:46 BP 132/63 06/30/23 07:46 Pulse Ox 96 06/30/23 07:46 O2 Del Method Room Air 06/30/23 07:46 O2 Flow Rate 92 06/28/23 19:14 BMI result Body Mass Index 34.7 Const General: cooperative, comfortable, no acute distress, alert and awake Nutritional Appearance: overweight Orientation/consciousness: patient oriented x3 Neck Neck: Yes trachea midline and Yes supple Resp Effort & Inspection: normal respiratory effort Auscultation: crackles on the left at the base Cardio Jugular venous distension: no JVD Rate: regular rate Rhythm: regular rhythm Heart sounds: S1 normal heart sound present, S2 normal heart sound present, no click, no gallops and Murmur heart sound present systolic Skin General skin exam: no rashes or lesions noted Neuro General: patient oriented x3 and no focal motor deficits Extrem General: Yes no clubbing, cyanosis or edema Objective Labs and Meds 06/26/23 05:47 06/28/23 07:09 Progress Note: A&P Assessment and plan (1) Atrial fibrillation with rapid ventricular response: Status: Acute Assessment and Plan: Atrial fibrillation status post cardioversion, with significant left atrial enlargement and post cardioversion frequent PACs and atrial track was started on amiodarone therapy. Tolerating that well. Continue loading with amiodarone 400 mg b.i.d. for 2 weeks followed by 200 mg daily for maintenance. Continue full oral anticoagulation, currently on Eliquis 5 mg b.i.d.. In 6 weeks to 3 months time if she remains in sinus rhythm doing well and her LV ejection fraction which has not improved further improves can switch to an alternative antiarrhythmic such as dronedarone and/or flecainide if she has no evidence of coronary artery disease (2) CHF (congestive heart failure): Status: Acute Assessment and Plan: Prior history of CHF with worsening LV systolic dysfunction which by most recent echocardiogram her shows improvement in LVEF to 45-50%. This is most likely due to neurohormonal modulation with Entresto. Also continue metoprolol therapy for neurohormonal modulation. Follow-up with a hardening machine operator helper as outpatient echocardiogram. Continue diuretic therapy. Will sign of the case. Patient can be discharged home. Time Spent With Patient Time: Total time managing care of this patient today ____ minutes. Progress Note: Quality Stroke Does the patient have a stroke diagnosis?: No Procedures Date of Service Date of Service: 06/30/23
--- NOTE | 2023-06-30 11:21 | MHC.CM.PN ---
Second IMM 06/30/23, Pt has been medically cleared for DC, she will be transported by family, she will have home care services from [facility].
[2023-06-30 11:31] VITALS: BP 134/60; PULSE 92; RESP 16; TEMP 36.4; O2SAT 95
--- NOTE | 2023-06-30 15:20 | HO.POSTANES ---
Post Anesthesia Evaluation Post Anesthesia Evaluation Date of Service: 06/30/23 Vital Signs: Vital Signs Temp Pulse Resp BP Pulse Ox O2 Del Method 06/30/23 11:31 97.6 F 92 16 134/60 95 Room Air 06/30/23 07:46 98.5 F 69 16 132/63 96 Room Air Anesthesia: General Mental Status: Awake Pain Control: Satisfactory Nausea/Vomiting: None Hydration: Adequate Anesthesia-Related Issues: No Anes. Related Issues
== END 2023-06-30 13:00 | disposition home health service (06) | DRG 280 ==
LOC: HO.ED 18:24 → HO.EDOVER 20:33 → HO.IMC 06-27 20:49
PROVIDERS: Internal Medicine; Internal Medicine Cardiovascular Disease; Admitting Provider Student in an Organized Health Care Education/Training Program; Emergency Provider Emergency Medicine; PCP Internal Medicine; Visit Provider Internal Medicine
PROC: 5A2204Z Restoration of Cardiac Rhythm, Single (ICD-10-PCS; principal; 2023-06-29 10:40)
DX: I48.21 Permanent atrial fibrillation (principal); I21.A1 Myocardial infarction type 2; I50.23 Acute on chronic systolic (congestive) heart failure; U07.1 COVID-19; I42.9 Cardiomyopathy, unspecified; E78.2 Mixed hyperlipidemia; Z79.01 Long term (current) use of anticoagulants; Z79.899 Other long term (current) drug therapy
CPT/HCPCS: 0241U; 36415; 71045; 80048; 80076; 81001; 81003; 83735; 83880; 84443; 84484; 85025; 85610; 87086; 87088; 87186; 92960; 93005; 93306; 97161; 99285; J1160; J1940; J2405; J2704

== ENCOUNTER 2023-06-25 20:27 | Outpatient (BNV) | payer MEDICARE, SELFPAY | END 2023-06-27 07:00 | PROVIDERS: Admitting Provider Student in an Organized Health Care Education/Training Program; Emergency Provider Emergency Medicine; PCP Internal Medicine; Visit Provider Internal Medicine Cardiovascular Disease | DX: I48.91 Unspecified atrial fibrillation (principal) | CPT/HCPCS: 93306 ==

== ENCOUNTER → 2023-06-25 20:27 | Outpatient (BNV) | payer MEDICARE, SELFPAY | PROVIDERS: Admitting Provider Student in an Organized Health Care Education/Training Program; Emergency Provider Emergency Medicine; Visit Provider Student in an Organized Health Care Education/Training Program | DX: I48.91 Unspecified atrial fibrillation (principal); I50.9 Heart failure, unspecified; U07.1 COVID-19; R79.89 Other specified abnormal findings of blood chemistry | CPT/HCPCS: 99222; 99231; 99232; 99233; 99239; G0180 ==

== ENCOUNTER → 2023-06-25 20:27 | Outpatient (BNV) | payer MEDICARE, SELFPAY | PROVIDERS: Admitting Provider Student in an Organized Health Care Education/Training Program; Emergency Provider Emergency Medicine; Visit Provider Internal Medicine Cardiovascular Disease | DX: I48.91 Unspecified atrial fibrillation (principal); I50.9 Heart failure, unspecified | CPT/HCPCS: 92960; 93010; 99222; 99233 ==

== ENCOUNTER 2023-08-16 11:12 | Outpatient (AMB) | payer MEDICARE, SELFPAY ==
--- NOTE | 2023-08-16 11:13 | MHC.OFFVIS ---
Intake Vital Signs 08/16/23 11:17 Height 5 ft 2 in Weight 183 lb BMI 33.5 Intake Visit Reasons: Ov Right knee last 04/20/2023 Intake Note: Swetha is a 82 year old female who presents for a follow up of Right knee pain. Patient reports she was given an injection 04/20/2023 and it gave good relief. She states she would like to have another injection of her Right knee. She wishes to hold off on surgery for as as possible. She has taken Tylenol which gives her mild relief. She has not able to tolerate anti-inflammatory medicines because she is on Eliquis. She has done physical therapy exercises which aggravated her pain. Allergies No Known Allergies Allergy (Verified 08/16/23 11:20) Medication List - Last Reconciled 08/17/23 by Wai Kendrick MD amiodarone 400 mg (2 x 200 mg) PO BID apixaban (Eliquis) 5 mg PO BID furosemide 40 mg PO BID metoprolol tartrate 25 mg See Protocol PO BID pravastatin 40 mg PO BEDTIME sacubitril-valsartan 49-51 mg (Entresto) 1 tab PO BID [facility] Medical History (Updated 08/17/23 @ 06:54 by Wai Kendrick MD) Arthritis of right knee CHF (congestive heart failure) Atrial fibrillation with rapid ventricular response Tachycardia Afib Social History Household Members: None Housing: House Do you presently have visiting nurse or other home services: No Alcohol intake: never Patient Tobacco Use Status: Never used Tobacco service: No Current occupational status: 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 Physical Exam Vital Signs: BMI result Body Mass Index 33.5 Const Other: Well-nourished well-developed very friendly female awake alert and oriented x3 in no acute distress Extrem Other: Bilateral lower extremity examination shows good capillary refill, no skin lesions noted, normal sensation light touch Right knee examination shows a minimal effusion, palpable crepitus with range of motion, pain with range of motion, no instability Office Procedures Joint Injection/Drain Joint Injection/Drain Primary Site: right knee Prep: site was prepped using aseptic technique Injected: 40 mg of, DepoMedrol and 1% plain lidocaine Procedure: The patient tolerated the procedure well Coding 92603 - Large joint Procedure code (CPT) selection complete Results Reviewed Results Reviewed: X-rays of the patient's right knee show joint space narrowing, subchondral sclerosis, no acute bony abnormalities Assessment & Plan Assessment & Plan (1) Arthritis of right knee: Code(s): M17.11 - Unilateral primary osteoarthritis, right knee Plan Ms. May presents with right knee pain due to degenerative joint disease. I had a lengthy discussion with the patient regarding the treatment options. She wishes to hold off on surgery for as long as possible. I agree with this plan. The risks and benefits of a right knee cortisone injection were discussed at length with the patient. The patient wished to proceed with the injection. She tolerated the injection well. She will continue with her home exercise program. She will follow up with me on an as-needed basis should her symptoms not plateau at an unacceptable level over the next few months. Feel free to call me at any time should questions regarding her orthopedic management arise. I spent 22 minutes in reviewing the patient's records and imaging studies, seeing the patient and documenting in the medical record. Orders: Orders AMB Joint Injection/Aspiration 08/16/23 M17.11 - Unilateral primary osteoarthritis, right knee Coding Level of Care Code Est Pt Level 2 (33726) Diagnoses Arthritis of right knee M17.11 CPT Codes Coding - 99211 Large joint: 85998 - Large joint ([id number])
[2023-08-16 11:17] VITALS: BMI 33.5
== END 2023-08-16 11:54 | disposition home or self-care (01) ==
PROVIDERS: PCP Internal Medicine; Visit Provider Orthopaedic Surgery
DX: M17.11 Unilateral primary osteoarthritis, right knee (principal)
CPT/HCPCS: 20610; 99213

== ENCOUNTER → 2023-08-16 11:12 | Outpatient (BNVA) | payer MEDICARE, SELFPAY | PROVIDERS: PCP Internal Medicine; Visit Provider Orthopaedic Surgery | DX: M17.11 Unilateral primary osteoarthritis, right knee (principal) | CPT/HCPCS: 20610; 99212; J1020 ==

== ENCOUNTER 2023-11-15 10:59 | Outpatient (AMB) | payer MEDICARE, SELFPAY ==
[2023-11-15 11:17] VITALS: BMI 33.5
--- NOTE | 2023-11-15 11:17 | A.OFFVIS_ITS ---
Vital Signs 11/15/23 11:17 Height 5 ft 2 in Weight 183 lb BMI 33.5 Intake Visit Reasons: OV- Right knee INJ 04/20/23-follow up Intake Note: Swetha is a 83 year old female who presents for a follow up for her Right knee pain. Patient reports she had a Right knee injection on 08/16/2023 and it gave her good relief. She would like to have a repeat Right knee injection. She has tried Tylenol which gives only mild relief. She has not take anti-inflammatory medicines because she is on Eliquis. She would to hold off surgery for as long as possible Allergies No Known Allergies Allergy (Verified 11/15/23 11:35) Medication List - Last Reconciled 11/15/23 by Wai Kendrick MD amiodarone 400 mg (2 x 200 mg) PO BID apixaban (Eliquis) 5 mg PO BID furosemide 40 mg PO BID metoprolol tartrate 25 mg See Protocol PO BID pravastatin 40 mg PO BEDTIME sacubitril-valsartan 49-51 mg (Entresto) 1 tab PO BID PFSH Medical History Arthritis of right knee CHF (congestive heart failure) Atrial fibrillation with rapid ventricular response Tachycardia Afib Social History Household Members: None Housing: House Do you presently have visiting nurse or other home services: No Alcohol intake: never Patient Tobacco Use Status: Never used Tobacco service: No Current occupational status: 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 Physical Exam Vital Signs: BMI result Body Mass Index 33.5 Const Other: Well-nourished well-developed very friendly female awake alert and oriented x3 in no acute distress Extrem Other: Bilateral lower extremity examination shows good capillary refill, no skin lesions noted, normal sensation light touch Right knee examination shows a minimal effusion palpable crepitus with of motion pain with range motion, no instability Office Procedures Joint Injection/Drain Joint Injection/Drain Primary Site: right knee Prep: site was prepped using aseptic technique Injected: 40 mg of, DepoMedrol and 1% plain lidocaine Procedure: The patient tolerated the procedure well Coding 97769 - Large joint Procedure code (CPT) selection complete Results Reviewed Results Reviewed: X-rays of the patient's right knee show joint space narrowing, subchondral sclerosis, no acute bony abnormalities Assessment & Plan Assessment & Plan (1) Arthritis of right knee: Code(s): M17.11 - Unilateral primary osteoarthritis, right knee Category: Medical Plan Ms. May presents with progressively worsening right knee pain due to deg enerative joint disease. I had a lengthy discussion with the patient regarding the treatment options. She wishes to hold off on surgery for as long as possible. I agree with this plan. The risks and benefits of a cortisone injection were discussed at length with the patient. The patient wished to proceed. She tolerated the injection well. She will continue with her home exercise program. She will follow up with me on an as-needed basis should her symptoms not plateau at an unacceptable level over the next few months. Feel free to call me at any time should questions regarding her orthopedic management arise. I spent 22 minutes in reviewing the patient's records and imaging studies, seeing the patient and documenting in the medical record. Orders: Orders AMB Joint Injection/Aspiration Today M17.11 - Unilateral primary osteoarthritis, right knee Coding Level of Care Code Est Pt Level 3 (48731) Diagnoses Arthritis of right knee M17.11 CPT Codes Coding - Large joint: 58915 - Large joint ([id number])
== END 2023-11-15 12:48 | disposition home or self-care (01) ==
PROVIDERS: PCP Internal Medicine; Visit Provider Orthopaedic Surgery
DX: M17.11 Unilateral primary osteoarthritis, right knee (principal)
CPT/HCPCS: 20610; 99213

== ENCOUNTER → 2023-11-15 10:59 | Outpatient (BNVA) | payer MEDICARE, SELFPAY | PROVIDERS: PCP Internal Medicine; Visit Provider Orthopaedic Surgery | DX: M17.11 Unilateral primary osteoarthritis, right knee (principal) | CPT/HCPCS: 20610; 99212; J1010 ==

== ENCOUNTER 2023-11-23 13:56 | Outpatient (AMB) | payer MEDICARE, SELFPAY ==
[2023-11-23 14:00] VITALS: BMI 33.5
--- NOTE | 2023-11-23 14:00 | A.OFFVIS_ITS ---
Vital Signs 11/23/23 14:00 Height 5 ft 2 in Weight 183 lb BMI 33.5 Intake Visit Reasons: New problem - Right shoulder INJ Intake Note: Swetha is a 83 year old right hand dominant female who presents today for a evaluation of her right shoulder pain. Patient reports ongoing pain for many years. She has done physical therapy exercises which aggravated her pain. She reports mild weakness when lifting her right hand above shoulder height. She has tried Tylenol which gives her minimal relief. She is not able to take anti- inflammatory medicines because she is on Eliquis. She wishes to hold off on surgery for as long as possible. Allergies No Known Allergies Allergy (Verified 11/23/23 14:04) Medication List - Last Reconciled 11/24/23 by Wai Kendrick MD amiodarone 400 mg (2 x 200 mg) PO BID apixaban (Eliquis) 5 mg PO BID furosemide 40 mg PO BID metoprolol tartrate 25 mg See Protocol PO BID pravastatin 40 mg PO BEDTIME sacubitril-valsartan 49-51 mg (Entresto) 1 tab PO BID PFSH Medical History Arthritis of right knee CHF (congestive heart failure) Atrial fibrillation with rapid ventricular response Tachycardia Afib Social History Household Members: None Housing: House Do you presently have visiting nurse or other home services: No Alcohol intake: never Patient Tobacco Use Status: Never used Tobacco service: No Current occupational status: 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 Physical Exam Vital Signs: BMI result Body Mass Index 33.5 Const Other: Well-nourished well-developed very friendly female awake alert and oriented x3 in no acute distress Extrem Other: Bilateral upper extremity examination shows good capillary refill, no skin lesions noted, normal sensation light touch Right shoulder examination shows full active range of motion when compared to her left shoulder, 4/5 strength with supraspinatus testing, positive impingement signs, no instability Office Procedures Joint Injection/Drain Joint Injection/Drain Primary Site: right shoulder Injected: 40 mg of, DepoMedrol and 1% plain lidocaine Procedure: The patient tolerated the procedure well Coding 07049 - Large joint Procedure code (CPT) selection complete Assessment & Plan Assessment & Plan (1) Impingement of right shoulder: Code(s): M25.811 - Other specified joint disorders, right shoulder Category: Medical Plan Ms. May presents with right shoulder pain due to impingement syndrome and rotator cuff tendinosis versus possible rotator cuff tearing. I had a lengthy discussion with the patient regarding the treatment options. She wishes to hold off on surgery for as long as possible. I agree with this plan. The risks and benefits of a right shoulder cortisone injection were discussed at length with the patient. The patient wished to proceed. She tolerated the injection well. She will continue with her home stretching program. She will follow up with me on an as-needed basis should her symptoms not plateau at an unacceptable level over the next few months. Feel free to call me at any time should questions regarding her orthopedic management arise. I spent 20 minutes in reviewing the patient's records and imaging studies, seeing the patient and documenting in the medical record. Orders: Orders AMB Joint Injection/Aspiration 11/23/23 M25.811 - Other specified joint disorders, right shoulder Coding Level of Care Code Est Pt Level 3 (79712) Diagnoses Impingement of right shoulder M25.811 CPT Codes Coding - Large joint: 37867 - Large joint ([id number])
== END 2023-11-23 14:19 | disposition home or self-care (01) ==
PROVIDERS: PCP Internal Medicine; Visit Provider Orthopaedic Surgery
DX: M25.811 Other specified joint disorders, right shoulder (principal)
CPT/HCPCS: 20610; 99213

== ENCOUNTER → 2023-11-23 13:56 | Outpatient (BNVA) | payer MEDICARE, SELFPAY | PROVIDERS: PCP Internal Medicine; Visit Provider Orthopaedic Surgery | DX: M25.811 Other specified joint disorders, right shoulder (principal) | CPT/HCPCS: 20610; 99212; J1010 ==

== ENCOUNTER 2024-02-29 11:06 | Outpatient (AMB) | payer MEDICARE, SELFPAY ==
[2024-02-29 11:07] VITALS: BMI 33.5
--- NOTE | 2024-02-29 11:07 | MHC.OFFVIS ---
Vital Signs 02/29/24 11:07 Height 5 ft 2 in Weight 183 lb BMI 33.5 Intake Visit Reasons: Right knee pain Intake Note: Swetha is a 83 year old female who presents for a follow up for her Right knee pain. Patient reports she had a Right knee injection on 08/16/2023 and it gave her good relief. She would like to have a repeat Right knee injection. She has tried Tylenol which gives only mild relief. She has not take anti-inflammatory medicines because she is on Eliquis. She would to hold off surgery for as long as possible Acute my tried Allergies No Known Allergies Allergy (Verified 11/23/23 14:04) Medication List - Last Reconciled 02/29/24 by Wai Kendrick MD amiodarone 400 mg (2 x 200 mg) PO BID apixaban (Eliquis) 5 mg PO BID furosemide 40 mg PO BID metoprolol tartrate 25 mg See Protocol PO BID pravastatin 40 mg PO BEDTIME sacubitril-valsartan 49-51 mg (Entresto) 1 tab PO BID PFSH Medical History Arthritis of right knee CHF (congestive heart failure) Atrial fibrillation with rapid ventricular response Tachycardia Afib Social History Household Members: None Housing: House Do you presently have visiting nurse or other home services: No Alcohol intake: never Patient Tobacco Use Status: Never used Tobacco service: No Current occupational status: 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 Physical Exam Vital Signs: BMI result Body Mass Index 33.5 Const Other: Well-nourished well-developed very friendly female awake alert and oriented x3 in no acute distress Extrem Other: Bilateral lower extremity examination shows good capillary refill, no skin lesions noted, normal sensation light touch Right knee examination shows a minimal effusion, palpable crepitus with range of motion, pain with range of motion, no instability Office Procedures Joint Injection/Aspiration Joint Injection/Aspiration Primary Site: right knee Prep: site was prepped using aseptic technique Injected: 40 mg of, DepoMedrol and 1% plain lidocaine Procedure: The patient tolerated the procedure well Coding 23880 - Large joint Procedure code (CPT) selection complete Results Reviewed Results Reviewed: X-rays of the patient's right knee taken previously show joint space narrowing, subchondral sclerosis, no acute bony abnormalities Assessment & Plan Assessment & Plan (1) Right knee pain: Code(s): M25.561 - Pain in right knee (2) Arthritis of right knee: Code(s): M17.11 - Unilateral primary osteoarthritis, right knee Category: Medical Plan Ms. May presents with right knee pain due to degenerative joint disease. I had a lengthy discussion with the patient regarding the treatment options. The risks and benefits of a right knee cortisone injection were discussed at length with the patient. The patient wished to proceed. She tolerated the injection well. She will continue with her home exercise program. She will contact me prior to her follow-up appointment in 3 months should any questions or concerns arise. Feel free to call me at any time should questions regarding her orthopedic management arise. I spent 21 minutes in reviewing the patient's records and imaging studies, seeing the patient and documenting in the medical record. Orders: Orders AMB Joint Injection/Aspiration Today M17.11 - Unilateral primary osteoarthritis, right knee Coding Level of Care Code Est Pt Level 3 (53457) Complex EM visit Add On G2211 Diagnoses Right knee pain M25.561 Arthritis of right knee M17.11 CPT Codes Coding - 52646 Large joint: 72778 - Large joint ([id number])
== END 2024-02-29 11:26 | disposition home or self-care (01) ==
PROVIDERS: PCP Internal Medicine; Visit Provider Orthopaedic Surgery
DX: M17.11 Unilateral primary osteoarthritis, right knee (principal)
CPT/HCPCS: 20610; 99213

== ENCOUNTER → 2024-02-29 11:06 | Outpatient (BNVA) | payer MEDICARE, SELFPAY | PROVIDERS: PCP Internal Medicine; Visit Provider Orthopaedic Surgery | DX: M25.561 Pain in right knee (principal); M17.11 Unilateral primary osteoarthritis, right knee | CPT/HCPCS: 20610; 99212; J1010 ==

== ENCOUNTER 2024-04-27 12:04 | Outpatient (REF) | payer MEDICARE, SELFPAY ==
--- NOTE | ~2024-04-27 | MM_ITS ---
EXAMINATION: MM SCREENING DIGITAL BREAST TOMOSYNTHESIS, BILATERAL CLINICAL INFORMATION: Screening. Asymptomatic. COMPARISON: Mammography: Comparison is made with available priors TECHNIQUE: Digital breast mammography with tomosynthesis is performed in both the craniocaudal and mediolateral oblique views along with computer-aided detection (CAD). FINDINGS: The breasts are heterogeneously dense, which may obscure small masses (ACR BI-RADS breast composition Category c). Right post lumpectomy changes are stable. There are no significant masses, abnormal calcifications, or other abnormalities. MM/MM tomosynthesis screening BI IMPRESSION: No mammographic evidence of malignancy. ASSESSMENT: BI-RADS BI-RADS 2 - Benign Findings RECOMMENDATION: Routine annual mammography screening. 1 year F/U This examination should not preclude the clinical evaluation of a suspicious palpable abnormality. This patient's information was entered into a reminder system with a target due date for their next mammogram. Electronically signed by: Ynes Prather DO 04/27/2024 04:25 PM [facility]NA[facility]
== END 2024-04-27 12:05 | disposition home or self-care (01) ==
LOC: HO.MAMMO 12:04
PROVIDERS: PCP Internal Medicine; Visit Provider Internal Medicine Medical Oncology
DX: Z12.31 Encounter for screening mammogram for malignant neoplasm of breast (principal)
CPT/HCPCS: 77063; 77067

== ENCOUNTER → 2024-04-27 12:15 | Outpatient (BNV) | payer MEDICARE, SELFPAY | PROVIDERS: PCP Internal Medicine; Visit Provider Internal Medicine | DX: Z12.31 Encounter for screening mammogram for malignant neoplasm of breast (principal) | CPT/HCPCS: 77063; 77067 ==

== ENCOUNTER 2024-05-31 10:59 | Outpatient (AMB) | payer MEDICARE, SELFPAY ==
[2024-05-31 11:01] VITALS: BMI 33.5
--- NOTE | 2024-05-31 11:01 | A.OFFVIS_ITS ---
Vital Signs 05/31/24 11:01 Height 5 ft 2 in Weight 183 lb BMI 33.5 Intake Visit Reasons: Right knee pain Intake Note: Swetha is a 83 year old female who presents with complaints of progressively worsening right knee pain. She describes her pain as sharp in nature. She has tried Tylenol which gives her minimal relief. She is not able to take anti- inflammatory medicines because she is on Eliquis. She has had cortisone injections in the past which gave her fairly good relief. She wishes to hold off on total knee replacement surgery for as long as possible. Allergies No Known Allergies Allergy (Verified 05/31/24 11:01) Medication List - Last Reconciled 05/31/24 by Wai Kendrick MD amiodarone 400 mg (2 x 200 mg) PO BID apixaban (Eliquis) 5 mg PO BID furosemide 40 mg PO BID metoprolol tartrate 25 mg See Protocol PO BID pravastatin 40 mg PO BEDTIME sacubitril-valsartan 49-51 mg (Entresto) 1 tab PO BID PFSH Medical History Arthritis of right knee CHF (congestive heart failure) Atrial fibrillation with rapid ventricular response Tachycardia Afib Social History Household Members: None Housing: House Do you presently have visiting nurse or other home services: No Alcohol intake: never Patient Tobacco Use Status: Never used Tobacco service: No Current occupational status: 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 Physical Exam Vital Signs: BMI result Body Mass Index 33.5 Const Other: Well-nourished well-developed very friendly female awake alert and oriented x3 in no acute distress Extrem Other: Bilateral lower extremity examination shows good capillary refill, no skin lesions noted, normal sensation light touch Right knee examination shows a minimal effusion, palpable crepitus with range of motion, pain with range of motion, range of motion from -3 degrees to 115 degrees, no instability Office Procedures AMB Joint Injection/Aspiration Joint Injection/Aspiration Primary Site: right knee Prep: site was prepped using aseptic technique Injected: 40 mg of, DepoMedrol and 1% plain lidocaine Procedure: The patient tolerated the procedure well Coding 12256 - Large joint Procedure code (CPT) selection complete Results Reviewed Results Reviewed: X-rays of the patient's right knee taken previously show joint space narrowing, subchondral sclerosis, no acute bony abnormalities Assessment & Plan Assessment & Plan (1) Arthritis of right knee: Code(s): M17.11 - Unilateral primary osteoarthritis, right knee Category: Medical (2) Right knee pain: Code(s): M25.561 - Pain in right knee Plan Ms. May presents with right knee pain due to degenerative joint disease. I had a lengthy discussion with the patient regarding the treatment options. The risks and benefits of a right knee cortisone injection were discussed at length with the patient. The patient wished to proceed. She tolerated the injection well. She will continue with her home exercise program. She will contact me prior to her follow-up appointment in 3 months should any questions or concerns arise. Feel free to call me at any time should questions regarding her orthopedic management arise. I spent 22 minutes in reviewing the patient's records and imaging studies, seeing the patient and documenting in the medical record. Orders: Orders AMB Joint Injection/Aspiration 05/31/24 M17.11 - Unilateral primary osteoarthritis, right knee Coding Level of Care Code Est Pt Level 3 (24274) Complex EM visit Add On G2211 Diagnoses Arthritis of right knee M17.11 Right knee pain M25.561 CPT Codes Coding - 14560 Large joint: 64248 - Large joint ([id number])
--- OUTSIDE RECORDS SUMMARY | 2024-05-31 11:01 | XMS_ITS ---
Author Name [facility] Organization Unknown History of Medication Use Medication Directions Dispensed Refills Start Date End Date Stat pravastatin 40 mg tablet TAKE 1 TABLET BY MOUTH EVERY DAY 11/14/2022 active furosemide 20 mg tablet TAKE 1 TABLET BY MOUTH EVERY DAY 11/14/2022 active tramadol 50 mg tablet TAKE 1 TABLET BY MOUTH EVERY 8 HOURS NEEDED FOR PAIN 11/14/2022 active Eliquis 5 mg tablet TAKE 1 TABLET BY MOUTH TWICE A DAY 11/14/2022 active atenolol 50 mg tablet TAKE 1 TABLET BY MOUTH EVERY DAY 11/14/2022 active lidocaine (PF) 10 mg/mL (1 %) injection solution Take 2 mL by injection route. 11/14/2022 active flecainide 100 mg tablet TAKE 1 TABLET BY MOUTH TWICE A DAY 11/14/2022 active Kenalog 40 mg/mL suspension for injection Take 1 mL by injection route. 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
== END 2024-05-31 12:03 | disposition home or self-care (01) ==
PROVIDERS: PCP Internal Medicine; Visit Provider Orthopaedic Surgery
DX: M17.11 Unilateral primary osteoarthritis, right knee (principal)
CPT/HCPCS: 20610; 99213

== ENCOUNTER → 2024-05-31 10:59 | Outpatient (BNVA) | payer MEDICARE, SELFPAY | PROVIDERS: PCP Internal Medicine; Visit Provider Orthopaedic Surgery | DX: M17.11 Unilateral primary osteoarthritis, right knee (principal); M25.561 Pain in right knee | CPT/HCPCS: 20610; 99212; J1010; J2003 ==

== ENCOUNTER 2024-08-30 11:16 | Outpatient (AMB) | payer MEDICARE, SELFPAY ==
--- NOTE | 2024-08-30 11:25 | MHC.OFFVIS ---
Vital Signs 08/30/24 11:27 Height 5 ft 2 in Weight 183 lb BMI 33.5 Intake Visit Reasons: Right knee pain Intake Note: Swetha is an 83 year old female who presents with complaints of progressively worsening right knee pain. She describes her pain as sharp in nature. She has had cortisone injections in the past which gave her fairly good relief. She denies any locking or giving way. She has tried Tylenol which gives her minimal relief. She can not take anti-inflammatory medicines because she is on Eliquis. Allergies No Known Allergies Allergy (Verified 08/30/24 11:28) Medication List - Last Reconciled 08/31/24 by Wai Kendrick MD amiodarone 400 mg (2 x 200 mg) PO BID apixaban (Eliquis) 5 mg PO BID furosemide 40 mg PO BID metoprolol tartrate 25 mg See Protocol PO BID pravastatin 40 mg PO BEDTIME sacubitril-valsartan 49-51 mg (Entresto) 1 tab PO BID PFSH Medical History Arthritis of right knee CHF (congestive heart failure) Atrial fibrillation with rapid ventricular response Tachycardia Afib Social History Household Members: None Housing: House Do you presently have visiting nurse or other home services: No Alcohol intake: never Patient Tobacco Use Status: Never used Tobacco service: No Current occupational status: 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 Physical Exam Vital Signs: BMI result Body Mass Index 33.5 Const Other: Well-nourished well-developed very friendly female awake alert and oriented x3 in no acute distress Extrem Other: Bilateral lower extremity examination shows good capillary refill, no skin lesions noted, normal sensation light touch Right knee examination shows a minimal effusion, palpable crepitus with range of motion, pain with range of motion, no instability Office Procedures AMB Joint Injection/Aspiration Joint Injection/Aspiration Primary Site: right knee Prep: site was prepped using aseptic technique Injected: 40 mg of, DepoMedrol and 1% plain lidocaine Procedure: The patient tolerated the procedure well Coding 08268 - Large joint Procedure code (CPT) selection complete Results Reviewed Results Reviewed: X-rays of the patient's right knee taken previously show joint space narrowing, subchondral sclerosis, no acute bony abnormalities Assessment & Plan Assessment & Plan (1) Arthritis of right knee: Code(s): M17.11 - Unilateral primary osteoarthritis, right knee Category: Medical (2) Right knee pain: Code(s): M25.561 - Pain in right knee Plan Ms. May presents with right knee pain due to degenerative joint disease. I had a lengthy discussion with the patient regarding the treatment options. The patient wishes to hold off on surgery for as long as possible. I agree with this plan. The risks and benefits of a right knee cortisone injection were discussed at length with the patient. The patient wished to proceed. She tolerated the injection well. She will continue with her home stretching program. She will contact me prior to her follow-up appointment in 3 months should any questions or concerns arise. Feel free to call me at any time should questions regarding her orthopedic management arise. I spent 20 minutes in reviewing the patient's records and imaging studies, seeing the patient and documenting in the medical record. Orders: Orders AMB Joint Injection/Aspiration Today M17.11 - Unilateral primary osteoarthritis, right knee Coding Level of Care Code Est Pt Level 3 (20686) Complex EM visit Add On G2211 Diagnoses Arthritis of right knee M17.11 Right knee pain M25.561 CPT Codes Coding - 97944 Large joint: 22678 - Large joint ([id number])
[2024-08-30 11:27] VITALS: BMI 33.5
--- OUTSIDE RECORDS SUMMARY | 2024-08-30 14:27 | XMS_ITS | Encounter Summary ---
Author Organization [facility] Address [address] [place] [address] Care Team Providers Care Rattle Leak And Squeak Repairer Name Role Phone Pedro Treviño MD Primary Care Provider Jena Narayanan Primary Care Provider Becca willett Encounter Details Date Type Department Care Team Description 04/18/2019 Release of Information Medical Records [address] [place] [id number] Abstract, Provider Social History Tobacco Use Types Packs/Day Years Used Date Smoking Tobacco: Former Smokeless Tobacco: Never Alcohol Use Standard Drinks/Week Comments No 0 (1 standard drink = 0.6 oz pur e alcohol) Sex Assigned at Date Recorded Not on file documented as of this encounter Plan of Treatment Not on file documented as of this encounter Visit Diagnoses Not on filedocumented in this encounter Care Teams Rattle Leak And Squeak Repairer Relationship Specialty Start Date End Date Pedro Treviño MD PCP - General Internal Medicine 05/03/12 07/23/19 Jena Lewis PCP - General Internal Medicine 07/24/19 documented as of this encounter
--- OUTSIDE RECORDS SUMMARY | 2024-08-30 14:27 | XMS_ITS | Encounter Summary ---
Author Organization [facility] Address [address] [place] [address] Care Team Providers Care Urology Surgeon Name Role Phone Pedro Treviño MD Primary Care Provider Jena Narayanan Primary Care Provider Becca willett Encounter Details Date Type Department Care Team Description 04/30/2019 Orders Only Physiatry - [place] [address] [place] [address] Jack Jordan DO Chronic bilateral low back pain with left-sided sciatica; Lumbar radiculitis; Spinal stenosis of lumbar region with neurogenic claudication Social History Tobacco Use Types Packs/Day Years Used Date Smoking Tobacco: Former Smokeless Tobacco: Never Alcohol Use Standard Drinks/Week Comments No 0 (1 standard drink = 0.6 oz pur e alcohol) Sex Assigned at Date Recorded Not on file documented as of this encounter Plan of Treatment Not on file documented as of this encounter Procedures Procedure Name Priority Date/Time Associated Diagnosis Comments MRI OF LUMBAR SPINE NO CONTRAST Routine 04/26/2019 Chronic bilateral low back pain with left-sided sciatica Lumbar radiculitis Spinal stenosis of lumbar region with neurogenic claudication documented in this encounter Results * MRI OF LUMBAR SPINE NO CONTRAST (04/26/2019) Jack Jordan DO MRI [facility] [address] [place] [address] documented in this encounter Visit Diagnoses Diagnosis Chronic bilateral low back pain with left-sided sciatica Lumbar radiculitis Thoracic or lumbosacral neuritis or radiculitis, unspecified Spinal stenosis of lumbar region with neurogenic claudication Spinal stenosis, lumbar region, with neurogenic claudication documented in this encounter Care Teams Urology Surgeon Relationship Specialty Start Date End Date Pedro Treviño MD PCP - General Internal Medicine 05/03/12 07/23/19 Jena Lewis PCP - General Internal Medicine 07/24/19 documented as of this encounter
--- OUTSIDE RECORDS SUMMARY | 2024-08-30 14:27 | XMS_ITS | Clinical Summary ---
Author Organization [facility] Address [address] [place] [address] Care Team Providers Care Hand Buffing Wheel Former Name Role Phone Jena Lewis MD Primary Care Provider Allergies No known active allergies Medications Medication Sig Dispensed Refills Start Date End Date Status atenolol (TENORMIN) tablet 50 mg Take 50 mg by mouth. 0 Active anastrozole (ARIMIDEX) 1 MG tablet Take 1 mg by mouth daily. 3 09/26/2017 Active pravastatin (PRAVACHOL) tablet 20 mg Take 20 mg by mouth daily. 3 09/13/2017 Active flecainide (TAMBOCOR) 100 MG tablet Take 100 mg by mouth every 12 (twelve) hours. 3 11/17/2017 Active CALCIUM PO Take by mouth. 0 Active Cholecalciferol (VITAMIN D3 PO) Take by mouth. 0 Activ e Multiple Vitamins-Minerals (MULTIVITAMIN PO) Take by mouth. 0 Act colten Melatonin 1 MG TABS tablet Take 1 mg by mouth every night at bedtime. 0 Active flecainide (TAMBOCOR) 100 MG tablet TAKE 1 TABLET BY MOUTH EVERY 12 HOURS 0 08/28/2019 Active aspirin 325 MG tablet Take 81 mg by mouth. 0 Active baclofen (LIORESAL) 10 MG tablet Take 5 mg by mouth daily as needed. 0 Active famotidine (PEPCID) 10 MG tablet Take 10 mg by mouth 2 (two) times a day as needed. 0 Active furosemide (LASIX) 20 MG tablet Take 20 mg by mouth. 0 Active traMADol (ULTRAM) 50 MG tablet Take 1 tab every 8 hours as needed for pain 90 tablet 0 01/08/2022 Active Eliquis 5 MG TABS tablet Take 1 tablet (5 mg total) by mouth 2 (two) times a day. 0 05/07/2022 Active Active Problems Problem Noted Date Diagnosed Date Closed nondisplaced fracture of middle third of scaphoid of left wrist with delayed healing 03/03/2021 Primary osteoarthritis of both knees 02/19/2020 Pain of left calf 04/06/2019 Arthritis of left knee 04/06/2019 Resolved Problems Problem Noted Date Diagnosed Date Resolved Date Open nondisplaced fracture o f middle third of scaphoid of left wrist with routine healing 02/17/2021 03/03/2021 Family History Medical History Relation Name Comments Heart disease Brother Heart disease Father Relation Name Status Comments Brother Father Social History Tobacco Use Types Packs/Day Years Used Date Smoking Tobacco: Former Smokeless Tobacco: Never Alcohol Use Standard Drinks/Week Comments Never 0 (1 standard drink = 0.6 oz pur e alcohol) Sex and Gender Information Value Date Recorded Sex Assigned at Not on file Gender Identity Not on file Sexual Orientation Not on file Job Start Date Occupation Industry Not on file Not on file Not on file Last Filed Vital Signs Vital Sign Reading Time Taken Comments Blood Pressure - - Pulse - - Temperature - - Respiratory Rate - - Oxygen Saturation - - Inhaled Oxygen Concentration - - Weight 87.1 kg (192 lb) 01/16/2021 11:27 AM EDT Height 157.5 cm (5' 2 ) 01/16/2021 11:27 AM EDT Body Mass Index 35.12 01/16/2021 11:27 AM EDT Plan of Treatment Health Maintenance Due Date Last Done Comments Depression Screening 1952 BMI Counseling 1958 Preventative Health Evaluation 1958 Shingrix-Zoster Vaccine (1 of 2) 1990 Fall Risk Assessment 2005 Osteoporosis Screening (DEXA Scan) 2005 DTap / Tdap / Td (1 - Tdap) 07/03/2010 07/02/2010, 0 07/02/2010 RSV Adult > 60+ Yrs or (1 - 1-dose 75+ series) 09/05/2015 COVID-19 Vaccine ( - season) 2024 08/26/2020, 08/04/2020 Influenza Vaccine (#1) 2024 2, 04/29/2020, 05/30/2019, Additional history exists Pneumococcal Vaccine Completed 08/16/2014, 07/23/19 09 Hepatitis B Vaccines Aged Out No long er eligible based on patient's age to complete this topic RSV Ped < 20 months Aged Out No longe r eligible based on patient's age to complete this topic Care Teams Hand Buffing Wheel Former Relationship Specialty Start Date End Date Jena Lewis MD [address] [place] [address] PCP - General Internal Medicine 12/07/17
== END 2024-08-30 11:56 | disposition home or self-care (01) ==
LOC: HO.HOS 11:17
PROVIDERS: PCP Internal Medicine; Visit Provider Orthopaedic Surgery
DX: M17.11 Unilateral primary osteoarthritis, right knee (principal)
CPT/HCPCS: 20610; 99213

== ENCOUNTER → 2024-08-30 11:16 | Outpatient (BNVA) | payer MEDICARE, SELFPAY | PROVIDERS: PCP Internal Medicine; Visit Provider Orthopaedic Surgery | DX: M17.11 Unilateral primary osteoarthritis, right knee (principal) | CPT/HCPCS: 20610; 99212; J1010; J2003 ==

== ENCOUNTER 2024-11-20 15:35 | Inpatient (IN) | payer MEDICARE, SELFPAY ==
[2024-11-20] VITALS (7 sets, daily range): BP systolic 93–142; BP diastolic 58–102; PULSE 93–135; RESP 16–18; TEMP 36.3–36.4; O2SAT 98–100; BMI 36.6; BMI 35.4
--- NOTE | 2024-11-20 15:50 | ECG_ITS ---
Test Reason : WEAKNESS Blood Pressure : */* mmHG Vent. Rate : 116 BPM Atrial Rate : * BPM P-R Int : * ms QRS Dur : 108 ms QT Int : 326 ms P-R-T Axes : * -38 38 degrees QTcB Int : 453 ms Atrial fibrillation with rapid ventricular response Left axis deviation Low voltage QRS Inferior infarct (cited on or before 29-Jun-2023) Abnormal ECG When compared with ECG of 29-Jun-2023 11:49, Atrial fibrillation has replaced Sinus rhythm Vent. rate has increased by 42 bpm Referred By: Aicha Flores Electronically Signed By: MARIANA GARAY
[2024-11-20 16:01] LABS: MANUAL DIFF FLAG NO
--- NOTE | 2024-11-20 16:02 | ED.GENADULT ---
HPI - General Adult General Chief complaint: Weakness Stated complaint: WEAK Time Seen by Provider: 11/20/24 16:02 Source: patient and family (patient's granddaughter) Mode of arrival: ambulatory Limitations: no limitations History of Present Illness ED Provider: Aicha Flores PA-C HPI narrative: Patient is an 84 year old assigned female at with a history of atrial fib on eliquis and metoprolol, CHF on lasix + entresto, and arthritis presenting to the emergency department today with weakness and concerns she is back in atrial fib [facility] RVR. Patient states that over the last few days she has felt generally unwell with weakness and feeling as though she is back in rapid atrial fib. Patient denies any dizziness, lightheadedness, abdominal pain, nausea, vomiting, fever, chills, blurry vision, double vision, loss of vision, chest pain, difficulty breathing, shortness of breath, back pain, night sweats, pain with urination, increased urinary frequency, increased urinary urgency, blood in her urine or stool, syncope or a near syncopal episode, recent trauma or falls, bowel incontinence, bladder incontinence, or any other complaints at this time. Onset (ago): day(s) (2) Relieving factors: none Exacerbating factors: none Associated symptoms: weakness Treatments prior to arrival: none Related Data Home Medications ?Medication ?Instructions ?Recorded ?Confirmed pravastatin 40 mg tablet 40 mg PO BEDTIME 02/11/21 11/20/24 apixaban 5 mg tablet (Eliquis) 5 mg PO BID 04/08/22 11/20/24 furosemide 20 mg tablet 40 mg PO BID 06/26/23 11/20/24 amiodarone 200 mg tablet 400 mg PO DAILY 11/20/24 11/20/24 oytjfgts-nywbwdr-whvv-lutein tablet 1 tab PO DAILY 11/20/24 11/20/24 sacubitril 97 mg-valsartan 103 mg 1 tab PO BID 11/20/24 11/20/24 tablet (Entresto) vitamins A,C,R-yrjo-hdfljl 2,148 2 tab PO DAILY 11/20/24 11/20/24 mcg-113 mg-45 mg-17.4 mg tablet (PreserVision AREDS) Previous Rx's ?Medication ?Instructions ?Recorded metoprolol tartrate 25 mg tablet 25 mg PO BID #60 tabs 06/29/23 Allergies Allergy/AdvReac Type Severity Reaction Status Date / Time No Known Allergies Allergy Verified 11/20/24 15:45 Review of Systems Constitutional: Constitutional: Reports no additional constitutional complaints, Denies chills, Denies fever(s), Denies night sweats and Reports weakness Eyes: Eyes: Reports no additional eye complaints, Denies blurry vision, Denies change in vision, Denies diplopia, Denies eye discharge, Denies loss of vision and Denies eye pain ENT: Denies dizziness Cardiovascular: Cardiovascular: Reports no additional cardiovascular complaints, Denies chest pain, Denies lightheadedness, Denies Loss of Consciousness and Denies dyspnea Respiratory: Respiratory: Reports no additional respiratory complaints and Denies dyspnea Gastrointestinal: Gastrointestinal: Reports no additional gastrointestinal complaints, Denies abdominal pain, Denies melena, Denies hematochezia, Denies change in bowel habits and Denies change in stool character Genitourinary: Genitourinary: Denies hematuria, Denies urinary frequency, Denies dysuria, Denies urinary incontinence, Denies urinary hesitancy and Denies urinary urgency Musculoskeletal: Musculoskeletal: Reports no additional musculoskeletal complaints, Denies numbness and Denies tingling Neurologic: Denies dizziness, Denies loss of vision, Denies numbness, Denies tingling and Reports weakness Psychiatric: Psychiatric: Reports no additional psychiatric complaints Endocrine: Endocrine: Reports no additional endocrine complaints Hematologic/Lymphatic: Hematologic/Lymphatic: Reports no additional hematologic/lymphatic complaints Allergic/Immunologic: Allergic/Immunologic: Reports no additional allergic/immunologic complaints [facility] Past Medical History Attestation statement: The following information was validated with the patient. Source: old records reviewed and nursing notes reviewed Medical History (Updated 11/20/24 @ 17:54 by RAINE Almanzar) Arthritis of right knee CHF (congestive heart failure) Tachycardia Afib Social History Social History Household Members: None Housing: House Do you presently have visiting nurse or other home services: No Alcohol intake: never Patient Tobacco Use Status: Never used Tobacco Smoked in Last 30 Days: No Use of substances other than those prescribed or required for medical reasons: No Advance Directives: No Advance Directives Information Provided: No Do you have a plan to hurt others: No Plan service: No Current occupational status: 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 Physical Exam ED Vital Signs: Vital Signs - 24 hr 11/20/24 15:43 11/20/24 16:05 11/20/24 16:38 Temperature 97.3 F 97.5 F Pulse Rate 124 H 135 H 115 H Respiratory Rate 18 18 18 Blood Pressure 142/80 H 142/102 H 107/58 L Pulse Oximetry 99 100 98 Oxygen Delivery Method Room Air Room Air Room Air BMI result Body Mass Index 36.6 Const General: cooperative, no acute distress, alert and awake Nutritional Appearance: well nourished Orientation/consciousness: patient oriented x3 HENMT Head: Yes normal to inspection and Yes atraumatic Ears: hearing grossly normal bilaterally and external ears normal General nose exam: Normal external nose present, no nasal discharge noted and no epistaxis Face and sinus: Yes normal facial exam, No abrasion and No laceration Mouth: Normal oral and palatal mucosa present, no drooling and no muffled voice Eyes General: appearance normal, both eyes and all related structures Periorbital: periorbital findings normal Eyelids: Yes eyelids normal Conjunctivae: conjunctivae normal Pupils: Equal, round and reactive pupils present EOM: EOMs intact bilaterally Neck Neck: Yes normal visual inspection, Yes full ROM and Yes no lymphadenopathy Resp Effort & Inspection: normal respiratory effort and able to speak in complete sentences Cardio Rate: tachycardic Rhythm: abnormal rhythm irregularly irregular Neuro General: patient oriented x3, moves all extremities and CN's II-XI intact bilaterally Cranial nerves: Yes Equal, round and reactive pupils present Cognition (Neuro): normal cognition Extrem General: Yes normal to inspection, Yes full ROM and Yes capillary refill normal Psych Appearance: grossly normal Mental Status: mental status grossly normal Affect: normal affect Attitude: cooperative Thought process: Normal thought process present Thought content: Normal thought content present Insight: Good insight present (Psych) Medications Administered Discontinued Medications Generic Name Dose Route Start Last Admin Trade Name Freq PRN Reason Stop Dose Admin Metoprolol Tartrate 5 mg 11/20/24 16:08 11/20/24 16:14 Metoprolol Tartrate 5 Mg/5 Ml Vial IVPUSH 11/20/24 16:09 5 mg ONCE ONE Administration Protocol Medical Decision Making Medical Decision Making MDM Narrative: Patient is an 84 year old assigned female at with a history of atrial fib on eliquis and metoprolol, CHF on lasix + entresto, and arthritis presenting to the emergency department today with weakness and concerns she is back in atrial fib wth RVR. Patient's physical exam showed an individual in atrial fib with RVR. Patient's blood work was unremarkable. Patient's urine showed no acute process. Patient's EKG confirmed atrial fib with RVR. I explained my physical exam findings as well as all test results to the patient and the patient's granddaughter. I answered all questions asked by the patient and the patient's granddaughter. Patient received 5mg of IV lopressor which lowered her heart rate down to approximately 115bpm from 130 however, the patient's blood pressure did become lower in the low 100 systolic. Given the patient will need continued rate management while maintaining her blood pressure, I recommended hospital admission. I spoke with the hospitalist team who agreed to admission. Patient and the patient's granddaughter verbalized agreement and understanding with this treatment plan and admission. Differential Diagnosis Differential Diagnoses: The differential diagnosis associated with the presentation includes Atrial fib with RVR Weakness Admission/Observation Consideration of admission/observation: Escalation of care including admission/observation considered Patient admitted as noted in the MDM Rationale portion of this note. Consult Healthcare Provider Management of the patient was discussed with: Hospitalist (agreed to admission as noted in the MDM Rationale portion of this note. ) Lab Data [facility] Lab Attestation statement: I reviewed the patient's lab results. My interpretation of these results are in the MDM Rationale portion of this note. 11/20/24 15:56 11/20/24 15:56 Labs: Lab Results 11/20/24 11/20/24 Range/Units 15:56 16:17 WBC 5.5 (4.8-10.8) X10*3/uL RBC 3.58 L (4.20-5.50) X10*6/uL Hgb 11.3 L (12.0-16.0) g/dl Hct 33.0 L (37.0-47.0) % MCV 92.2 (80.0-98.0) fL MCH 31.6 (27.0-33.0) pg MCHC 34.2 (31.0-35.0) g/dl RDW 12.8 (11.0-16.0) % Plt Count 210 D (160-400) X10*3/uL MPV 9.1 L (9.4-12.3) fL Immature Gran % (Auto) 0.2 (0.0-0.4) % Neut % (Auto) 68.6 (45-73) % Lymph % (Auto) 22.1 (20-40) % [place] % (Auto) 9.1 (2-11) % Eos % (Auto) 0.0 (0-4) % Baso % (Auto) 0.0 (0-2) % Lymph # (Auto) 1.2 (1.2-4.9) X10*3/uL [place] # (Auto) 0.5 (0.1-1.2) X10*3/uL Eos # (Auto) 0.0 (0.0-0.4) X10*3/uL Baso # (Auto) 0.0 (0.0-0.2) X10*3/uL Abs Immat Gran (auto) 0.01 (0.00-0.03) X10*3/uL Absolute Neuts (auto) 3.8 (2.0-8.3) x10*3/uL Absolute Nucleated RBC 0.000 (0.0-0.012) X10*3/uL Nucleated RBC % (auto) 0.0 (0.0-0.2) /100WBC PT 16.3 H (10.9-12.4) SEC INR 1.4 H (0.9-1.1) Sodium 142 (135-145) mmol/L Potassium 4.3 (3.3-5.1) mmol/L Chloride 103 (96-108) mmol/L Carbon Dioxide 28 (22-29) mmol/L Anion Gap 15 (12-20) BUN 29 H (9-16) mg/dL Creatinine 1.23 (0.5-1.4) mg/dL Estim Creat Clear Calc 34.3 Estimated GFR 42 Random Glucose 128 H (60-115) mg/dL Calcium 9.3 (8.4-10.2) mg/dL Magnesium 2.1 (1.6-2.6) mg/dL Total Bilirubin 0.5 (0.0-1.0) mg/dL AST 22 (5-31) U/L ALT 16 (0-31) U/L Alkaline Phosphatase 78 (39-117) U/L Troponin I High Sens 6.5 D (<3.5-17.0) ng/L B-Natriuretic Peptide 340 H (<100) pg/mL Total Protein 6.4 L (6.5-8.0) g/dL Albumin 4.0 (3.5-5.0) g/dL Urine Color Yellow Urine Appearance Clear Urine pH 7.5 (5.0-9.0) Ur Specific [place] 1.015 (1.005-1.025) Urine Protein 30 (1+) H (Neg-Trace) mg/dL Urine Glucose (UA) Negative (Negative) mg/dL Urine Ketones Negative (Negative) mg/dL Urine Blood Negative (Negative) Urine Nitrite Negative (Negative) Ur Leukocyte Esterase Trace H (Negative) Urine RBC 0-2 (0-2) /HPF Urine WBC 0-5 (0-5) /HPF Ur Squamous Epith Cells 3-5 (0-2) /HPF Urine Bacteria None Seen (None Seen) Hyaline Casts 0-2 (0-2) /LPF Influenza Type A (PCR) NEGATIVE (Negative) Influenza Type B (PCR) NEGATIVE (Negative) RSV RNA Qual (PCR) NEGATIVE (Negative) SARS-CoV-2 RNA (RT-PCR) NEGATIVE (Negative) Independent Interpretation I performed an independent interpretation of an: EKG Interpretation: I independently interpreted this EKG and am in agreement with the below findings: Vent. Rate: 116 BPM Atrial Rate: * BPM P-R Int: * ms QRS Dur: 108 ms QT Int: 326 ms P-R-T Axes: * -38 38 degrees QTcB Int: 453 ms Atrial fibrillation with rapid ventricular response Left axis deviation Low voltage QRS Inferior infarct (cited on or before 29-Jun-2023) Abnormal ECG When compared with ECG of 29-Jun-2023 11:49, Atrial fibrillation has replaced Sinus rhythm Vent. rate has increased by 42 bpm Nonspecific T wave abnormality no longer evident in Anterolateral leads DD/ 1558 Radiology Impression Discussion of test interpretation with radiology: I have reviewed the radiologist's reading. Independent Historian Clinical information obtained from an independent historian. History obtained from or confirmed by: Other (Patient's granddaughter provided additional history and confirmed the history provided by the patient.) Critical Care Time Critical Care Time Critical Care Time: Yes Total Critical Care Time: 32 Attestation: I spent 32 minutes of Critical Care Time with this patient. This does not include time spent on separately reported billable procedures. Discharge Plan Discharge Clinical Impression: Atrial fibrillation with RVR Patient Disposition: Admitted As Inpatient Interventions: Admission Worksheet (ED) Last Done: 11/20/24 17:29
[2024-11-20 16:04] LABS: Hemoglobin 11.3 g/dl (12.0-16.0); Imm Gran Abs Auto 0.01 X10*3/uL (0.00-0.03); Imm Gran Pct Auto 0.2 % (0.0-0.4); Lymphocytes Absolute Auto 1.2 X10*3/uL (1.2-4.9); Lymphocytes Percent Auto 22.1 % (20-40); Mean Corpuscular HGB Conc 34.2 g/dl (31.0-35.0); Mean Corpuscular Hemoglobin 31.6 pg (27.0-33.0); Mean Corpuscular Volume 92.2 fL (80.0-98.0); Mean Platelet Volume 9.1 fL (9.4-12.3); Monocytes Absolute Auto 0.5 X10*3/uL (0.1-1.2); Monocytes Percent Auto 9.1 % (2-11); Neutrophils Absolute Auto 3.8 x10*3/uL (2.0-8.3); Neutrophils Percent Auto 68.6 % (45-73); Platelet Count 210 X10*3/uL (160-400); Red Blood Count 3.58 X10*6/uL (4.20-5.50); Red Cell Distribution Width 12.8 % (11.0-16.0); White Blood Count 5.5 X10*3/uL (4.8-10.8)
[2024-11-20 16:09] LABS: INTERNATIONAL NORM RATIO 1.4 (0.9-1.1); Prothrombin Time 16.3 SEC (10.9-12.4)
--- NOTE | 2024-11-20 16:09 | PC.NURSE ---
Patient presents to ED c/o weakness and Feeling off since tuesday. PAtient denies pain/sob/palpatation. EMS EKG displayed afib RVR. Patient reports being compliant with medications. 20G in RAC and 18G in LAC. Patient changed over and on the rn cardiac rehab tachy @ 118 HR. Provider in to see patient. Plan of care on going
[2024-11-20] MEDS: Metoprolol Tartrate 5 MG/5 ML VIAL IVPUSH (16:14)
[2024-11-20 16:17] LABS: Anion Gap 15 (12-20)
[2024-11-20 16:22] LABS: Alanine Aminotransferase 16 U/L (0-31); Aspartate Amino Transferase 22 U/L (5-31); Bilirubin Total 0.5 mg/dL (0.0-1.0); Blood Urea Nitrogen 29 mg/dL (9-16); Calcium 9.3 mg/dL (8.4-10.2); Carbon Dioxide 28 mmol/L (22-29); Chloride 103 mmol/L (96-108); Creatinine Clr Calc Pharmacy 34.3; Estimated Glomerular Filt Rate 42; Glucose Random 128 mg/dL (60-115); Magnesium 2.1 mg/dL (1.6-2.6); Potassium 4.3 mmol/L (3.3-5.1); Sodium 142 mmol/L (135-145); Total Protein 6.4 g/dL (6.5-8.0)
--- NOTE | 2024-11-20 16:23 | PC.NURSE ---
Patient passed nursing swallow eval, urine collected/sent to lab
[2024-11-20 16:25] LABS: Appearance Urine Clear; Color Urine Yellow; Glucose Urine UA Negative (Negative); Leukocyte Esterase Urine Trace (Negative); Nitrite Urine Negative (Negative); PH 7.5 (5.0-9.0); Specific Gravity - Urine 1.015 (1.005-1.025); UMIC TRIGGER UACC YES; Urine Blood Negative (Negative); Urine Ketones Negative (Negative); Urine Protein 30 (1+) mg/dL (Neg-Trace)
[2024-11-20 16:27] LABS: Alkaline Phosphatase 78 U/L (39-117); Troponin-I High Sensitivity 6.5 ng/L (<3.5-17.0)
[2024-11-20 16:37] LABS: Influenza A PCR NEGATIVE (Negative); Influenza B PCR NEGATIVE (Negative); Resp Syncy Virus RNA Qual PCR NEGATIVE (Negative); SARS COV2 PCR INHOUSE NEGATIVE (Negative)
[2024-11-20 16:53] LABS: Bacteria Urine None Seen (None Seen); Hyaline Casts Urine 0-2 /LPF (0-2); RBC Urine 0-2 /HPF (0-2); WBC Urine 0-5 /HPF (0-5)
[2024-11-20 16:56] LABS: B Type Natriuretic Peptide 340 pg/mL (<100)
--- NOTE | 2024-11-20 17:05 | PM.IMHP ---
History of Present Illness Date of Service: 11/20/24 Chief Complaint: shoulders feeling heavy 84/F with unspecified CHF, h/o permanent AF on eliquis, metoprolol and amiodarone; HLD here with generalized unwell, heavyness in the shoulders and feeling week and feeling off and having palpiations; the symptoms have been ongoing for the last 2 days, and reminescanent of past episodees of afib with RVR. She is noted to be in AFIB with RVR, HR toping 135 and received IV metoprolol in the ED. She denies palpitations, sob or chest rell. HR remains variable from < 100 to 120s Review of Systems Review of Systems: Gen: no fever, feels week Resp: no sob, no cough CV: no chest, no [place], no leg edema, no palpiration GI: No n/v, no abd pain Neuro: No confusion Yes all other systems are reviewed and are negative FORMERLY [facility], [facility]1983 Medical History (Updated 11/20/24 @ 17:54 by RAINE Almanzar) Arthritis of right knee CHF (congestive heart failure) Tachycardia Afib Social History Household Members: Family Housing: House Do you presently have visiting nurse or other home services: No Alcohol intake: never Patient Tobacco Use Status: Never used Tobacco Smoked in Last 30 Days: No Use of substances other than those prescribed or required for medical reasons: No Have you been hit, kicked, punched, or otherwise hurt by someone within the past year? 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 Meds Allergies Allergy/AdvReac Type Severity Reaction Status Date / Time No Known Allergies Allergy Verified 11/20/24 15:45 Home Medications ?Medication ?Instructions ?Recorded ?Confirmed ?Last Taken ?Type pravastatin 40 mg tablet 40 mg PO BEDTIME 02/11/21 11/20/24 11/19/24 History apixaban 5 mg tablet (Eliquis) 5 mg PO BID 04/08/22 11/20/24 11/20/24 History furosemide 20 mg tablet 40 mg PO BID 06/26/23 11/20/24 11/20/24 History amiodarone 200 mg tablet 200 mg PO DAILY 11/20/24 11/20/24 11/20/24 History kjzxungp-vosmbbh-sdum-lutein tablet 1 tab PO DAILY 11/20/24 11/20/24 11/20/24 History sacubitril 97 mg-valsartan 103 mg 1 tab PO BID 11/20/24 11/20/24 11/20/24 History tablet (Entresto) vitamins A,C,U-aueq-eplmpo 2,148 2 tab PO DAILY 11/20/24 11/20/24 11/20/24 History mcg-113 mg-45 mg-17.4 mg tablet (PreserVision AREDS) Physical Exam Vital Signs and Narrative: Vital Signs: Last Vital Signs Temp 97.5 F 11/20/24 16:38 Pulse 115 H 11/20/24 16:38 Resp 18 11/20/24 16:38 BP 107/58 L 11/20/24 16:38 Pulse Ox 98 11/20/24 16:38 O2 Del Method Room Air 11/20/24 16:38 BMI result Body Mass Index 36.6 Const: Other: General: AO X 3, no acute distress Resp: CTA bilateral CVS: S1,S2, iregular iregular GI: +BS, NT, no distention Skin: No rash Neuro: motor grossly intact Psych: appropriate affect Results Labs 11/20/24 15:56 11/20/24 15:56 Labs: Laboratory Results - last 24 hr 11/20/24 11/20/24 15:56 16:17 MCV 92.2 MCH 31.6 MCHC 34.2 RDW 12.8 Plt Count 210 D MPV 9.1 L Immature Gran % (Auto) 0.2 Neut % (Auto) 68.6 Lymph % (Auto) 22.1 [place] % (Auto) 9.1 Eos % (Auto) 0.0 Baso % (Auto) 0.0 Lymph # (Auto) 1.2 [place] # (Auto) 0.5 Eos # (Auto) 0.0 Baso # (Auto) 0.0 Abs Immat Gran (auto) 0.01 Absolute Neuts (auto) 3.8 Absolute Nucleated RBC 0.000 Nucleated RBC % (auto) 0.0 PT 16.3 H INR 1.4 H Anion Gap 15 Estim Creat Clear Calc 34.3 Estimated GFR 42 Random Glucose 128 H Calcium 9.3 Magnesium 2.1 Total Bilirubin 0.5 AST 22 ALT 16 Alkaline Phosphatase 78 Troponin I High Sens 6.5 D B-Natriuretic Peptide 340 H Total Protein 6.4 L Albumin 4.0 Urine Color Yellow Urine Appearance Clear Urine pH 7.5 Ur Specific [place] 1.015 Urine Protein 30 (1+) H Urine Glucose (UA) Negative Urine Ketones Negative Urine Blood Negative Urine Nitrite Negative Ur Leukocyte Esterase Trace H Urine RBC 0-2 Urine WBC 0-5 Ur Squamous Epith Cells 3-5 Urine Bacteria None Seen Hyaline Casts 0-2 Influenza Type A (PCR) NEGATIVE Influenza Type B (PCR) NEGATIVE RSV RNA Qual (PCR) NEGATIVE SARS-CoV-2 RNA (RT-PCR) NEGATIVE Assessment and Plan (1) Atrial fibrillation with rapid ventricular response: Status: Acute Plan 84/F with unspecified CHF, AF on eliquis, amio and metoprolol; HLD here with weakness, palpiation and found to be in AFIB with RVR, +mild heart failure Permanent AFib with RVR on amio, metoprolol at home. continue metoprolol at 25, Q6 hrs, hold amio for now continue eliquis cardiology consulation to help with med adjustment consider dig if rate not controlled with current plan NPO after midnight in case need for cardioversion Mild acute on chronic HFrEF, exacerbated by AF w/ RVR IV Lasix when bp better continue Entresto track i/o, daily weight, low salt diet. HLD--statin DVT Prophylaxis: Eliquis Full code admission for at least 2 midnights for management of AFIB with RVR, Heart failure Quality Stroke Does the patient have a stroke diagnosis?: No VTE Prior VTE?: No VTE Risk Level:: Medical - moderate - high VTE Device Contraindication: Treatment Not Indicated VTE Drug Contraindication: N/A - Med Ordered
--- OUTSIDE RECORDS SUMMARY | 2024-11-20 17:16 | XMS_ITS | Clinical Summary ---
Author Organization [facility] Address [address] [place] [address] Care Team Providers Care Intensive Care Ambulance Paramedic Name Role Phone Jena Lewis MD Primary [...] 1-dose 75+ series) 09/05/2015 COVID-19 Vaccine ( season) 2024 08/26/2020, 08/04/2020 Influenza Vaccine (Season Ended) 2025 05/18/2022, 04/29/2020, 05/30/2019, Additional history exists Pneumococcal Vaccine Completed 08/16/2014, 07/23/19 09 Hepatitis B Vaccines Aged Out No long er eligible based on patient's age to complete this topic RSV Ped < 20 months Aged Out No longe r eligible based on patient's age to complete this topic Care Teams Intensive Care Ambulance Paramedic Relationship Specialty Start Date End Date Jena Lewis MD [address] [place] [address] PCP - General Internal Medicine 12/07/17
--- NOTE | 2024-11-20 17:47 | PHA.MEDREC ---
Addendum entered by Edenilson [facility] 11/20/24 17:55: med rec reviewed Original Note: Pharmacy Consult ? Medication Reconciliation Pharmacy has completed the medication reconciliation. Spoke with pt and she was able to confirm her medications.
[2024-11-20] MEDS: Metoprolol Tartrate 25 MG TABLET PO (20:13)
[2024-11-20] MEDS: Apixaban 5 MG TABLET PO (20:13)
--- NOTE | 2024-11-20 20:15 | PC.NURSE ---
medicated per aug, notified BARTOLO dodd
[2024-11-20] MEDS: Pravastatin Sodium 40 MG TABLET PO (22:31)
[2024-11-20] MEDS: Sacubitril/Valsartan 97/103 1 TAB TABLET PO (22:31)
[2024-11-20] MEDS: 0.9 % Sodium Chloride Flush 3 ML SYRINGE IVFLUSH (22:32)
[2024-11-21] VITALS (11 sets, daily range): BP systolic 101–157; BP diastolic 50–90; PULSE 54–105; RESP 16–18; TEMP 36.1–37.4; O2SAT 97–99
[2024-11-21 07:07] LABS: MANUAL DIFF FLAG NO
[2024-11-21 07:18] LABS: Basophils Percent Auto 0.2 % (0-2); Hematocrit 33.7 % (37.0-47.0); Hemoglobin 11.2 g/dl (12.0-16.0); Imm Gran Abs Auto 0.01 X10*3/uL (0.00-0.03); Imm Gran Pct Auto 0.2 % (0.0-0.4); Lymphocytes Absolute Auto 1.4 X10*3/uL (1.2-4.9); Lymphocytes Percent Auto 27.1 % (20-40); Mean Corpuscular HGB Conc 33.2 g/dl (31.0-35.0); Mean Corpuscular Hemoglobin 31.4 pg (27.0-33.0); Mean Corpuscular Volume 94.4 fL (80.0-98.0); Mean Platelet Volume 9.6 fL (9.4-12.3); Monocytes Absolute Auto 0.5 X10*3/uL (0.1-1.2); Monocytes Percent Auto 9.9 % (2-11); Neutrophils Absolute Auto 3.3 x10*3/uL (2.0-8.3); Neutrophils Percent Auto 62.6 % (45-73); Platelet Count 225 X10*3/uL (160-400); Red Blood Count 3.57 X10*6/uL (4.20-5.50); Red Cell Distribution Width 12.8 % (11.0-16.0); White Blood Count 5.3 X10*3/uL (4.8-10.8)
[2024-11-21 07:33] LABS: Alanine Aminotransferase 14 U/L (0-31); Albumin Level 3.7 g/dL (3.5-5.0); Alkaline Phosphatase 72 U/L (39-117); Anion Gap 11 (12-20); Aspartate Amino Transferase 20 U/L (5-31); Bilirubin Total 0.6 mg/dL (0.0-1.0); Blood Urea Nitrogen 28 mg/dL (9-16); Calcium 8.8 mg/dL (8.4-10.2); Carbon Dioxide 30 mmol/L (22-29); Chloride 107 mmol/L (96-108); Creatinine Clr Calc Pharmacy 34.5; Estimated Glomerular Filt Rate 43; Glucose Random 92 mg/dL (60-115); Sodium 144 mmol/L (135-145); Total Protein 5.9 g/dL (6.5-8.0)
--- NOTE | 2024-11-21 08:06 | HO.PM.IMPN ---
Subjective Subjective Date of Service: 11/21/24 Interval History: f/u on afib with rvr. Remain in AFIB with RVR no sob, n chest pain Physical Exam Vital Signs: Vital Signs: Last Vital Signs Temp 97.0 F 11/21/24 07:29 Pulse 105 H 11/21/24 07:29 Resp 18 11/21/24 07:29 BP 144/72 H 11/21/24 07:29 Pulse Ox 98 11/21/24 07:29 O2 Del Method Room Air 11/21/24 07:29 BMI result Body Mass Index 35.4 Const: Other: General: AO X 3, no acute distress Resp: CTA bilateral CVS: S1,S2, iregular iregular GI: +BS, NT, no distention Skin: No rash Neuro: motor grossly intact Psych: appropriate affect Objective Data Active Medications Acetaminophen (Acetaminophen 325 Mg Tablet) 650 mg PO Q6H PRN PRN Reason: Pain, Mild 1-3,fever,headache Al Hydroxide/Mg Hydroxide (Magnesium Hydrox/Alum Hydrox 30 Ml Oral.Susp) 30 ml PO Q4H PRN PRN Reason: Heartburn Apixaban (Apixaban 5 Mg Tablet) 5 mg PO BID [facility] Last Admin: 11/20/24 20:13 Dose: 5 mg Documented By: TRENT Calcium Carbonate (Calcium Carbonate 750 Mg Tab.Chew) 750 mg PO Q4H PRN PRN Reason: Heartburn Magnesium Hydroxide (Milk Of Magnesia 30 Ml Oral.Susp) 30 ml PO DAILY PRN PRN Reason: Constipation Melatonin (Melatonin 3 Mg Tablet) 6 mg PO BEDTIME PRN PRN Reason: Insomnia Metoprolol Tartrate (Metoprolol Tartrate 25 Mg Tablet) 25 mg PO QID [facility]; Protocol Last Admin: 11/20/24 20:13 Dose: 25 mg Documented By: TRENT Ondansetron HCl (Ondansetron Hcl 4 Mg/2 Ml Vial) 4 mg IVPUSH Q8H PRN PRN Reason: Nausea and Vomiting Polyethylene Glycol (Polyethylene Glycol 3350 17 Gm Powd.Pack) 17 gm PO DAILY PRN PRN Reason: Constipation Pravastatin Sodium (Pravastatin Sodium 40 Mg Tablet) 40 mg PO BEDTIME [facility] Last Admin: 11/20/24 22:31 Dose: 40 mg Documented By: DEMETRI Sacubitril/Valsartan (Sacubitril/Valsartan 97/103 1 Tab Tablet) 1 tab PO BID [facility]; Protocol Last Admin: 11/20/24 22:31 Dose: 1 tab Documented By: DEMETRI Sodium Chloride (0.9 % Sodium Chloride Flush 3 Ml Syringe) 3 ml IVFLUSH QSHIFT [facility] Last Admin: 11/20/24 22:32 Dose: 3 ml Documented By: DEMETRI Labs 11/21/24 06:39 11/21/24 06:39 Labs: Laboratory Results - last 24 hr 11/20/24 11/20/24 11/21/24 15:56 16:17 06:39 MCV 92.2 94.4 MCH 31.6 31.4 MCHC 34.2 33.2 RDW 12.8 12.8 Plt Count 210 D 225 MPV 9.1 L 9.6 Immature Gran % (Auto) 0.2 0.2 Neut % (Auto) 68.6 62.6 Lymph % (Auto) 22.1 27.1 [place] % (Auto) 9.1 9.9 Eos % (Auto) 0.0 0.0 Baso % (Auto) 0.0 0.2 Lymph # (Auto) 1.2 1.4 [place] # (Auto) 0.5 0.5 Eos # (Auto) 0.0 0.0 Baso # (Auto) 0.0 0.0 Abs Immat Gran (auto) 0.01 0.01 Absolute Neuts (auto) 3.8 3.3 Absolute Nucleated RBC 0.000 0.000 Nucleated RBC % (auto) 0.0 0.0 PT 16.3 H INR 1.4 H Anion Gap 15 11 L Estim Creat Clear Calc 34.3 34.5 Estimated GFR 42 43 Random Glucose 128 H 92 Calcium 9.3 8.8 Magnesium 2.1 Total Bilirubin 0.5 0.6 AST 22 20 ALT 16 14 Alkaline Phosphatase 78 72 Troponin I High Sens 6.5 D B-Natriuretic Peptide 340 H Total Protein 6.4 L 5.9 L Albumin 4.0 3.7 Urine Color Yellow Urine Appearance Clear Urine pH 7.5 Ur Specific [place] 1.015 Urine Protein 30 (1+) H Urine Glucose (UA) Negative Urine Ketones Negative Urine Blood Negative Urine Nitrite Negative Ur Leukocyte Esterase Trace H Urine RBC 0-2 Urine WBC 0-5 Ur Squamous Epith Cells 3-5 Urine Bacteria None Seen Hyaline Casts 0-2 Influenza Type A (PCR) NEGATIVE Influenza Type B (PCR) NEGATIVE RSV RNA Qual (PCR) NEGATIVE SARS-CoV-2 RNA (RT-PCR) NEGATIVE Assessment and Plan (1) Atrial fibrillation with rapid ventricular response: Status: Acute (2) CHF (congestive heart failure): Status: Acute Plan 84/F with unspecified CHF, AF on eliquis, amio and metoprolol; HLD here with weakness, palpiation and found to be in AFIB with RVR, +mild heart failure Permanent AFib with symptomatic RVR on amio, metoprolol at home. continue metoprolol at 25 Q6 hrs, continue amio 200/daily continue [facility] cardiology consulation to help with med adjustment consider dig if rate not controlled with current plan for cardioversion today Mild acute on chronic HFrEF, exacerbated by AF w/ RVR presently euvolemic continue Entresto track i/o, daily weight, low salt diet. HLD--statin DVT Prophylaxis: [facility] Full code admission for at least 2 midnights for management of AFIB with RVR, Heart failure Quality Stroke Does the patient have a stroke diagnosis?: No VTE Prior VTE?: No VTE Risk Level:: Medical - moderate - high VTE Device Contraindication: Treatment Not Indicated VTE Drug Contraindication: N/A - Med Ordered
--- NOTE | 2024-11-21 08:15 | MHC.CM.PN ---
CM met with Patient at bedside and addressed IMM with her, providing Patient with the original and a copy has been placed on the chart. Patient lives alone in a house and she uses a cane to assist with mobility. Home/self care is Patient's goal and CM has initiated and will follow for dc planning. PCP is Dr. Seth Khan and Granddaughter/HCP/Manju or Son will transport to home.
[2024-11-21] MEDS: Apixaban 5 MG TABLET PO ×2 (09:12→20:24)
[2024-11-21] MEDS: Metoprolol Tartrate 25 MG TABLET PO ×2 (09:12→20:24)
[2024-11-21] MEDS: Sacubitril/Valsartan 97/103 1 TAB TABLET PO ×2 (09:12→20:24)
[2024-11-21] MEDS: 0.9 % Sodium Chloride Flush 3 ML SYRINGE IVFLUSH ×3 (09:13→20:24)
--- NOTE | 2024-11-21 09:17 | P.CONCA_ITS ---
History of Present Illness History of Present Illness Date of Service: 11/21/24 Chief complaint: Afib w/RvR Narrative: This is a cardiology consultation regarding atrial fibrillation. It seems that she has a history of paroxysmal atrial fibrillation and also some cardiomyopathy. She is followed up at [facility]. In June of 2023, she underwent cardioversion. She has been put on amiodarone. It seems that she has been doing well for more than a year. For the last 3-4 days, she has been having palpitations and did not feel good and she also felt as if there is some weight on the shoulders. No chest discomfort. Following this, she was seen in the emergency room and found to have atrial fibrillation with rapid rate. She had received IV metoprolol in the emergency room. Currently, she states she is still feeling some palpitations. However, not in any acute distress. Review of Systems 2 Review of Systems: Yes all other systems are reviewed and are negative Constitutional: Constitutional: Reports as per HPI and Reports no additional constitutional complaints Eyes: Eyes: Reports as per HPI and Denies no additional eye complaints ENT: Denies system reviewed and no additional complaints, except as documented and Reports as per HPI Cardiovascular: Cardiovascular: Reports as per HPI, Reports no additional cardiovascular complaints, Denies acrocyanosis, Denies cool extremities, Denies chest pain, Denies leg edema, Denies lightheadedness, Reports palpitations and Denies dyspnea Respiratory: Respiratory: Reports as per HPI, Denies no additional respiratory complaints and Denies dyspnea Gastrointestinal: Gastrointestinal: Reports as per HPI and Denies no additional gastrointestinal complaints Genitourinary: Genitourinary: Reports as per HPI Musculoskeletal: Musculoskeletal: Reports no additional musculoskeletal complaints and Reports as per HPI Integumentary/Breasts: Skin/Breast: Reports system reviewed and no additional complaints, except as docu Neurologic: Reports system reviewed and no additional complaints, except as documented and Reports as per HPI Psychiatric: Psychiatric: Reports no additional psychiatric complaints and Reports as per HPI Endocrine: Endocrine: Reports no additional endocrine complaints, Reports as per HPI and Reports palpitations Hematologic/Lymphatic: Hematologic/Lymphatic: Reports no additional hematologic/lymphatic complaints and Reports as per HPI Allergic/Immunologic: Allergic/Immunologic: Reports no additional allergic/immunologic complaints and Reports as per HPI [facility] Past Medical History Medical History (Updated 11/21/24 @ 09:20 by Tod Barbour MD) Arthritis of right knee CHF (congestive heart failure) Tachycardia Afib Family History Pertinent family history: No pertinent family history Social History Social History Household Members: Family Housing: House Do you presently have visiting nurse or other home services: No Alcohol intake: never Patient Tobacco Use Status: Never used Tobacco Smoked in Last 30 Days: No Use of substances other than those prescribed or required for medical reasons: No Have you been hit, kicked, punched, or otherwise hurt by someone within the past year? 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 Meds Allergies Allergy/AdvReac Type Severity Reaction Status Date / Time No Known Allergies Allergy Verified 11/20/24 15:45 Active Medications: Current Medications Acetaminophen (Acetaminophen 325 Mg Tablet) 650 mg PO Q6H PRN PRN Reason: Pain, Mild 1-3,fever,headache Al Hydroxide/Mg Hydroxide (Magnesium Hydrox/Alum Hydrox 30 Ml Oral.Susp) 30 ml PO Q4H PRN PRN Reason: Heartburn Apixaban (Apixaban 5 Mg Tablet) 5 mg PO BID [facility] Last Admin: 11/21/24 09:12 Dose: 5 mg Calcium Carbonate (Calcium Carbonate 750 Mg Tab.Chew) 750 mg PO Q4H PRN PRN Reason: Heartburn Magnesium Hydroxide (Milk Of Magnesia 30 Ml Oral.Susp) 30 ml PO DAILY PRN PRN Reason: Constipation Melatonin (Melatonin 3 Mg Tablet) 6 mg PO BEDTIME PRN PRN Reason: Insomnia Metoprolol Tartrate (Metoprolol Tartrate 25 Mg Tablet) 25 mg PO QID [facility]; Protocol Last Admin: 11/21/24 09:12 Dose: 25 mg Ondansetron HCl (Ondansetron Hcl 4 Mg/2 Ml Vial) 4 mg IVPUSH Q8H PRN PRN Reason: Nausea and Vomiting Polyethylene Glycol (Polyethylene Glycol 3350 17 Gm Powd.Pack) 17 gm PO DAILY PRN PRN Reason: Constipation Pravastatin Sodium (Pravastatin Sodium 40 Mg Tablet) 40 mg PO BEDTIME [facility] Last Admin: 11/20/24 22:31 Dose: 40 mg Sacubitril/Valsartan (Sacubitril/Valsartan 97/103 1 Tab Tablet) 1 tab PO BID [facility]; Protocol Last Admin: 11/21/24 09:12 Dose: 1 tab Sodium Chloride (0.9 % Sodium Chloride Flush 3 Ml Syringe) 3 ml IVFLUSH QSHIFT [facility] Last Admin: 11/21/24 09:13 Dose: 3 ml Home Medications ?Medication ?Instructions ?Recorded ?Confirmed ?Last Taken ?Type pravastatin 40 mg tablet 40 mg PO BEDTIME 02/11/21 11/20/24 11/19/24 History apixaban 5 mg tablet (Eliquis) 5 mg PO BID 04/08/22 11/20/24 11/20/24 History furosemide 20 mg tablet 40 mg PO BID 06/26/23 11/20/24 11/20/24 History amiodarone 200 mg tablet 200 mg PO DAILY 11/20/24 11/20/24 11/20/24 History pyjhdodk-etzqsxz-qpph-lutein tablet 1 tab PO DAILY 11/20/24 11/20/24 11/20/24 History sacubitril 97 mg-valsartan 103 mg 1 tab PO BID 11/20/24 11/20/24 11/20/24 History tablet (Entresto) vitamins A,C,U-pzjf-wezkbg 2,148 2 tab PO DAILY 11/20/24 11/20/24 11/20/24 History mcg-113 mg-45 mg-17.4 mg tablet (PreserVision AREDS) Physical Exam 2 Vital Signs: Vital Signs: Last Vital Signs Temp 97.0 F 11/21/24 07:29 Pulse 98 11/21/24 09:12 Resp 18 11/21/24 07:29 BP 146/90 H 11/21/24 09:12 Pulse Ox 98 11/21/24 07:29 O2 Del Method Room Air 11/21/24 07:29 BMI result Body Mass Index 35.4 Const: General: comfortable and no acute distress O rientation/consciousness: patient oriented x3 HEENT: Other: Unremarkable Head: Yes normal to inspection Neck: Neck: Yes normal visual inspection Chest: Chest palpation & inspection: normal inspection of the chest Resp: Auscultation: clear to auscultation bilaterally Cardio: Palpation: normal PMI Heart sounds: S1 normal heart sound present, S2 normal heart sound present, no gallops, no murmurs and no rubs GI: Palpation (GI): Soft to palpation Back/Spine/Pelvis: Other: unremarkable Skin: General skin exam: no rashes or lesions noted Neuro: General: patient oriented x3 Extrem: General: Yes normal to inspection Psych: Mental Status: mental status grossly normal Objective Labs and Meds 11/21/24 06:39 11/21/24 06:39 Lab results: Laboratory Results - last 24 hr 11/20/24 11/20/24 11/21/24 15:56 16:17 06:39 WBC 5.5 5.3 RBC 3.58 L 3.57 L Hgb 11.3 L 11.2 L Hct 33.0 L 33.7 L MCV 92.2 94.4 MCH 31.6 31.4 MCHC 34.2 33.2 RDW 12.8 12.8 Plt Count 210 D 225 MPV 9.1 L 9.6 Immature Gran % (Auto) 0.2 0.2 Neut % (Auto) 68.6 62.6 Lymph % (Auto) 22.1 27.1 [place] % (Auto) 9.1 9.9 Eos % (Auto) 0.0 0.0 Baso % (Auto) 0.0 0.2 Lymph # (Auto) 1.2 1.4 [place] # (Auto) 0.5 0.5 Eos # (Auto) 0.0 0.0 Baso # (Auto) 0.0 0.0 Abs Immat Gran (auto) 0.01 0.01 Absolute Neuts (auto) 3.8 3.3 Absolute Nucleated RBC 0.000 0.000 Nucleated RBC % (auto) 0.0 0.0 PT 16.3 H INR 1.4 H Sodium 142 144 Potassium 4.3 4.0 Chloride 103 107 Carbon Dioxide 28 30 H Anion Gap 15 11 L BUN 29 H 28 H Creatinine 1.23 1.20 Estim Creat Clear Calc 34.3 34.5 Estimated GFR 42 43 Random Glucose 128 H 92 Calcium 9.3 8.8 Magnesium 2.1 Total Bilirubin 0.5 0.6 AST 22 20 ALT 16 14 Alkaline Phosphatase 78 72 Troponin I High Sens 6.5 D B-Natriuretic Peptide 340 H Total Protein 6.4 L 5.9 L Albumin 4.0 3.7 Urine Color Yellow Urine Appearance Clear Urine pH 7.5 Ur Specific [place] 1.015 Urine Protein 30 (1+) H Urine Glucose (UA) Negative Urine Ketones Negative Urine Blood Negative Urine Nitrite Negative Ur Leukocyte Esterase Trace H Urine RBC 0-2 Urine WBC 0-5 Ur Squamous Epith Cells 3-5 Urine Bacteria None Seen Hyaline Casts 0-2 Influenza Type A (PCR) NEGATIVE Influenza Type B (PCR) NEGATIVE RSV RNA Qual (PCR) NEGATIVE SARS-CoV-2 RNA (RT-PCR) NEGATIVE ECG Interpretation: EKG with atrial fibrillation at a rate of 116/Min. Currently, rate is around 90-100/Min. Could also be flutter. Difficult to see. Assessment and Plan (1) Atrial fibrillation with rapid ventricular response: Status: Acute (2) Cardiomyopathy: Status: Acute Plan Recurring atrial fibrillation spite of using amiodarone with a history of cardiomyopathy. For home meds, she is on amiodarone 200 mg daily and metoprolol 25 mg b.i.d.. She is also on Eliquis 5 mg b.i.d.. She states that she has taken anticoagulation without any interruptions. We discussed about another cardioversion and she feels very symptomatic. She agrees. Scheduled for today at 11:00. Keep NPO. Post cardioversion, possibly consider ablation as she had atrial fibrillation spite of amiodarone use. We will discuss with primary cardiology. Discussed with Dr. Leon. Procedures Date of Service Date of Service: 11/21/24
--- NOTE | 2024-11-21 10:20 | P.PNCAR_ITS ---
Cardioversion Procedure Note Cardioversion Date of Procedure: 11/21/2024 Indication for Procedure: Atrial flutter with rapid ventricular rate Pre-Op Diagnosis: Atrial flutter with rapid ventricular rate. Post-Op Diagnosis: Sinus rhythm Consent: Informed consent obtained. Procedure: After informed consent was obtained, patient was taken to the PACU. The patient was then positioned appropriately. Cardioversion pads were placed in anteroposterior position. Once under anesthesia, 120 joules of synchronized shock was administered. The rhythm converted from atrial flutter to sinus rhythm. Patient remained in sinus rhythm after the end of procedure. Complications: None. Impression: Successful cardioversion from atrial flutter with rapid rate to sinus rhythm. Recommendations: Increase Amiodarone 400 mg daily for 2 weeks. Then back to 200 mg daily. Follow up with her own digital product manager, Dr. Jones. Message sent by [employer] and reply received.
--- NOTE | 2024-11-21 10:44 | MHC.SHP ---
Pre-Procedural Eval Section A - 24 Hr Update-Section A only Date of Service: 11/21/24 The patient is an INPATIENT: Yes Section B - Complete if H&P > 30 days Chief Complaint: Afib w/RvR Allergies: Allergies Allergy/AdvReac Type Severity Reaction Status Date / Time No Known Allergies Allergy Verified 11/20/24 15:45 Plan I have reviewed the history and physical and performed a pertinent physical examination on my patient. No changes have occurred unless specified. Time Spent With Patient Time: Total time managing care of this patient today ____ minutes.
--- NOTE | 2024-11-21 10:45 | P.CONAN_ITS ---
[facility] Active Problems Active Problems: All Active Problems Cardiomyopathy (Acute) Atrial fibrillation with RVR (Acute) Impingement of right shoulder (Acute) Arthritis of right knee (Acute) Atrial fibrillation with rapid ventricular response (Acute) CHF (congestive heart failure) (Acute) COVID-19 (Acute) Elevated troponin (Acute) Right hip pain (Acute) Impacted cerumen, left ear (Acute) Hearing difficulty of left ear (Acute) Scaphoid fracture (Acute) Left wrist sprain (Acute) Past Medical History Medical History Arthritis of right knee CHF (congestive heart failure) Tachycardia Afib Cognitive capacity: normal Functional capacity: independent ambulation Family History Family history of problems with anesthesia: No Surgical History History of Problems with Anesthesia: No Social History Social History Household Members: Family Housing: House Do you presently have visiting nurse or other home services: No Alcohol intake: never Comment: pt gait steady Patient Tobacco Use Status: Never used Tobacco Smoked in Last 30 Days: No e-Cigarette/Vaping Use: Never Used Use of substances other than those prescribed or required for medical reasons: No Have you been hit, kicked, punched, or otherwise hurt by someone within the past year? 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 Meds Allergies Allergy/AdvReac Type Severity Reaction Status Date / Time No Known Allergies Allergy Verified 11/20/24 15:45 Active Medications: Current Medications Acetaminophen (Acetaminophen 325 Mg Tablet) 650 mg PO Q6H PRN PRN Reason: Pain, Mild 1-3,fever,headache Al Hydroxide/Mg Hydroxide (Magnesium Hydrox/Alum Hydrox 30 Ml Oral.Susp) 30 ml PO Q4H PRN PRN Reason: Heartburn Amiodarone HCl (Amiodarone Hcl 200 Mg Tablet) 200 mg PO DAILY VIVIEN Apixaban (Apixaban 5 Mg Tablet) 5 mg PO BID [facility] Last Admin: 11/21/24 09:12 Dose: 5 mg Calcium Carbonate (Calcium Carbonate 750 Mg Tab.Chew) 750 mg PO Q4H PRN PRN Reason: Heartburn Magnesium Hydroxide (Milk Of Magnesia 30 Ml Oral.Susp) 30 ml PO DAILY PRN PRN Reason: Constipation Melatonin (Melatonin 3 Mg Tablet) 6 mg PO BEDTIME PRN PRN Reason: Insomnia Metoprolol Tartrate (Metoprolol Tartrate 25 Mg Tablet) 25 mg PO QID [facility]; Protocol Last Admin: 11/21/24 09:12 Dose: 25 mg Ondansetron HCl (Ondansetron Hcl 4 Mg/2 Ml Vial) 4 mg IVPUSH Q8H PRN PRN Reason: Nausea and Vomiting Polyethylene Glycol (Polyethylene Glycol 3350 17 Gm Powd.Pack) 17 gm PO DAILY PRN PRN Reason: Constipation Pravastatin Sodium (Pravastatin Sodium 40 Mg Tablet) 40 mg PO BEDTIME [facility] Last Admin: 11/20/24 22:31 Dose: 40 mg Sacubitril/Valsartan (Sacubitril/Valsartan 97/103 1 Tab Tablet) 1 tab PO BID [facility]; Protocol Last Admin: 11/21/24 09:12 Dose: 1 tab Sodium Chloride (0.9 % Sodium Chloride Flush 3 Ml Syringe) 3 ml IVFLUSH [facility] Last Admin: 11/21/24 09:13 Dose: 3 ml Home Medications ?Medication ?Instructions ?Recorded ?Confirmed ?Last Taken ?Type pravastatin 40 mg tablet 40 mg PO BEDTIME 02/11/21 11/20/24 11/19/24 History apixaban 5 mg tablet (Eliquis) 5 mg PO BID 04/08/22 11/20/24 11/20/24 History furosemide 20 mg tablet 40 mg PO BID 06/26/23 11/20/24 11/20/24 History amiodarone 200 mg tablet 200 mg PO DAILY 11/20/24 11/20/24 11/20/24 History jqhymubw-wqvzyrc-ajzm-lutein tablet 1 tab PO DAILY 11/20/24 11/20/24 11/20/24 History sacubitril 97 mg-valsartan 103 mg 1 tab PO BID 11/20/24 11/20/24 11/20/24 History tablet (Entresto) vitamins A,C,B-zuwo-lpexlp 2,148 2 tab PO DAILY 11/20/24 11/20/24 11/20/24 History mcg-113 mg-45 mg-17.4 mg tablet (PreserVision AREDS) Exam Exam Date and Time: 11/21/2024 Height,Weight and Vital Signs: Height 5 ft 1 in Weight 85.1 kg Last Vital Signs Temp 99.3 F 11/21/24 10:33 Pulse 97 11/21/24 10:33 Resp 16 11/21/24 10:33 BP 138/76 11/21/24 10:33 Pulse Ox 99 11/21/24 10:33 O2 Del Method Room Air 11/21/24 10:33 Pertinent Lab Results Pertinent Lab Results: Laboratory Tests 11/20/24 11/20/24 11/21/24 15:56 16:17 06:39 WBC 5.5 5.3 RBC 3.58 L 3.57 L Hgb 11.3 L 11.2 L Hct 33.0 L 33.7 L MCV 92.2 94.4 MCH 31.6 31.4 MCHC 34.2 33.2 RDW 12.8 12.8 Plt Count 210 D 225 MPV 9.1 L 9.6 Immature Gran % (Auto) 0.2 0.2 Neut % (Auto) 68.6 62.6 Lymph % (Auto) 22.1 27.1 [place] % (Auto) 9.1 9.9 Eos % (Auto) 0.0 0.0 Baso % (Auto) 0.0 0.2 Lymph # (Auto) 1.2 1.4 [place] # (Auto) 0.5 0.5 Eos # (Auto) 0.0 0.0 Baso # (Auto) 0.0 0.0 Abs Immat Gran (auto) 0.01 0.01 Absolute Neuts (auto) 3.8 3.3 Absolute Nucleated RBC 0.000 0.000 Nucleated RBC % (auto) 0.0 0.0 PT 16.3 H INR 1.4 H Sodium 142 144 Potassium 4.3 4.0 Chloride 103 107 Carbon Dioxide 28 30 H Anion Gap 15 11 L BUN 29 H 28 H Creatinine 1.23 1.20 Estim Creat Clear Calc 34.3 34.5 Estimated GFR 42 43 Random Glucose 128 H 92 Calcium 9.3 8.8 Magnesium 2.1 Total Bilirubin 0.5 0.6 AST 22 20 ALT 16 14 Alkaline Phosphatase 78 72 Troponin I High Sens 6.5 D B-Natriuretic Peptide 340 H Total Protein 6.4 L 5.9 L Albumin 4.0 3.7 Urine Color Yellow Urine Appearance Clear Urine pH 7.5 Ur Specific [place] 1.015 Urine Protein 30 (1+) H Urine Glucose (UA) Negative Urine Ketones Negative Urine Blood Negative Urine Nitrite Negative Ur Leukocyte Esterase Trace H Urine RBC 0-2 Urine WBC 0-5 Ur Squamous Epith Cells 3-5 Urine Bacteria None Seen Hyaline Casts 0-2 Influenza Type A (PCR) NEGATIVE Influenza Type B (PCR) NEGATIVE RSV RNA Qual (PCR) NEGATIVE SARS-CoV-2 RNA (RT-PCR) NEGATIVE Airway Mallampati Class: III TM Dist: >3cm Neck ROM: Full Loose/Missing/Broken Teeth: No Heart: rrr Lungs: cta Assessment and Plan Final Anesthetic Review Family History of Problems with Anesthesia: No History of Problems with Anesthesia: No NPO: Yes ASA Class: III Final Preanesthetic Review: No Changes in Pt Med Stat, Meds/Allgs Chart Reviewed, Consent Obtained/Reviewed and Anes Risks/Benef Reviewed Patient Risk: Low Procedure Risk: Low Anesthetic Plan Anesthetic Plan: MAC: Disposition: Standard PACU
--- NOTE | 2024-11-21 10:52 | ECG_ITS ---
Test Reason : post op Blood Pressure : */* mmHG Vent. Rate : 58 BPM Atrial Rate : 58 BPM P-R Int : 192 ms QRS Dur : 110 ms QT Int : 484 ms P-R-T Axes : * -46 47 degrees QTcB Int : 475 ms Sinus bradycardia with Premature atrial complexes Left axis deviation Low voltage QRS Inferior infarct (cited on or before 29-Jun-2023) Cannot rule out Anterior infarct , age undetermined Abnormal ECG When compared with ECG of 20-Nov-2024 15:58, Sinus rhythm has replaced Atrial fibrillation Vent. rate has decreased by 58 bpm Referred By: Mariana Garay Electronically Signed By: MARIANA GARAY
[2024-11-21] MEDS: Amiodarone HCL 200 MG TABLET PO ×2 (11:30→14:19)
[2024-11-21] MEDS: Pravastatin Sodium 40 MG TABLET PO (20:24)
[2024-11-22] VITALS: BP 129/58; PULSE 65; RESP 16; TEMP 36.3; O2SAT 100
[2024-11-22 03:54] VITALS: BP 134/60; PULSE 60; RESP 16; TEMP 36.3; O2SAT 98
--- NOTE | 2024-11-22 07:14 | PM.DS ---
DS: Providers Provider Date of Service: 11/22/24 Date of admission: 11/20/24 17:03 Date of discharge: 11/22/24 Primary care physician: Seth Khan MD Consults: 11/20/24 17:43 Consult to Cardiology Routine Consulting Provider: [facility] Reason for consultation: old AFIB with RVR, on amio Has provider been notified: Yes DS: Diagnosis Discharge Diagnosis (1) Atrial fibrillation with rapid ventricular response: Status: Acute (2) CHF (congestive heart failure): Status: Acute DS: Summary Hospital Course Hospital Course: admission hpi Chief Complaint: shoulders feeling heavy 84/F with unspecified CHF, h/o permanent AF on eliquis, metoprolol and amiodarone; HLD here with generalized unwell, heavyness in the shoulders and feeling week and feeling off and having palpiations; the symptoms have been ongoing for the last 2 days, and reminescanent of past episodees of afib with RVR. She is noted to be in AFIB with RVR, HR toping 135 and received IV metoprolol in the ED. She denies palpitations, sob or chest rell. HR remains variable from < 100 to 120s hospital course: Patient was admitted for management of symptomatic AFIB with RVR and treated in with IV metoprolol in the ED and continued on oral metoprolol, along with amiodarone. He was evaluated the next day by cardiology and underwent direct current cardioversion with successful cheondoism to sinus rhythm. Amiodarone dose has been increased to 400 mg to increase the chance of staying in sinus rythm, and after 2 weeks then to return to 200 md daily. To continue metoprolol at 25 mg twice daily as well. 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 [place] Time Attestation Discharge Coordination Time (in mins): 40 Quality: Safe Use of Opioids Does Pt have an Active Cancer Diagnosis on the Problem List?: No Quality: Stroke Does the patient have a stroke diagnosis?: No Physical Exam Vital Signs: Vital Signs: Selected Entries 11/22/24 03:54 Temperature 97.4 F Pulse Rate 60 Respiratory Rate 16 Blood Pressure 134/60 Pulse Oximetry 98 Oxygen Delivery Me thod Room Air Const: Other: General: AO X 3, no acute distress Resp: CTA bilateral CVS: S1,S2,RRR GI: +BS, NT, no distention Skin: No rash Neuro: motor grossly intact Psych: appropriate affect DS: Data Data Completed and Pending Completed studies during hospitalization [Text1]: Procedures [employer] of Cardiac Rhythm, Single (06/25/23) Labs on day of discharge: Laboratory Results - last 24 hr 11/20/24 11/20/24 11/21/24 15:56 16:17 06:39 WBC 5.5 5.3 RBC 3.58 L 3.57 L Hgb 11.3 L 11.2 L Hct 33.0 L 33.7 L MCV 92.2 94.4 MCH 31.6 31.4 MCHC 34.2 33.2 RDW 12.8 12.8 Plt Count 210 D 225 MPV 9.1 L 9.6 Immature Gran % (Auto) 0.2 0.2 Neut % (Auto) 68.6 62.6 Lymph % (Auto) 22.1 27.1 [place] % (Auto) 9.1 9.9 Eos % (Auto) 0.0 0.0 Baso % (Auto) 0.0 0.2 Lymph # (Auto) 1.2 1.4 [place] # (Auto) 0.5 0.5 Eos # (Auto) 0.0 0.0 Baso # (Auto) 0.0 0.0 Abs Immat Gran (auto) 0.01 0.01 Absolute Neuts (auto) 3.8 3.3 Absolute Nucleated RBC 0.000 0.000 Nucleated RBC % (auto) 0.0 0.0 PT 16.3 H INR 1.4 H Sodium 142 144 Potassium 4.3 4.0 Chloride 103 107 Carbon Dioxide 28 30 H Anion Gap 15 11 L BUN 29 H 28 H Creatinine 1.23 1.20 Estim Creat Clear Calc 34.3 34.5 Estimated GFR 42 43 Random Glucose 128 H 92 Calcium 9.3 8.8 Magnesium 2.1 Total Bilirubin 0.5 0.6 AST 22 20 ALT 16 14 Alkaline Phosphatase 78 72 Troponin I High Sens 6.5 D B-Natriuretic Peptide 340 H Total Protein 6.4 L 5.9 L Albumin 4.0 3.7 Urine Color Yellow Urine Appearance Clear Urine pH 7.5 Ur Specific [place] 1.015 Urine Protein 30 (1+) H Urine Glucose (UA) Negative Urine Ketones Negative Urine Blood Negative Urine Nitrite Negative Ur Leukocyte Esterase Trace H Urine RBC 0-2 Urine WBC 0-5 Ur Squamous Epith Cells 3-5 Urine Bacteria None Seen Hyaline Casts 0-2 Influenza Type A (PCR) NEGATIVE Influenza Type B (PCR) NEGATIVE RSV RNA Qual (PCR) NEGATIVE SARS-CoV-2 RNA (RT-PCR) NEGATIVE Discharge Plan Discharge Anticipated Discharge Date/Time: 11/22/24 13:33 Patient Disposition: Home, Self-Care Discharge Diagnosis: AFIB with RVR Referrals: Seth Khan MD [Primary Care Provider] - 1 Week Discharge Medications: New amiodarone 200 mg Tablet See Rx Instructions .ROUTE .COMPLEX Qty: 180 0RF Rx Instructions: Take 2 tabs (400 mg) daily for 12 more days, starting tomorrow 11/23/24, then starting 12/06/24 take 1 tab (200 mg) daily Continued Entresto 97-103 mg tablet 1 tab PO BID roizoihz-evsbjtp-pxau-lutein Tablet 1 tab PO DAILY PreserVision AREDS 2,148 mcg-113 mg-45 mg-17.4mg Tablet 2 tab PO DAILY furosemide 20 mg tablet 40 mg PO BID metoprolol tartrate 25 mg Tablet 25 mg PO BID Qty: 60 0RF Protocol: Hold for SBP/HR < HOLD for SBP < : 90 HOLD for HR < : 60 pravastatin 40 mg tablet 40 mg PO BEDTIME Eliquis 5 mg tablet 5 mg PO BID Discontinued amiodarone 200 mg tablet 200 mg PO DAILY Rx Instructions: use 400 mg(2tabs) po amiodarone twice daily for 2weeks (until 07/12/23),then switch to amiodarone 200 mg daily on 07/13/23. Discharge Orders: Discharge Order (Routine); Ordered 11/22/24 Ordered By: Evaristo Leon Diet: Advance to usual diet Activity on Discharge: As tolerated Stand Alone Forms: Patient Portal Discharge page Print Language: Albanian Care Plan Goals: recovery from atrial fibrillation and maintaining sinus rhythm Health Concerns: Atrial fibrilation with rapid ventricular response Plan of Treatment: take amiodarone 2 tabs (400 mg ) daily for 2 weeks (12 more days), then go back to 200 mg daily starting December 06 2024 follow up with your heart doctor in a week Assessment: see above
[2024-11-22 07:21] VITALS: BP 140/70; PULSE 60; RESP 18; TEMP 36.2; O2SAT 95
--- NOTE | 2024-11-22 07:57 | HO.POSTANES ---
Post Anesthesia Evaluation Post Anesthesia Evaluation Date of Service: 11/22/24 Vital Signs: Vital Signs Temp Pulse Resp BP Pulse Ox O2 Del Method 11/22/24 07:21 97.2 F 60 18 140/70 H 95 Room Air 11/22/24 03:54 97.4 F 60 16 134/60 98 Room Air 11/22/24 00:00 97.4 F 65 16 129/58 L 100 Room Air 11/21/24 20:00 97.5 F 63 17 102/53 L 98 Room Air Anesthesia: General Mental Status: Awake Pain Control: Satisfactory Nausea/Vomiting: None Hydration: Adequate Anesthesia-Related Issues: No Anes. Related Issues
[2024-11-22] MEDS: 0.9 % Sodium Chloride Flush 3 ML SYRINGE IVFLUSH (08:18)
[2024-11-22] MEDS: Metoprolol Tartrate 25 MG TABLET PO (08:18)
[2024-11-22] MEDS: Apixaban 5 MG TABLET PO (08:19)
[2024-11-22] MEDS: Sacubitril/Valsartan 97/103 1 TAB TABLET PO (08:19)
[2024-11-22] MEDS: Amiodarone HCL 200 MG TABLET 400 MG PO (08:19)
--- NOTE | 2024-11-22 08:34 | MHC.CM.PN ---
Patient has been medically cleared for dc to home today, self care.Last IMM was addressed yesterday.
--- NOTE | 2024-11-22 11:01 | PM.PNCARD ---
Subjective Subjective Date of Service: 11/22/24 Interval history: Patient states that she feels well. Underwent cardioversion yesterday. Remains in sinus rhythm. Review of Systems Review of Systems Yes all other systems are reviewed and are negative Constitutional: Reports as per HPI and Reports no additional constitutional complaints Eyes: Reports as per HPI and Denies no additional eye complaints Denies system reviewed and no additional complaints, except as documented and Reports as per HPI Cardiovascular: Reports as per HPI, Reports no additional cardiovascular complaints, Denies acrocyanosis, Denies cool extremities, Denies chest pain, Denies leg edema, Denies lightheadedness, Denies palpitations and Denies dyspnea Respiratory: Reports as per HPI, Denies no additional respiratory complaints and Denies dyspnea Gastrointestinal: Reports as per HPI and Denies no additional gastrointestinal complaints Genitourinary: Reports as per HPI Musculoskeletal: Reports no additional musculoskeletal complaints and Reports as per HPI Skin/Breast: Reports system reviewed and no additional complaints, except as docu Reports system reviewed and no additional complaints, except as documented and Reports as per HPI Psychiatric: Reports no additional psychiatric complaints and Reports as per HPI Endocrine: Reports no additional endocrine complaints, Reports as per HPI and Denies palpitations Hematologic/Lymphatic: Reports no additional hematologic/lymphatic complaints and Reports as per HPI Allergic/Immunologic: Reports no additional allergic/immunologic complaints and Reports as per HPI Physical Exam Vital Signs: Last Vital Signs Temp 97.2 F 11/22/24 07:21 Pulse 60 11/22/24 07:21 Resp 18 11/22/24 07:21 BP 140/70 H 11/22/24 07:21 Pulse Ox 95 11/22/24 07:21 O2 Del Method Room Air 11/22/24 07:21 O2 Flow Rate 2 11/21/24 11:05 BMI result Body Mass Index 35.4 Const General: comfortable and no acute distress Orientation/consciousness: patient oriented x3 HEENT Other: Unremarkable Head: Yes normal to inspection Neck Neck: Yes normal visual inspection Chest Chest palpation & inspection: normal inspection of the chest Resp Auscultation: clear to auscultation bilaterally Cardio Palpation: normal PMI Heart sounds: S1 normal heart sound present, S2 normal heart sound present, no gallops, no murmurs and no rubs GI Palpation (GI): Soft to palpation Back/Spine/Pelvis Other: unremarkable Skin General skin exam: no rashes or lesions noted Neuro General: patient oriented x3 Extrem General: Yes normal to inspection Psych Mental Status: mental status grossly normal Objective Labs and Meds 11/21/24 06:39 11/21/24 06:39 Progress Note: A&P Assessment and plan (1) Atrial fibrillation with rapid ventricular response: Status: Acute (2) Cardiomyopathy: Status: Acute Plan Paroxysmal atrial fibrillation; history of cardioversion in 2023; history of cardiomyopathy; repeat cardioversion yesterday and now back to normal sinus rhythm. Symptomatically, she is much improved. Continue amiodarone but we can increase the dose to 400 mg once a day for the next 2 weeks and then go back to 200 mg daily. Continue beta-blockers. Continue Eliquis. 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 Time Spent With Patient Time: Total time managing care of this patient today ____ minutes. Progress Note: Quality Stroke Does the patient have a stroke diagnosis?: No Procedures Date of Service Date of Service: 11/22/24
[2024-11-22 11:02] VITALS: PULSE 58; RESP 18; TEMP 36.2; O2SAT 100
== END 2024-11-22 15:13 | disposition home or self-care (01) | DRG 308 ==
LOC: HO.ED 16:46 → HO.EDOVER 17:29 → HO.IMC 19:11
PROVIDERS: Internal Medicine; Physician Assistant Medical; Admitting Provider Student in an Organized Health Care Education/Training Program; Emergency Provider Emergency Medicine Emergency Medical Services; PCP Internal Medicine; Visit Provider Internal Medicine
PROC: 5A2204Z Restoration of Cardiac Rhythm, Single (ICD-10-PCS; principal; 2024-11-21 11:00)
DX: I48.21 Permanent atrial fibrillation (principal); I50.23 Acute on chronic systolic (congestive) heart failure; E78.5 Hyperlipidemia, unspecified; I42.9 Cardiomyopathy, unspecified; Z20.822 Contact with and (suspected) exposure to COVID-19; Z79.01 Long term (current) use of anticoagulants; Z79.899 Other long term (current) drug therapy
CPT/HCPCS: 0241U; 36415; 80053; 81001; 83735; 83880; 84484; 85025; 85610; 92960; 93005; 99285; J2003; J2704

== ENCOUNTER 2024-11-20 17:03 | Outpatient (BNV) | payer MEDICARE, SELFPAY | END 2024-11-21 10:52 | PROVIDERS: Admitting Provider Student in an Organized Health Care Education/Training Program; Emergency Provider Emergency Medicine Emergency Medical Services; PCP Internal Medicine; Visit Provider Internal Medicine | DX: I49.1 Atrial premature depolarization (principal); I25.2 Old myocardial infarction | CPT/HCPCS: 93010 ==

== ENCOUNTER → 2024-11-20 17:03 | Outpatient (BNV) | payer MEDICARE, SELFPAY | PROVIDERS: Admitting Provider Student in an Organized Health Care Education/Training Program; Emergency Provider Emergency Medicine Emergency Medical Services; PCP Internal Medicine; Visit Provider Internal Medicine | DX: I48.91 Unspecified atrial fibrillation (principal); I42.9 Cardiomyopathy, unspecified | CPT/HCPCS: 92960; 93010; 99223; 99232 ==

== ENCOUNTER → 2024-11-20 17:03 | Outpatient (BNV) | payer MEDICARE, SELFPAY | PROVIDERS: Admitting Provider Student in an Organized Health Care Education/Training Program; Emergency Provider Emergency Medicine Emergency Medical Services; PCP Internal Medicine; Visit Provider Internal Medicine | DX: I48.91 Unspecified atrial fibrillation (principal); I50.9 Heart failure, unspecified | CPT/HCPCS: 99223; 99232; 99239 ==

== ENCOUNTER 2024-12-04 10:58 | Outpatient (AMB) | payer MEDICARE, SELFPAY ==
--- NOTE | 2024-12-04 11:03 | A.OFFVIS_ITS ---
Vital Signs 12/04/24 11:04 Height 5 ft 1 in Weight 187 lb BMI 35.3 Intake Visit Reasons: Inj-RT knee inj, last inj 08/30/24 Intake Note: Swetha is an 84 year old female who presents with complaints of progressively worsening right knee pain. She describes her pain as sharp in nature. Her pain has gotten worse over the last few months in spite of continued non operative treatments. She has had cortisone injections in the past which gave her fairly good relief. She has taken Tylenol which gives her minimal relief. She is not able to take anti-inflammatory medicines because she is on Eliquis. She wishes to hold off on total knee replacement surgery for as long as possible. Allergies No Known Allergies Allergy (Verified 12/04/24 11:04) Medication List - Last Reconciled 12/04/24 by Wai Kendrick MD amiodarone Take 2 tabs (400 mg) daily for 12 more days, starting tomorrow 11/23/24, then starting 12/06/24 take 1 tab (200 mg) daily apixaban (Eliquis) 5 mg PO BID furosemide 40 mg PO BID metoprolol tartrate 25 mg See Protocol PO BID ybmrbwjc-rgxknds-hipf-lutein 1 tab PO DAILY pravastatin 40 mg PO BEDTIME sacubitril-valsartan 97-103 mg (Entresto) 1 tab PO BID vitamins A,C,F-kvgl-ulcaau 2,148 mcg-113 mg-45 mg-17.4mg (PreserVision AREDS) 2 tabs PO DAILY PFSH Medical History Arthritis of right knee CHF (congestive heart failure) Tachycardia Afib Social History Household Members: Family Housing: House Do you presently have visiting nurse or other home services: No Alcohol intake: never Comment: pt gait steady Patient Tobacco Use Status: Never used Tobacco e-Cigarette/Vaping Use: Never Used service: No Current occupational status: 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 Physical Exam Vital Signs: BMI result Body Mass Index 35.3 Const Other: Well-nourished well-developed very friendly female awake alert and oriented x3 in no acute distress Extrem Other: Bilateral lower extremity examination shows good capillary refill, no skin lesions noted, normal sensation light touch Right knee examination shows a minimal effusion, palpable crepitus with range of motion, pain with range of motion, no instability Office Procedures AMB Joint Injection/Aspiration Joint Injection/Aspiration Primary Site: right knee Prep: site was prepped using aseptic technique Injected: 40 mg of, DepoMedrol and 1% plain lidocaine Procedure: The patient tolerated the procedure well Coding 54266 - Large joint Procedure code (CPT) selection complete Results Reviewed Results Reviewed: X-rays of the patient's right knee taken previously show joint space narrowing, subchondral sclerosis, no acute bony abnormalities Assessment & Plan Assessment & Plan (1) Arthritis of right knee: Code(s): M17.11 - Unilateral primary osteoarthritis, right knee Category: Medical Plan Ms. May presents with right knee pain due to degenerative joint disease. The risks and benefits of a right knee cortisone injection were discussed at length with the patient. The patient wishes to proceed. She tolerated the injection well. She will continue with her home exercise program. She will contact me pr ior to her follow-up appointment in 3 months should any questions or concerns arise. Feel free to call me at any time should questions regarding her orthopedic management arise. I spent 20 minutes in reviewing the patient's records and imaging studies, seeing the patient and documenting in the medical record. Orders: Orders AMB Joint Injection/Aspiration Today M17.11 - Unilateral primary osteoarthritis, right knee Coding Level of Care Code Est Pt Level 3 (80114) Complex EM visit Add On G2211 Diagnoses Arthritis of right knee M17.11 CPT Codes Coding - 71607 Large joint: 56318 - Large joint ([id number])
[2024-12-04 11:04] VITALS: BMI 35.3
--- OUTSIDE RECORDS SUMMARY | 2024-12-04 12:30 | XMS_ITS | Clinical Summary ---
Author Organization [facility] Address [address] [place] [address] Care Team Providers Care Language Asst Name Role Phone Jena Lewis MD Primary [...] age to complete this topic Care Teams Language Asst Relationship Specialty Start Date End Date Jena Lewis MD [address] [place] [address] PCP - General Internal Medicine 12/07/17
== END 2024-12-04 11:29 | disposition home or self-care (01) ==
LOC: HO.HOS 10:59
PROVIDERS: PCP Internal Medicine; Visit Provider Orthopaedic Surgery
DX: M17.11 Unilateral primary osteoarthritis, right knee (principal)
CPT/HCPCS: 20610; 99213

== ENCOUNTER → 2024-12-04 10:58 | Outpatient (BNVA) | payer MEDICARE, SELFPAY | PROVIDERS: PCP Internal Medicine; Visit Provider Orthopaedic Surgery | DX: M17.11 Unilateral primary osteoarthritis, right knee (principal) | CPT/HCPCS: 20610; 99212; J1010; J2003 ==

== ENCOUNTER 2025-03-06 11:18 | Outpatient (AMB) | payer MEDICARE, SELFPAY ==
--- NOTE | 2025-03-06 11:26 | MHC.OFFVIS ---
Intake Visit Reasons: Right knee pain Intake Note: Swetha is a 84 year old female who presents with complaints of right knee pain. She describes her pain as sharp in nature. She has tried Tylenol which gives her minimal relief. She is not able to take anti-inflammatory medicines because she is on Eliquis. She has had cortisone injections in the past which gave her fairly good relief. Allergies No Known Allergies Allergy (Verified 03/06/25 11:32) Medication List - Last Reconciled 03/06/25 by Wai Kendrick MD amiodarone Take 2 tabs (400 mg) daily for 12 more days, starting tomorrow 11/23/24, then starting 12/06/24 take 1 tab (200 mg) daily apixaban (Eliquis) 5 mg PO BID furosemide 40 mg PO BID metoprolol tartrate 25 mg See Protocol PO BID yozebrjw-rcavrtg-djpe-lutein 1 tab PO DAILY pravastatin 40 mg PO BEDTIME ropinirole 0.5 mg PO BEDTIME sacubitril-valsartan 97-103 mg (Entresto) 1 tab PO BID vitamins A,C,C-efqm-qixlpy 2,148 mcg-113 mg-45 mg-17.4mg (PreserVision AREDS) 2 tabs PO DAILY PFSH Medical History Arthritis of right knee CHF (congestive heart failure) Tachycardia Afib Social History Household Members: Family Housing: House Do you presently have visiting nurse or other home services: No Alcohol intake: never Comment: pt gait steady Patient Tobacco Use Status: Never used Tobacco e-Cigarette/Vaping Use: Never Used service: No Current occupational status: 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 Physical Exam Const Other: Well-nourished well-developed very friendly female awake alert and oriented x3 in no acute distress Extrem Other: Right knee examination shows a minimal effusion, palpable crepitus with range of motion, pain with range of motion, no instability Office Procedures AMB Joint Injection/Aspiration Joint Injection/Aspiration Primary Site: right knee Prep: site was prepped using aseptic technique Injected: 40 mg of, DepoMedrol and 1% plain lidocaine Procedure: The patient tolerated the procedure well Coding - Large joint Procedure code (CPT) selection complete Results Reviewed Results Reviewed: X-rays of the patient's right knee taken previously show joint space narrowing, subchondral sclerosis, no acute bony abnormalities Assessment & Plan Assessment & Plan (1) Arthritis of right knee: Code(s): M17.11 - Unilateral primary osteoarthritis, right knee Category: Medical (2) Right knee pain: Code(s): M25.561 - Pain in right knee Plan Ms. May presents with right knee pain due to degenerative joint disease. The risks and benefits of a right knee cortisone injection were discussed at length with the patient. The patient wished to proceed. She tolerated the injection well. She will continue with her home exercise program. She will contact me prior to her follow-up appointment in 3 months should any questions or concerns arise. Feel free to call me at any time should questions regarding her orthopedic management arise. I spent 21 minutes in reviewing the patient's records and imaging studies, seeing the patient and documenting in the medical record. Orders: Orders AMB Joint Injection/Aspiration Today M17.11 - Unilateral primary osteoarthritis, right knee Coding Level of Care Code Est Pt Level 3 (24066) Complex EM visit Add On G2211 Diagnoses Arthritis of right knee M17.11 Right knee pain M25.561 CPT Codes Coding - Large joint: 29564 - Large joint ([id number])
--- OUTSIDE RECORDS SUMMARY | 2025-03-06 14:32 | XMS_ITS ---
Author Name [facility] Organization Unknown History of Medication Use Medication Directions Dispensed Refills Start Date End Date Stat lidocaine (PF) 10 mg/mL (1 %) injection solution Take 2 mL by injection route. 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
--- OUTSIDE RECORDS SUMMARY | 2025-03-06 14:32 | XMS_ITS | Encounter Summary ---
Author Organization [facility] Address [address] [place] [id number] Phone Care Team Providers Care Plasma Center Technician Name Role Phone Chetan Diaz MD Unavailable Jayne Quiroz PA-C Unavailable [phone] Mil Saravia MD Unavailable [phone] Seth Khan MD Primary Care Provider [phone] Seth Khan MD Unavailable Encounter Details Date Type Department Care Team (Late st Contact Info) Description 06/07/2023 Procedure Pass [facility] [place] [place] [address] Social History Tobacco Use Types Packs/Day Years Used Date Smoking Tobacco: Former Cigarettes 0.3 10 1 961 - 1970 Smokeless Tobacco: Never Comments:in 20's to early 30 's, few cigarettes daily Alcohol Use Standard Drinks/Week Comments Not Currently 0 (1 standard drink = 0.6 oz pur e alcohol) Education Answer Date Recorded Are you interested in more education? Not on shahida e 10/15/2022 Are you concerned about learning? Not on file 10/15/2022 No 10/15/2022 No 10/15/2022 Digital Access Answer Date Recorded No 11/12/2022 No 11/12/2022 Reliable internet access at home? Not on file 11/12/2022 Device with a working camera? Not on file Comments Unknown Sex and Gender Information Value Date Recorded Sex Assigned at Not on file Legal Sex Female 10:38 PM EDT Gender Identity Not on file Sexual Orientation Not on file documented as of this encounter Plan of Treatment Upcoming Encounters Date Type Department Care Team (Late st Contact Info) Description 04/08/2025 2:00 PM EDT Office Visit [facility] [address] [facility] [address] Floor, [address] [place] [address] Kendell Jones MD [address] [facility], [address] [place] [id number] [email or web address] 04/18/2025 11:00 AM EDT Office Visit [facility] [address] [place] [address] Seth Khan MD [address] [place] [address] [email or web address] documented as of this encounter Visit Diagnoses Not on filedocumented in this encounter Additional Health Concerns Infection Onset Date Last Indicated Resolved Time COVID-19 06/17/2024 06/17/2024 07/08/2024 1:21 AM EST Assessment Noted Time PHQ-2 Depression Total Score: 0 10/16/19 11:25 AM EDT documented as of this encounter Care Teams Plasma Center Technician Relationship Specialty Start Date End Date Seth Khan MD [address] [place] [address] PCP - General Internal Medicine 04/01/23 Chetan Diaz MD [address] [place] [address] [id number]/[employer] [place] [address] Obstetrics and Gynecology 01/24/19 Jayne Quiroz PA-C [address] [place] [address] Physician [facility] 05/28/21 Mil Saravia MD [address] [place] [address] [email or web address] Insurance Assigned Provider 09/25/22 09/24/23 Seth Khan MD [address] [place] [address] Insurance Assigned Provider 09/24/23 documented as of this encounter Additional Source Comments The information contained in this document represents components of the legal health record. It is not the complete legal health record.[facility]
--- OUTSIDE RECORDS SUMMARY | 2025-03-06 14:32 | XMS_ITS | Clinical Summary ---
Author Organization [facility] Address [address] [place] [address] Care Team Providers Care Typewriter Operator Automatic Name Role Phone Jena Lewis MD Primary [...] - 1-dose 75+ series) 09/05/2015 COVID-19 Vaccine (3 - season) 2025 08/26/2020, 08/04/2020 Influenza Vaccine (#1) 2025 2, 04/29/2020, 05/30/2019, Additional history exists Pneumococcal Vaccine Completed 08/16/2014, 07/23/19 09 Hepatitis B Vaccines Aged Out No long er eligible based on patient's age to complete this topic RSV Ped < 20 months Aged Out No longe r eligible based on patient's age to complete this topic Care Teams Typewriter Operator Automatic Relationship Specialty Start Date End Date Jena Lewis MD [address] [place] [address] PCP - General Internal Medicine 12/07/17
--- OUTSIDE RECORDS SUMMARY | 2025-03-06 14:32 | XMS_ITS | Clinical Summary ---
Author Organization [facility] Address [address] [place] [id number] Phone Care Team Providers Care Rolled Gold Plater Name Role Phone Chetan Diaz MD Unavailable [phone] Jayne Quiroz PA-C Unavailable [phone] Seth Khan MD Primary Care Provider [phone] Seth Khan MD Unavailable Allergies No known active allergies Medications calcium carb/vit D3/minerals (CALCIUM-VITAMI N D ORAL) Take 600 mg by mouth daily. Active multivitamins capsule Take by mouth. Active acetaminophen (TYLENOL) 325 mg tablet Take 975 mg by mouth every 6 (six) hours as needed. Active vitamins A,C,E-zinc-veronica er (PRESERVISION AREDS) [phone] xuve-cy-wzxd Cap Take 1 capsule by mouth 2 (two) times a day with meals. Active ELIQUIS 5 mg tabletIndicatio ns:Medication refill take 1 tablet by mouth twice a day 180 tablet 2 11/21/2023 Active pravastatin (PRAVACHOL) 40 MG tabletIndicatio ns:Medication refill take 1 tablet by mouth every day 90 tablet 3 02/28/2024 Active traMADoL (ULTRAM) 50 mg tablet Take 1 tablet by mouth every 8 (eight) hours as needed. Active metoprolol tartrate (LOPRESSOR) 25 MG tablet Take 1 tablet (25 mg total) by mouth 2 (two) times a day. 180 tablet 3 07/12/2024 Active amiodarone (PACERONE) 200 MG tablet Take 1 tablet (200 mg total) by mouth daily. 90 tablet 3 07/12/2024 Active furosemide (LASIX) 20 MG tablet TAKE 2 TABLETS BY MOUTH TWICE A DAY 360 tablet 3 08/31/2024 Active ENTRESTO 97-103 mg per tablet TAKE 1 TABLET BY MOUTH TWICE A DAY 180 tablet 3 09/19/2024 Active rOPINIRole (REQUIP) 0.5 MG tabletIndicatio ns:RLS (restless legs syndrome) TAKE 1 TABLET (0.5 MG TOTAL) BY MOUTH NIGHTLY AT BEDTIME 90 tablet 1 01/10/2025 Active Active Problems Problem Noted Date Diagnosed Date Hypomagnesemia 10/08/2024 Acute on chronic diastolic congestive heart fail ure 07/06/2023 Assessment & Plan (12/19/2024 2:11 PM EDT): Lungs were clear to auscultation and no JVD neck in the semisupine position. Lower extremities negative for edema. Heart was regular rate and rhythm. I asked her to move the evening dose of Lasix more to the early afternoon so she does not have diuresis late at night or early in the morning when she is trying to sleep. Malignant neoplasm of ovary, unspecified lateral ity 04/18/2023 Overview (04/18/2023): Left ovary and uterine cancer status post hysterectomy 2019 Heart failure 04/01/2023 Assessment & Plan (10/08/2024 10:44 AM EDT): She is being monitored with Entresto and amiodarone regarding her history of heart failure. Continue Lasix and will check electrolytes today. No overt signs of heart failure today on exam. Assessment & Plan (04/29/2023 3:51 PM EST): We again reviewed her nuclear stress test, which was normal without evidence of ischemia or infarction to explain the cardiomyopathy identified on echo back in November. Repeat echocardiogram shows persistently decreased EF at 35-45%. Overall, she's feeling well. She denies any symptoms concerning for heart failure. Tells me that she has chronic lower extremity edema that is fairly significant. In the summer, before her Lasix was increased, her legs were triple what they are now. She hates the diuretic effect of the increased dose but agrees that it has been keeping her symptomatically feeling well. Reviewed with Dr Jones. Will maximize her medications for now. She's really only on atenolol (for hx SVT/AF). Will start low dose Entresto. Historically, her renal function is normal and BP usually trends on the high side. I asked that she have a BMP drawn within the next couple of weeks after starting Entresto. She has an appointment scheduled with Dr Jones in one month, further medication adjustments will be made at that time depending on labs and how she tolerates Entresto. Assessment & Plan (04/01/2023 9:08 AM EDT): We reviewed her nuclear stress test, which was normal without evidence of ischemia or infarction to explain the cardiomyopathy identified on echo back in November. Overall, she's feeling well. She denies any symptoms concerning for heart failure. Tells me that she has chronic lower extremity edema that is fairly significant. In the summer, before her Lasix was increased, her legs were triple what they are now. Reviewed with Dr Jones. Will continue on current medication regimen for now and repeat echocardiogram to reassess EF. I will see her back in follow up after this is done. Prediabetes 11/18/2022 Assessment & Plan (04/18/2023 10:59 AM EDT): History of prediabetes, patient will have hemoglobin A1c drawn when she goes for her oncology labs nonfasting. Vascular insufficiency 10/29/2022 Assessment & Plan (10/29/2022 9:48 PM EDT): If BMP normal consider increased dose of furosemide given persistent swelling of legs. IFG (impaired fasting glucose) 05/23/2022 Assessment & Plan (10/29/2022 9:49 PM EDT): Check a1c Assessment & Plan (05/23/2022 3:50 PM EST): Check labs Insomnia 05/23/2022 Assessment & Plan (10/29/2022 9:50 PM EDT): Consider trazodone, Pat would be most comfortable if we consult with Dr. Robert gasca Assessment & Plan (05/23/2022 3:53 PM EST): Discussed management options. Teresa is agreeable to a low dose 12.5 or 25 mg Benadryl about an hour before bedtime nightly. She is aware that this could cause unsteadiness on her feet and therefore could put her at risk for falls. Do not mix with any other sedating meds. There is a chance for urinary retention on this med. She will let me know if it is not effective for her. Vitamin D deficiency, unspecified 05/23/2022 Assessment & Plan (10/29/2022 9:49 PM EDT): Check level Assessment & Plan (05/23/2022 3:50 PM EST): Check labs, continue current supplementation in the interim. Consider DXA At high risk for falls 05/23/2022 Assessment & Plan (05/23/2022 3:51 PM EST): Recommend continuing to use supports (cane) when walking at home. Minimize any obstacles on the floor. She will consider a LifeAlert after having conversation with her daughter today. Is aware of need for urgent follow up if any falls while on Eliquis. Factor V Leiden mutation 05/07/2021 Assessment & Plan (10/08/2024 10:42 AM EDT): The NOAC doubles up for paroxysmal atrial fibrillation, continue to take Eliquis for the dual indication. Assessment & Plan (04/18/2023 10:58 AM EDT): Patient continues faithfully on the Eliquis both for factor V Leiden but also for PAF. Hematoma of right psoas region to anticoagulant therapy 05/07/2021 RLS (restless legs syndrome) 05/07/2021 Assessment & Plan (12/19/2024 2:12 PM EDT): In the past magnesium had worked a little bit but not entirely. Will start the patient on Requip for restless leg syndrome which she classically describes. Start 0.5 mg and we can increase to 1 mg if she tolerates the lower dose. Will follow- up in March as previously ordered. Paroxysmal atrial fibrillation 06/07/2017 Assessment & Plan (12/19/2024 2:10 PM EDT): The patient appears to be in a regular rhythm at this time, she will remain on the metoprolol 25 mg twice daily. She was unable to keep the amiodarone that was increased to 400 mg because of nausea and stomach discomfort. She will return to 200 mg daily. She has follow-up with cardiology coming up later this month. She will keep that appointment. There was no signs of CHF on visit. Assessment & Plan (10/08/2024 10:44 AM EDT): Patient was regular rate and rhythm today, continue amiodarone per cardiology, will monitor thyroid yearly regarding the amiodarone. Assessment & Plan (04/29/2023 3:48 PM EST): Asymptomatic. Flecainide was discontinued when EF was noted to be newly low back in November. She feels no different off of flecainide. Her EKG today shows normal sinus rhythm. She will continue on just atenolol and Xarelto for now. Assessment & Plan (04/10/2021 9:58 AM EDT): History for atrial fibrillation and was on Xarelto 20 mg daily but had a spontaneous right psoas hematoma that occurred on 03/30/2021. She presented to [facility] with right leg pain as well as significant back pain. CT scan showed enlargement of the right psoas muscle with an area of increased attenuation. There was no trauma previous to this hematoma occurring. She was discharged from [facility] on aspirin 325 mg daily and her Xarelto was on hold until she came to this appointment. He also reports at this visit that she has factor V Leiden which she does not know if she had reported prior to this. Is rate controlled on atenolol 50 mg daily, flecainide 100 mg twice daily. It is unclear how long she needs to be off the Xarelto or when it needs to be restarted. I will reach out to Dr. Jones to see what his thoughts are. She does have a follow-up visit with him in May. She is scheduled to go home on Tuesday from rehab. Assessment & Plan (05/21/2020 12:02 PM EST): No clinical episodes. Following my long term she will follow up with my colleague in several months. Assessment & Plan (11/14/2019 11:45 AM EDT): Remains in sinus rhythm and is both anticoagulated and rate controlled. Asymptomatic. Assessment & Plan (05/04/2019 11:39 AM EST): In sinus rhythm today. Remains anticoagulated, rate controlled and on flecainide. Assessment & Plan (01/24/2019 1:24 PM EDT): Remains rate controlled and anticoagulated and in sinus rhythm. ECG today confirms sinus rhythm at a rate of 60 with left axis and poor precordial R wave progression. This is unchanged. QT is normal. She is at low risk of cardiac complications at the time of needed hysterectomy. She does not require bridging and I would stop her Xarelto 3 days before surgery and restart as soon as cleared by her surgeon. Other medications should be continued if possible. Assessment & Plan (09/20/2018 11:03 AM EDT): Maintaining sinus rhythm. Minimal palpitations. ECG confirms sinus rhythm. Assessment & Plan (03/14/2018 11:36 AM EDT): Maintaining sinus rhythm. No change in medications. Assessment & Plan (12/06/2017 11:23 AM EDT): In sinus rhythm. No change in medications. Assessment & Plan (06/07/2017 11:48 AM EST): Clearly in sinus rhythm today. No change in medications. She can hold her Xarelto for 2 days prior to her colonoscopy. No need for a Lovenox bridge. Hyperlipidemia 06/07/2017 Assessment & Plan (10/08/2024 10:45 AM EDT): History of dyslipidemia will obtain nonfasting lipid profile and liver enzymes, patient will continue on Pravachol 40 mg, will see if the patient' is at goal. Assessment & Plan (10/29/2022 9:49 PM EDT): Check lipids, LFTs Assessment & Plan (07/15/2021 4:16 PM EST): Patient tells me that her cholesterol was checked annually by Dr Moses. Will order fasting lipid panel to be done prior to her next follow up appointment. She has asked that this lab order be faxed to the [facility], which I have done. Continue pravastatin in the interim. Assessment & Plan (05/29/2021 3:12 PM EST): Patient tells me that her cholesterol was checked annually by Dr Moses. Will order fasting lipid panel to be done prior to her next follow up appointment. She has asked that this lab order be faxed to the [facility], which I have done. Continue pravastatin in the interim. Assessment & Plan (05/21/2020 12:02 PM EST): LDL is at 104. Goal is around 100 so I have not changed her therapy but I have asked her to repeat her numbers before her next visit in several months. Assessment & Plan (11/14/2019 11:45 AM EDT): Recent profile is at goal with an LDL of 99. Other parameters including renal and hepatic function are fine. Assessment & Plan (05/04/2019 11:39 AM EST): Statin unchanged. She will have labs drawn shortly. Assessment & Plan (09/20/2018 11:04 AM EDT): LDL at goal at less than 100. No changes Assessment & Plan (03/14/2018 11:36 AM EDT): Lipid profile is improved with an LDL of 91. No changes but will repeat her numbers in 6 months. Assessment & Plan (12/06/2017 11:23 AM EDT): I have taken the liberty of increasing her pravastatin to 40 mg a day and I will repeat her labs in about 2 or 3 months. Assessment & Plan (06/07/2017 11:48 AM EST): Recent labs include an LDL of 90 with an HDL of 79 and triglycerides 74. Hepatic and metabolic profiles remain normal. HTN (hypertension) Assessment & Plan (10/08/2024 10:43 AM EDT): Blood pressure is well-controlled continue the antihypertensive as such and we will follow-up with the patient in 6 months on physical. She will continue with the metoprolol Lasix and amiodarone obtain a Chem-7 today evaluating for hypokalemia and hypomagnesemia. Assessment & Plan (10/29/2022 9:49 PM EDT): Stable on current medication regimen Assessment & Plan (05/29/2021 3:14 PM EST): Well controlled on atenolol. Continue without change. PAF (paroxysmal atrial fibrillation) Assessment & Plan (07/06/2023 3:34 PM EST): Patient now in regular rhythm on the amiodarone. Counseled patient to continue the metoprolol and to discard the atenolol. Counseled patient to follow the directions of taking the amiodarone for 2 weeks 400 mg twice daily and then down to 200 mg and consult with [facility] cardiology regarding the ongoing prescription of amiodarone Assessment & Plan (04/18/2023 10:58 AM EDT): Most recently off of the flecainide currently just on atenolol but Lasix increased to 80 mg from 20 whereby patient lost about 10 pounds of fluid. Assessment & Plan (04/01/2023 9:09 AM EDT): Despite discontinuation of flecainide, she has not had symptomatic recurrence. She is in normal sinus rhythm on exam today with a heart rate in the 60s. Continue atenolol and Eliquis. Will reassess restarting flecainide depending on EF on next echo. Assessment & Plan (10/29/2022 9:49 PM EDT): Continue current anticoagulation Assessment & Plan (05/31/2022 12:23 PM EST): No recurrence on atenolol on flecainide, which she will continue without change. She developed a large spontaneous right psoas muscle hematoma last fall and would like it clarified in her chart that the hematoma was NOT precipitated by a fall/injury. She was on Xarelto at that time; has tolerated Eliquis since without recurrent episodes. Assessment & Plan (07/15/2021 4:15 PM EST): Patient had a spontaneous psoas hematoma in fall of 2020. Prior to this, she had been on Xarelto for many years without bleeding complication. Her CHADS VASC is a 4 (age, hypertension, and sex). We discussed the importance of anticoagulation therapies in regard to stroke prevention, which she understands. We will start Eliquis 5 mg BID and monitor closely for recurrence of adverse bleeding events, in which case we will consider a Watchman device. Assessment & Plan (05/29/2021 3:17 PM EST): Patient remains off of Xarelto at this time, pending heme/onc appointment. She is compliant with 325 mg daily ASA at this time. Very hesitant to restart anticoagulation as the hematoma sounds like it was quite a traumatic experience for her, though she states she would be willing to restart if deemed safe and necessary. In regard to her history of PAF, she should ideally be anticoagulated with either DOAC or warfarin. Will await heme/onc input, consider Watchman device if patient is unable to restart Xarelto. Osteoarthritis SVT (supraventricular tachycardia) Assessment & Plan (05/29/2021 3:11 PM EST): Patient reports that her palpitations consistent with prior episodic SVT have not recurred in many, many years. Mitral prolapse Assessment & Plan (05/31/2022 12:24 PM EST): Echo in 2013 showed moderate MR. She reports mild dyspnea that she's noticed over the past year. This is not overly bothersome to her- just thought she should mention it . Denies lower extremity edema or orthopnea. Will order repeat echo. History of right breast cancer Overview (04/18/2023): Right-sided breast cancer noted 2016, status post right-sided lumpectomy no radiation or chemo. Resolved Problems Problem Noted Date Diagnosed Date Resolved Date Impacted cerumen of both ears 05/23/2022 10/29/2022 Encounters Date Type Department Care Team Description 02/11/2025 Telephone [facility] Internal Medicine [address] [place] [address] Seth Khan MD Medication Refill 01/10/2025 Refill [facility] Internal Medicine [address] [facility] [place] [address] Seth Khan MD Med Change Request 12/19/2024 1:30 PM EDT Office Visit [facility] Internal Medicine [address] [facility] [address] Seth Khan MD Paroxysmal atrial fibrillation (Primary Dx); RLS (restless legs syndrome); Acute on chronic diastolic congestive heart failure from Last 3 Months Immunizations Immunization Administration Dates Next Due COVID-19 (Pre-04/11) Pfizer Vaccine, mRNA, PF 08/26/2020,08/04/2020 INFLUENZA, SPLIT VIRUS, TRIV ALENT W/ PRESERVATIVE IM 04/29/2020,05/30/2019,04/10/2018,04/13,04/14/2016,05/20/2015,03/07/2014 ,04/11/2013,04/08/2010,04/18/2009,05/20 Influenza High-Dose Quadriva lent Preservative Free IM 04/18/2023,05/18/2022 Influenza High-Dose Trivalen t Preservative Free IM 04/20/2024 Influenza, Unspecified Formulation 04/13/2021 Pneumococcal conjugate PCV13 08/16/2014 Pneumococcal polysaccharide PPSV23 07/23/2008 Td (adult),2 Lf Tetanus Toxo id, PF, Adsorbed 07/02/2010 Family History Medical History Relation Comments CV disease Father CV disease Mother CV disease Sibling Relation Status Comments Daughter Alive Father Mother Sibling Social History Tobacco Use Types Packs/Day Years Used Date Smoking Tobacco: Former Cigarettes 0.3 10 1 961 - 1970 Smokeless Tobacco: Never Tobacco Cessation:Counseling Given: Not Answered Comments:in 20's to early 30's, few cigarettes daily Alcohol Use Standard Drinks/Week [...] with a working camera? Not on file Intimate Partner Violence Answer Date R ecorded Denied Basic Needs Not on file 04/20/2024 In the past 12 months have y ou been in a relationship with a person who hurts, threatens, or tries to control you? No 04/20/2024 Worried food would run out Not on file 04/20 In the past 12 months have y ou been in a relationship with a person who hurts, threatens, or tries to control you? No 04/20/2024 Comments Unknown Sex and Gender Information Value Date Recorded Sex Assigned at Not on file Legal Sex Female 10:38 PM EDT Gender Identity Not on file Sexual Orientation Not on file Last Filed Vital Signs Vital Sign Reading Time Taken Comments Blood Pressure 136/78 12/19/2024 2:09 PM EDT Pulse 55 12/19/2024 2:09 PM EDT Temperature 36.3 C (97.4 F) 12/19/2024 1:18 PM EDT Respiratory Rate 16 12/19/2024 1:18 PM EDT Oxygen Saturation 92% 12/19/2024 1:18 PM EDT Inhaled Oxygen Concentration - - Weight 82.6 kg (182 lb) 12/19/2024 1:18 PM EDT Height 170.2 cm (5' 7.01 ) 12/19/2024 1:18 PM ED T Body Mass Index 28.5 12/19/2024 1:18 PM EDT Plan of Treatment Upcoming Encounters Date Type Department Care Team (Late st Contact Info) Description 04/08/2025 2:00 PM EDT Office Visit [facility] [address] [place] [address] 3rd Floor, [address] [place], [place] [id number] Kendell Jones MD [address] [facility], [address] [place] [address] [phone] 04/18/2025 11:00 AM EDT Office Visit [facility] Internal Medicine [address] [place] [address] Seth Khan MD [address] [place] [address] [email or web address] Health Maintenance Due Date Last Done Comments ZOSTER VACCINES (1 of 2) 09/05/1959 RSV VACCINE (1 - 1-dose 75+ series) 09/05/2015 Adult Td,Tdap Booster 07/02/2020 07/02/2010 INFLUENZA VACCINE (#1) 2025 , 04/18/2023, 04/18/2023, Additional history exists COVID-19 VACCINE ( season) 2025 04/09/2021, 08/26/2020, 08/04/2020 DEPRESSION SCREENING 04/20/2025 04/20/2024 TSH LEVEL 04/20/2025 04/20/2024, 05/3 06/2022, 05/18/2022 BLOOD PRESSURE 06/21/2025 12/19/2024 ALT LEVEL (ALANINE AMINOTRANSFERASE) 10/08/2025 10/08/2024, 05/06/2021 CREATININE LEVEL 10/08/2025 10/08/2024, , 02/02/2023, Additional history exists PNEUMOCOCCAL VACCINES (50+ years) Completed 08/16/2014, 07/23/2008 OSTEOPOROSIS SCREENING INITIAL (ONE-TIME) Completed 04/15/2023, 10/15/2022 HEPATITIS A VACCINES Aged Out No long er eligible based on patient's age to complete this topic HIB VACCINES Aged Out No longer eligi ble based on patient's age to complete this topic MENINGOCOCCAL VACCINES (ACWY) Aged Out No longer eligible based on patient's age to complete this topic MENINGOCOCCAL VACCINES (B) Aged Out N o longer eligible based on patient's age to complete this topic Medical Devices Not on file Procedures Procedure Name Priority Date/Time Associated Diagnosis Comments BASIC METABOLIC PANEL Routine 10/08/2024 11:24 AM EDT Primary hypertension ALANINE AMINOTRANSFERASE (ALT) Routine 10/08/2024 11:24 AM EDT Mixed hyperlipidemia TSH WITH REFLEX Routine 04/20/2024 11:28 AM EDT Amiodarone-induced thyroiditis HM DEXA SCAN Routine 04/15/2023 from Last 3 Months or Most Recently Relevant to Health Maintenance Results * Alanine aminotransferase (ALT) (10/08/2024 11:24 AM EDT) ALT 13 0 - 40 U/L [facility] Blood 10/08/2024 11:2 4 AM EDT 10/08/2024 11:27 AM EDT us Seth Khan MD LAB BLOOD ORDERABLES Final Resul t [facility] [address] [place] [address] * (ABNORMAL) Basic metabolic panel (10/08/2024 11:24 AM EDT) SODIUM 142 133 - 146 mmol/L [facility] CHLORIDE 101 96 - 108 mmol/L [facility] POTASSIUM 4.1 3.3 - 5.1 mmol/L [facility] CO2 29 21 - 35 mmol/L [facility] BUN 33(H) 6 - 19 mg/dL [facility] CREATININE 1.00 0.5 - 1.5 mg/dL [facility] GLUCOSE 109(H) 70 - 99 mg/dL [facility] CALCIUM 9.4 8.4 - 10.3 mg/dL [facility] EGFR 56(L) >59 mL/min/1.7 3m2 [facility] Comment:Estimated glomerular filtration rate calculated using the CKD-EPI refit equation. ANION GAP 16 10 - 20 mmol/L [facility] Blood 10/08/2024 11:2 4 AM EDT 10/08/2024 11:27 AM EDT us Seth Khan MD LAB BLOOD ORDERABLES Final Resul t Performing Organization Address City/[facility]/ZIP Co de Phone Number [address] [address] * TSH with reflex (04/20/2024 11:28 AM EDT) TSH 1.18 0.27 - 4.20 uIU/mL [facility] Blood 04/20/2024 11:2 8 AM EDT 04/20/2024 11:32 AM EDT us Seth Khan MD LAB BLOOD ORDERABLES Final Resul t [address] [address] * DEXA SCAN (04/15/2023) us Seth Khan MD HEALTH MAINTENANCE Edited Result - Final from Last 3 Months or Most Recently Relevant to Health Maintenance Insurance MEDICARE PART A & B Cognitive Code CROSS MEDEX SUPPLEMENT MEDICARE PART A & B [employer] MED[employer] SUPPLEMENT MEDICARE PART A & B [employer] MED[employer] SUPPLEMENT MEDICARE PART A & B [employer] MEDEX SUPPLEMENT MEDICARE PART A & B [facility] MEDEX SUPPLEMENT MEDICARE PART A & B [employer] MEDEX SUPPLEMENT MEDICARE PART A & B [employer] MED[employer] SUPPLEMENT MEDICARE PART A & B Cognitive Code CROSS MEDEX SUPPLEMENT MEDICARE PART A & B [employer] MEDEX SUPPLEMENT Advance Directives For more information, please contact: [phone] (9AM - 5PM [facility], Tuesday-Tuesday) Documents on File Type Date Recorded 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 [employer] Care Teams Rolled Gold Plater Relationship Specialty Start Date End Date Seth Khan MD [address] [place] [address] PCP - General Internal Medicine 04/01/23 Chetan Diaz MD [address] [place] [address] 4B_OB/[employer] [place] [address] Obstetrics and Gynecology 01/24/19 Jayne Quiroz PA-C [address] [place] [id number] Physician Corrosion Control Engineer Hematology and Oncology 05/28/21 Seth Khan MD [address] [place] [address] Insurance Assigned Provider 09/24/23 Additional Source Comments The information contained in this document represents components of the legal health record. It is not the complete legal health record.[facility]
== END 2025-03-06 12:09 | disposition home or self-care (01) ==
PROVIDERS: PCP Internal Medicine; Visit Provider Orthopaedic Surgery
DX: M17.11 Unilateral primary osteoarthritis, right knee (principal); M25.561 Pain in right knee
CPT/HCPCS: 20610; 99213

== ENCOUNTER → 2025-03-06 11:18 | Outpatient (BNVA) | payer MEDICARE, SELFPAY | PROVIDERS: PCP Internal Medicine; Visit Provider Orthopaedic Surgery | DX: M17.11 Unilateral primary osteoarthritis, right knee (principal); M25.561 Pain in right knee | CPT/HCPCS: 20610; 99212; J1010; J2003 ==

== ENCOUNTER 2025-03-31 11:56 | Inpatient (IN) | payer MEDICARE, SELFPAY ==
--- NOTE | ~2025-03-31 | XR_ITS ---
CLINICAL HISTORY: Fluid overload versus pneumonia. 1 view chest x-ray Comparison: CR/NM/SR - XR CHEST 2 VIEWS - 06/25/23 17:39 EST Findings: No consolidation or effusion. Heart size is normal. No acute fracture. IMPRESSION: 1. No acute findings. This document has been electronically signed by: Ricardo Pool MD on 03/31/2025 14:05:06
--- NOTE | 2025-03-31 12:00 | ECG_ITS ---
Test Reason : A-FIB Blood Pressure : */* mmHG Vent. Rate : 105 BPM Atrial Rate : * BPM P-R Int : * ms QRS Dur : 112 ms QT Int : 358 ms P-R-T Axes : * -46 47 degrees QTcB Int : 473 ms Atrial fibrillation with rapid ventricular response Left axis deviation Low voltage QRS Inferior infarct Cannot rule out Anterior infarct Abnormal ECG When compared with ECG of 21-Nov-2024 11:11, Significant changes have occurred Referred By: Aicha Flores Electronically Signed By: Vin Sow
[2025-03-31 12:12] VITALS: BP 140/100; BP 161/88; PULSE 102; PULSE 116; RESP 13; TEMP 36.6; O2SAT 97; BMI 28.5
[2025-03-31 12:22] VITALS: BP 161/88; PULSE 102; RESP 13; TEMP 36.6; O2SAT 97
--- NOTE | 2025-03-31 12:23 | PC.NURSE ---
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
[2025-03-31 12:33] LABS: MANUAL DIFF FLAG NO
[2025-03-31 12:34] LABS: Hematocrit 34.3 % (37.0-47.0); Hemoglobin 11.4 g/dl (12.0-16.0); Imm Gran Abs Auto 0.01 X10*3/uL (0.00-0.03); Imm Gran Pct Auto 0.2 % (0.0-0.4); Lymphocytes Absolute Auto 1.2 X10*3/uL (1.2-4.9); Mean Corpuscular HGB Conc 33.2 g/dl (31.0-35.0); Mean Corpuscular Hemoglobin 31.3 pg (27.0-33.0); Mean Corpuscular Volume 94.2 fL (80.0-98.0); NRBC Abs Auto 0.000 X10*3/uL (0.0-0.012); NRBC Pct Auto 0.0 /100WBC (0.0-0.2); Platelet Count 210 X10*3/uL (160-400); Red Blood Count 3.64 X10*6/uL (4.20-5.50); White Blood Count 5.6 X10*3/uL (4.8-10.8)
[2025-03-31 12:40] LABS: INTERNATIONAL NORM RATIO 1.6 (0.9-1.1); Prothrombin Time 18.0 SEC (10.9-12.4)
--- OUTSIDE RECORDS SUMMARY | 2025-03-31 12:48 | XMS_ITS | Encounter Summary ---
Author Organization [facility] Address [address] [place] [address] Phone Care Team Providers Care Marking Machine Tender Name Role Phone Chetan Diaz MD Unavailable Jayne Quiroz PA-C Unavailable [phone] Mil Saravia MD Unavailable [phone] Seth Khan MD Primary Care Provider [phone] Seth Khan MD Unavailable Encounter Details Date Type Department Care Team (Late st Contact Info) Description 06/07/2023 Procedure Pass Echo Lab [address] [place] [address] Social History Tobacco Use Types [...] Description 04/08/2025 2:00 PM EDT Office Visit [facility] [address] Floor, [address] [place] [address] Kendell Jones MD 22 [facility], [address] [place] [address] [email or web address] 04/18/2025 11:00 AM EDT Office Visit [facility] Internal Medicine [address] [place] [address] Seth Khan MD [address] [place] [address] [email or web address] documented as of this encounter Visit Diagnoses Not on filedocumented in this encounter Additional Health Concerns Infection Onset Date Last Indicated Resolved Time COVID-19 06/17/2024 06/17/2024 07/08/2024 1:21 AM EST Assessment Noted Time PHQ-2 Depression Total Score: 0 10/16/19 11:25 AM EDT documented as of this encounter Care Teams Marking Machine Tender Relationship Specialty Start Date End Date Seth Khan MD [address] [place] [address] PCP - General Internal Medicine 04/01/23 Chetan Diaz MD [address] [place] [address] 4B_OB/DIRECTIONAL [place] [address] Obstetrics and Gynecology 01/24/19 Jayne Quiroz PA-C [address] [place] [address] Physician Planer Operator / Grader Hematology and Oncology 05/28/21 Mil Saravia MD [address] [place] [address] [email or web address] Insurance Assigned Provider 09/25/22 09/24/23 Seth Khan MD [address] [place] [address] Insurance Assigned Provider 09/24/23 documented as of this encounter Additional Source Comments The information contained in this document represents components of the legal health record. It is not the complete legal health record.[facility]
--- OUTSIDE RECORDS SUMMARY | 2025-03-31 12:48 | XMS_ITS | Clinical Summary ---
Author Organization Located Within [facility] Address [address] [place] [address] Phone Care Team Providers Care Retail Store Assistant Name Role Phone Chetan Diaz MD Unavailable [phone] Jayne Quiroz PA-C Unavailable [phone] Seth Khan MD Primary Care Provider [phone] Seth Khan MD Unavailable Allergies No known active allergies Medications calcium carb/vit D3/minerals (CALCIUM-VITAM IN D ORAL) Take 600 mg by mouth daily. Active multivitamins capsule Take by mouth. Active acetaminophen (TYLENOL) 325 mg tablet Take 975 mg by mouth every 6 (six) hours as needed. Active vitamins A,C,E-zinc-junior copywriter per (PRESERVISION AREDS) [phone] pyoo-pe-twfl Cap Take 1 capsule by mouth 2 (two) times a day with meals. Active traMADoL (ULTRAM) 50 mg tablet Take 1 tablet by mouth every 8 (eight) hours as needed. Active metoprolol tartrate (LOPRESSOR) 25 MG tablet Take 1 tablet (25 mg total) by mouth 2 (two) times a day. 180 tablet 3 5 Active amiodarone (PACERONE) 200 MG tablet Take 1 tablet (200 mg total) by mouth daily. 90 tablet 3 5 Active furosemide (LASIX) 20 MG tablet TAKE 2 TABLETS BY MOUTH TWICE A DAY 360 tablet 3 5 Active ENTRESTO 97-103 mg per tablet TAKE 1 TABLET BY MOUTH TWICE A DAY 180 tablet 3 5 Active rOPINIRole (REQUIP) 0.5 MG tabletIndicati ons:RLS (restless legs syndrome) TAKE 1 TABLET (0.5 MG TOTAL) BY MOUTH NIGHTLY AT BEDTIME 90 tablet 1 5 Active pravastatin (PRAVACHOL) 40 MG tabletIndicati ons:Medication refill TAKE 1 TABLET BY MOUTH EVERY DAY 90 tablet 3 5 Active ELIQUIS 5 mg tabletIndicati ons:Medication refill TAKE 1 TABLET BY MOUTH TWICE A DAY 180 tablet 2 5 Active ELIQUIS 5 mg tabletIndicati ons:Medication refill take 1 tablet by mouth twice a day 180 tablet 2 4 03/18/20 25 Discontinued pravastatin (PRAVACHOL) 40 MG tabletIndicati ons:Medication refill take 1 tablet by mouth every day 90 tablet 3 4 03/18/20 25 Discontinued Active Problems Problem Noted Date Diagnosed Date [...] Plan (10/29/2022 9:50 PM EDT): Consider trazodone, Teresa would be most comfortable if we consult [...] that occurred on 03/30/2021. She presented to [facility] with right leg pain as well as significant back pain. CT scan showed enlargement of the right psoas muscle with an area of increased attenuation. There was no trauma previous to this hematoma occurring. She was discharged from [facility] on aspirin 325 mg daily and her [...] PM EST): No clinical episodes. Following my snf she will follow up with my colleague [...] this lab order be faxed to the [facility], which I have done. Continue pravastatin in the interim. Assessment & Plan (05/29/2021 3:12 PM EST): Patient tells me that her cholesterol was checked annually by Dr Moses. Will order fasting lipid panel to be done prior to her next follow up appointment. She has asked that this lab order be faxed to the [facility], which I have done. Continue pravastatin in [...] Encounters Date Type Department Care Team Description 03/16/2025 Refill [facility] [address], [address] [place] [address] Kendell Jones MD Medication Refill 03/15/2025 Refill [facility] [address], [address] [place] [address] Bj Lamb MD Medication Refill 02/11/2025 Telephone [facility] Internal Medicine [address] [place] [address] Seth Khan MD Medication Refill 01/10/2025 Refill [facility] Internal Medicine [address] [place] [address] Seth Khan MD Med Change Request from Last 3 Months Immunizations Immunization Administration [...] Former Cigarettes 0.3 10 1 961 - 1971 Smokeless Tobacco: Never Tobacco Cessation:Counseling Given: Not [...] Description 04/08/2025 2:00 PM EDT Office Visit [facility] [address] [facility] 3rd Floor, [address] [place] [address] Kendell Jones MD 22 [facility], [address] [place] [address] [email or web address] 04/18/2025 11:00 AM EDT Office Visit [facility] Internal Medicine [address] [place] [address] Seth Khan MD [address] [place] [address] [email or web address] Health Maintenance Due Date Last Done Comments [...] EDT) ALT 13 0 - 40 U/L [facility] Blood 10/08/2024 11:2 4 AM EDT 10/08/2024 11:27 AM EDT us Seth Khan MD LAB BLOOD ORDERABLES Final Resul t Performing Organization Address City/[facility] Co de Phone Number [address] [address] * (ABNORMAL) Basic metabolic panel (10/08/2024 11:24 AM EDT) SODIUM 142 133 - 146 mmol/L [facility] CHLORIDE 101 96 - 108 mmol/L [facility] POTASSIUM 4.1 3.3 - 5.1 mmol/L [facility] CO2 29 21 - 35 mmol/L [facility] BUN 33(H) 6 - 19 mg/dL [facility] CREATININE 1.00 0.5 - 1.5 mg/dL [facility] GLUCOSE 109(H) 70 - 99 mg/dL [facility] CALCIUM 9.4 8.4 - 10.3 mg/dL [facility] EGFR 56(L) >59 mL/min/1.7 3m2 [facility] Comment:Estimated glomerular filtration rate calculated using the CKD-EPI refit equation. ANION GAP 16 10 - 20 mmol/L [facility] Blood 10/08/2024 11:2 4 AM EDT 10/08/2024 11:27 AM EDT us Seth Khan MD LAB BLOOD ORDERABLES Final Resul t Performing Organization Address [facility] Co de Phone Number [address] [address] * TSH with reflex (04/20/2024 11:28 AM EDT) TSH 1.18 0.27 - 4.20 uIU/mL [facility] Blood 04/20/2024 11:2 8 AM EDT 04/20/2024 11:32 AM EDT us Seth Khan MD LAB BLOOD ORDERABLES Final Resul t Performing Organization Address [facility] Co de Phone Number [address] [address] * HM DEXA SCAN (04/15/2023) Seth Khan MD HEALTH MAINTENANCE Edited Result - Final from Last 3 Months or Most Recently Relevant to Health Maintenance Insurance MEDICARE PART A & B [employer] SUPPLEMENT MEDICARE PART A & B [employer] SUPPLEMENT MEDICARE PART A & B [facility] SUPPLEMENT MEDICARE PART A & B [employer] SUPPLEMENT MEDICARE PART A & B [employer] SUPPLEMENT MEDICARE PART A & B Member Subscriber Plan / Payer (Ef fective 2005-Present) Name:Swetha Ramirez Member ID:[id number] Relation to Subscriber:Self Name:Swetha Ramirez Subscriber ID:[id number] Payer ID:[id number] Group ID:Not on file Type:Medicare Address: [employer] [address] Index [employer] SUPPLEMENT MEDICARE PART A & B [employer] SUPPLEMENT MEDICARE PART A & B [employer] MEDEX SUPPLEMENT MEDICARE PART A & B [employer] MEDEX SUPPLEMENT Advance Directives For more information, please contact: [phone] (9AM - 5PM [place], Tuesday-Tuesday) Documents on File Type Date Recorded Patient [address] [address] Magistrate Expl anation MOLST 05/06/2021 [employer] Care Teams Retail Store Assistant Relationship Specialty Start Date End Date Seth Khan MD [address] [place] [address] PCP - General Internal Medicine 04/01/23 Chetan Diaz MD [address] [place] [address] 4B_OB/[place] [address] Obstetrics and Gynecology 01/24/19 Jayne Quiroz PA-C [address] [place] [address] Physician Supervisor Of Guidance And Testing Hematology and Oncology 05/28/21 Seth Khan MD [address] [place] [address] Insurance Assigned Provider 09/24/23 Additional Source Comments The information contained in this document represents components of the legal health record. It is not the complete legal health record.[facility]
--- OUTSIDE RECORDS SUMMARY | 2025-03-31 12:48 | XMS_ITS | Data Portability ---
Author Organization [place] [facility] [place] Address [address] [place] [address] Care Team Providers Care Machine Bender Name Role Phone MARTA REES Primary Care Provider Assessment Encounter Date Assessment Date Assessment LastModified by Organization Details LastModified Time 11/10/2022 11/10/2022 82-year-old female with chronic right shoulder pain with findings consistent with the following; 1. Indirect care and treatment in conjunction with Dr. Lorenzana Additional treatment plan discussed with the patient in detail included the following; - Provider focused nonsteroidal anti-inflammator y regimen (discussed were the pros, cons, benefits and risks as well as any black box warnings) in patients over 60 years old they should be very cautious in taking these medications due to potential decreased kidney function and or elevated blood pressure. - Analgesic pain medication for pain suppression (discussed were the pros, cons, benefits and risks as well as any black box warnings) - The use of topical pain relieving medication were discussed - The use of ice to decrease inflammation and pain - The use of assistive ambulatory devices for ambulation and fall prevention - Formal specific guided physical therapy program I reviewed my findings at length with the patient today. We discussed the nature and etiology of this problem along with current treatment options. We discussed the expected course and outcomes and what to expect. We also discussed risks and benefits. All of their questions were answered today, and there was exhibited understanding and comprehension of all that was discussed. Time Spent: 10 minutes were spent reviewing previous imaging and charting. 10 minutes were spent obtaining patient history. 5 minutes were spent on physical exam. 5minutes were spent explaining diagnosis and assessment. Today's documentation was made using voice recognition software. This note may contain grammatical errors secondary to the software. [email or web address] Not available 11/10/2022 12:31:43 Plan of Treatment Reminders Order Date Submit Date Provider Last Modified By Organization Details Last Modified Time Details Appointments None recorded. Lab None recorded. Referral None recorded. Procedures None recorded. Surgeries None recorded. Imaging XR, hip, unilateral, 2 or 3 view 2022 023 [email or web address] [facility], [address], [place], [address], 16:14:15 XR, shoulder, 2 or more view 2022 023 [email or web address] [facility], [address], [place], [address], 16:14:15 Medication Orders Kenalog 40 mg/mL suspension for injection [address]/[facility]armacy #[id number], [address] [place], [address], 15:45:31 lidocaine (PF) 10 mg/mL (1 %) injection solution 2022 023 [id number], [address] [place], [address], 15:45:31 Patient TargetsNo targets recorded. Patient Instructions Encounter Date Encounter Id Patient Instructions Last Modified By Organization Details Last Modified Time 11/10/2022 [id number] You have been provided with a cortisone injection in order to reduce the pain and inflammation that you are experiencing. The injection consists of two medications. Cortisone (an anti-inflammatory that will take 48-72 hours to take effect) and Lidocaine (a numbing agent that will last 2-3 hours). Please note that not everyone will have a lasting response following the injection. PATIENT INSTRUCTIONS Once the Lidocaine wears off, you may have an increase in your pain. I recommend icing the affected area for 20 minutes 3-4 times per day. It is recommended that you refrain from any high level activities using the joint or limb that was injected for approximately 24-48 hours. Normal day-to-day activities are generally not a problem. POSSIBLE SIDE EFFECTS Individuals with dark complexions may experience some skin discoloration locally at the site of the injection. There is the possibility of an increase in discomfort within 48 hours following the injection. This is called megan isabel . To help minimize the chances of this, please see the post-injection instructions above. There is a less than 1% chance of an infection. If you notice any signs of infection (redness, warmth, drainage, fever greater than 100 degrees) please call our office or contact us through the portal YOAN. Not available 11/11/2022 15:45:30 Three-view x-ray right shoulder reveals mild glenohumeral joint space narrowing consistent with arthritis, AC joint space narrowing consistent with arthritis, no acute bony abnormality X-ray of the right hip reveals moderate degenerative change throughout, subchondral sclerosis without acute bony abnormality. There is notable surgical clips within the right pelvis. Not available 11/10/2022 14:18:15 Reason for Referral None Reported. Problems Name Problem SNOMED Code Status Onset Date Resolution Date Notes Provider Name and Address Organization Details Recorded Time Pain of left calf 76342333991 98357 Active 2018 Pain of left calf Not Available [facility] 5 23:22:36 Arthritis of left knee joint 81365814599 95300 Active 2018 Arthritis of left knee Not Available [facility] 5 23:22:36 Primary gonarthro sis, bilateral 569946217 Active 2019 Primary osteoarth ritis of both knees Not Available [facility] 5 23:22:37 Closed fracture of scaphoid bone 71950240 Active 2020 Closed nondispla jasmina fracture of middle third of scaphoid of left wrist with delayed healing Not Available [facility] 5 23:22:36 Pain of right shoulder joint 37480214966 859794 Active 2022 YARON ECKERT PA-C [address] [facility],[address], [place], [place], [address] , [place] - [facility] 3 15:44:37 Osteoarth ritis of joint of right shoulder region 71802410441 9100 Active 2022 YARON ECKERT PA-C [address], [place], [address] , [place] - [facility], [facility] 3 15:44:44 Osteoarth ritis of right hip joint 12543736424 9107 Active 2022 YARON ECKERT PA-C [address], [place], [address] , [place] - [facility], [facility] 3 15:44:50 Problem Notes None recorded. Procedures Surgical History Date Name Laterality Status Provider Name and Address Organization Details Recorded Time 3 Shoulder Joint/Bursa Asp & Inj completed YARON ECKERT PA-C [address], [place], [address], [place] - [facility], [facility] 11/11/2022 15:43:40 Imaging Results None recorded. Procedure Notes None recorded. Medical Equipment None Reported. Medications Name Sig Start Date Stop Date Status Note LastModified by Organization Details LastModified Time anastrozole 1 mg tablet Take 1 mg by mouth daily. 2017 active Not Available Not Available Not Avai lable famotidine 10 mg tablet Take 10 mg by mouth 2 (two) times a day as needed. active Not Available Not Available No t Available aspirin 325 mg tablet Take 81 mg by mouth. active Not Available Not Available No t Available pravastatin 40 mg tablet TAKE 1 TABLET BY MOUTH EVERY DAY active Not Available Not Available No t Available tramadol 50 mg tablet Take 1 tab every 8 hours as needed for pain 2021 active Not Available Not Available Not Avai lable Kenalog 40 mg/mL suspension for injection Take 1 mL by injection route. 2022 active Not Available Not Available Not Avai lable baclofen 10 mg tablet Take 5 mg by mouth daily as needed. active Not Available Not Available No t Available methylpredn isolone acetate 40 mg/mL suspension for injection 08/24 completed Not Available Not Available Not Available flecainide 100 mg tablet TAKE 1 TABLET BY MOUTH TWICE A DAY active Not Available Not Available No t Available pravastatin 20 mg tablet Take 20 mg by mouth daily. 2017 active Not Available Not Available Not Avai lable furosemide 20 mg tablet Take 20 mg by mouth. active Not Available Not Available No t Available atenolol 50 mg tablet Take 50 mg by mouth. active Not Available Not Available No t Available melatonin 1 mg tablet Take 1 mg by mouth every night at bedtime. active Not Available Not Available No t Available lidocaine (PF) 10 mg/mL (1 %) injection solution Take 2 mL by injection route. 2022 active Not Available Not Available Not Avai lable Xarelto 20 mg tablet Take 20 mg by mouth daily. with food 05/25 completed Not Available Not Available Not Available Eliquis 5 mg tablet TAKE 1 TABLET BY MOUTH TWICE A DAY active Not Available Not Available No t Available Vitals None Recorded Social History None recorded. Functional Status None recorded. Mental Status None recorded. Family History Nothing Reported. Medical History No medical history recorded. Gynecological HistoryNo gynecological history recorded. Obstetrics History GPAL:G 0 P 0 0 0 0 Past Encounters Encounter ID Performer Location Encounter Start Date Encounter Closed Date Diagnosis/Indication Diagnosis SNOMED-CT Code Diagnosis ICD10 Code Diagnosis IMO Codes Diagnosis Note [id number] NILESH VITAL [facility] [address] [facility] [address] [place] [address] 11/10/2022 13:40:15 11/10/2022 14:37:28 Pain of right shoulder joint [id number] [id number] M25.511 This is a 82-year-ol d female accompanie d by family at today's visit with chronic right shoulder pain due to arthritis and likely chronic longstandi ng rotator cuff tearing. I had discussion with the patient regarding management including further work-up. She is interested in cortisone injections which have worked in the past. Verbal consent was obtained. Cortisone injection of the right glenohumer al joint was then performed. She tolerated the procedure well with notable improvemen t in her symptoms. We will follow-up in 3 months time for repeat clinical exam. Should her symptoms not improve or worsen she should contact my office. Regarding her right hip though she does show evidence of osteoarthr itis she is currently asymptomat ic we will hold off on any interventi on at this time. Patient agrees with the above-note d plan. Indirect care and treatment in conjunctio n with Dr. Lorenzana Additional treatment plan discussed with the patient in detail included the following; - Provider focused nonsteroid al anti-infla mmatory regimen (discussed were the pros, cons, benefits and risks as well as any black box warnings) in patients over 60 years old they should be very cautious in taking these medication s due to potential decreased kidney function and or elevated blood pressure. - Analgesic pain medication for pain suppressio n (discussed were the pros, cons, benefits and risks as well as any black box warnings) - The use of topical pain relieving medication were discussed - The use of ice to decrease inflammati on and pain - The use of assistive ambulatory devices for ambulation and fall prevention - Formal specific guided physical therapy program I reviewed my findings at length with the patient today. We discussed the nature and etiology of this problem along with current treatment options.We discussed the expected course and outcomes and what to expect. We also discussed risks and benefits.A ll of their questions were answered today, and there was exhibited understand ing and comprehens ion of all that was discussed. Time Spent:10 minutes were spent reviewing previous imaging and charting. 10 minutes were spent obtaining patient history. 5 minutes were spent on physical exam. 5 minutes were spent explaining diagnosis and assessment . Today's documentat ion was made using voice Snapchato n software. This note may contain grammatica l errors secondary to the software. Pain of ri ght hip joint [id number] 74646 M25.551 Osteoarthr itis of joint of right shoulder region 4656999388 80927 M19.011 Osteoarthr itis of right hip joint 0359434459 56395 M16.11 Health Concerns Section Related Observation LastModified by Organization Detai ls LastModified Time None Recorded Concern Status LastModified by Organization Details LastModified Time None Recorded Advance Directives Directive None Recorded Payers Insurance Date Sequence Insurance Name Policy Number Policy Mancuso Covered Member ID Mancuso Member ID Guarantor Name 11/08/2022 1 [place] [employer] Swetha May [id number] Swetha May 11/08/2022 2 [place] [id number] Swetha May [id number] Swetha May Notes Date Note Type Note Provider Name and Address Organization Details Recorded Time 11/10/2022 text/html 82-year-old female here for follow-up evaluation of chronic right shoulder pain. Last seen and evaluated for this problem on 11/10/2021. She states the pain is overlying her shoulder gets worse with certain movements. She states cortisone injections helped. Here for evaluation treatment. Regarding her right hip intermittent discomfort vague in nature groin versus posterior buttock versus side. States that she was diagnosed with a hematoma quite a few months back however this resolved. YARON ECKERT PA-C [address] [place] [address], [place], [address], [place] - [facility] 11/11/2022 15:46:06 OBGyn Episode No OBEpisode recorded.
--- OUTSIDE RECORDS SUMMARY | 2025-03-31 12:48 | XMS_ITS | Clinical Summary ---
Author Organization [facility] Address [address] [place] [address] Care Team Providers Care Horse Farm Manager Name Role Phone Jena Lewis MD Primary [...] age to complete this topic Care Teams Horse Farm Manager Relationship Specialty Start Date End Date Jena Lewis MD [address] [place] [address] PCP - General Internal Medicine 12/07/17
[2025-03-31 12:54] LABS: Alanine Aminotransferase 15 U/L (0-31); Albumin Level 4.4 g/dL (3.5-5.0); Alkaline Phosphatase 81 U/L (39-117); Anion Gap 15 (12-20); Aspartate Amino Transferase 21 U/L (5-31); Blood Urea Nitrogen 27 mg/dL (9-16); Calcium 9.0 mg/dL (8.4-10.2); Carbon Dioxide 29 mmol/L (22-29); Chloride 105 mmol/L (96-108); Creatinine Clr Calc Pharmacy 37.6; Estimated Glomerular Filt Rate 42; Magnesium 1.9 mg/dL (1.6-2.6); Partial Thromboplastin Time 35.3 SEC (26.7-34.1); Potassium 3.6 mmol/L (3.3-5.1); Sodium 145 mmol/L (135-145); Total Protein 6.5 g/dL (6.5-8.0)
[2025-03-31 12:59] LABS: NT Pro B Type Natriuretic Pept 8005.4 pg/mL (<300); Troponin-I High Sensitivity 37.9 ng/L (<3.5-17.0)
[2025-03-31 13:08] LABS: COVID-19 Test Negative (Negative); IDNOW Serial# 58CA691E
[2025-03-31 13:09] LABS: IDNOW Serial# 55D5AD1C; Influenza B2 Negative (Negative)
--- NOTE | 2025-03-31 13:26 | ED.GENADULT ---
HPI - General Adult General Chief complaint: Arrhythmia/Palpitations Stated complaint: AFIB Time Seen by Provider: 03/31/25 12:21 Source: patient Mode of arrival: ambulatory Limitations: no limitations History of Present Illness ED Provider: Aung Chávez HPI narrative: 84-year-old female history of CHF, AFib, presents to ED for palpitation and not feeling well. Patient denies any increased swelling of legs or pleurisy. Patient denies any crushing chest pain. Patient denies any fever or chills. Patient is on metoprolol and Lasix and took her meds. Patient denies any slurred speech, facial droop or paralysis of extremities. Patient states history of cauda invert twice for AFib RVR Related Data Home Medications ?Medication ?Instructions ?Recorded ?Confirmed pravastatin 40 mg tablet 40 mg PO BEDTIME 02/11/21 03/31/25 apixaban 5 mg tablet (Eliquis) 5 mg PO BID 04/08/22 03/31/25 furosemide 20 mg tablet 40 mg PO BID 06/26/23 03/31/25 ydizwvir-givclck-ostw-lutein tablet 1 tab PO DAILY 11/20/24 03/31/25 sacubitril 97 mg-valsartan 103 mg 1 tab PO BID 11/20/24 03/31/25 tablet (Entresto) vitamins A,C,R-nbjp-vzjvre 2,148 2 tab PO DAILY 11/20/24 03/31/25 mcg-113 mg-45 mg-17.4 mg tablet (PreserVision AREDS) ropinirole 0.5 mg tablet 0.5 mg PO BEDTIME 03/06/25 03/31/25 amiodarone 200 mg tablet 200 mg PO DAILY 03/31/25 03/31/25 Previous Rx's ?Medication ?Instructions ?Recorded metoprolol tartrate 25 mg tablet 25 mg PO BID #60 tabs 06/29/23 Allergies Allergy/AdvReac Type Severity Reaction Status Date / Time No Known Allergies Allergy Verified 03/31/25 12:13 Review of Systems Review of Systems: Palpitation Yes all other systems are reviewed and are negative [facility] Past Medical History Medical History Arthritis of right knee CHF (congestive heart failure) Tachycardia Afib Social History Social History Household Members: Family Housing: House Do you presently have visiting nurse or other home services: No Alcohol intake: never Comment: pt gait steady Patient Tobacco Use Status: Never used Tobacco Smoked in Last 30 Days: No e-Cigarette/Vaping Use: Never Used Use of substances other than those prescribed or required for medical reasons: No Currently Displaying Signs/Symptoms of Drug Intoxication Withdrawal: No Advance Directives: No Advance Directives Information Provided: Yes Do you have a plan to hurt others: No Plan service: No Current occupational status: 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 Physical Exam ED Vital Signs: Vital Signs - 24 hr 03/31/25 12:12 03/31/25 12:22 03/31/25 14:24 Temperature 97.8 F 97.8 F 98.1 F Pulse Rate 102 H 102 H 93 Respiratory Rate 13 13 15 Blood Pressure 161/88 H 161/88 H 158/79 H Pulse Oximetry 97 97 97 Oxygen Delivery Method Room Air Room Air Room Air BMI result Body Mass Index 28.5 Const General: cooperative, healthy appearing, comfortable, no acute distress, well developed, alert, awake and Physically active Orientation/consciousness: patient oriented x3 HENMT Head: Yes normal to inspection, Yes No palpable skull fracture present, Yes normocephalic and Yes atraumatic Eyes General: appearance normal, both eyes and all related structures Neck Neck: Yes normal visual inspection, Yes full ROM, Yes no lymphadenopathy, Yes no meningeal signs, Yes trachea midline, Yes supple, No anterior neck swelling and No tender Chest Chest palpation & inspection: normal inspection of the chest and normal palpation of entire chest wall Resp Effort & Inspection: normal respiratory effort and able to speak in complete sentences Auscultation: clear to auscultation bilaterally Cardio Jugular venous distension: no JVD Heart sounds: S1 normal heart sound present and S2 normal heart sound present GI Inspection: Yes normal to inspection Palpation (GI): Soft to palpation, not firm, nontender, no guarding and not rigid General: Yes no CVA tenderness Back/Spine/Pelvis Back: no CVA tenderness and No back tenderness Skin General skin exam: no rashes or lesions noted, elasticity normal and turgor normal Neuro General: patient oriented x3, gait normal, tone normal, moves all extremities, Normal light touch and pain sensation, no meningeal signs, no focal motor deficits, CN's II-XI intact bilaterally and normal sensation to monofilament Extrem Other: Chronic bilateral leg swelling as per patient. No pitting edema General: Yes normal to inspection, Yes full ROM and Yes capillary refill normal Psych Appearance: grossly normal, well kempt and not disheveled Medications Administered Generic Name Dose Route Start Last Admin Trade Name Freq PRN Reason Stop Dose Admin Amiodarone HCl 200 mg 04/01/25 09:00 04/01/25 07:50 Amiodarone Hcl 200 Mg Tablet PO 200 mg DAILY VIVIEN Administration Apixaban 5 mg 03/31/25 21:00 04/01/25 20:49 Apixaban 5 Mg Tablet PO 5 mg BID VIVIEN Administration Furosemide 40 mg 03/31/25 21:00 04/01/25 20:49 Furosemide 40 Mg Tablet PO 40 mg BID VIVIEN Administration Protocol Melatonin 6 mg 03/31/25 14:50 03/31/25 21:18 Melatonin 3 Mg Tablet PO 6 mg BEDTIME PRN Administration Insomnia Metoprolol Tartrate 25 mg 03/31/25 21:00 04/01/25 20:49 Metoprolol Tartrate 25 Mg Tablet PO 25 mg BID VIVIEN Administration Protocol Multivitamins/Vitamin C 2 tab 04/01/25 09:00 04/01/25 07:50 Multivitamin Tablet PO 2 tab DAILY VIVIEN Administration Pravastatin Sodium 40 mg 03/31/25 21:00 04/01/25 20:49 Pravastatin Sodium 40 Mg Tablet PO 40 mg BEDTIME VIVIEN Administration Ropinirole HCl 0.5 mg 03/31/25 21:00 04/01/25 20:49 Ropinirole Hcl 0.5 Mg Tablet PO 0.5 mg BEDTIME VIVIEN Administration Sacubitril/Valsartan 1 tab 03/31/25 21:00 04/01/25 20:49 Sacubitril/Valsartan 97/103 1 Tab Tablet PO 1 tab BID VIVIEN Administration Protocol Sodium Chloride 3 ml 03/31/25 16:00 04/01/25 20:50 0.9 % Sodium Chloride Flush 3 Ml Syringe IVFLUSH 3 ml QSHIFT VIVIEN Administration Discontinued Medications Generic Name Dose Route Start Last Admin Trade Name Freq PRN Reason Stop Dose Admin Furosemide 20 mg 03/31/25 15:00 03/31/25 15:42 Furosemide 20 Mg Tablet PO 03/31/25 15:01 20 mg ONCE ONE Administration Protocol Medical Decision Making Medical Decision Making [facility] Narrative: 84-year-old female history of AFib CHF presents to ED for palpitations and not feeling well. Patient's EKG shows AFib RVR heart rate 103. On bladder tier heart rate goes between 93-110. Patient's NT BNP 8000. No JVD. Labs chest x-ray ordered. 2:35pm: Patient's chest x-ray stated normal heart size no pleural effusion, but on visual inspection cardiomegaly could be seen. Patient is not in distress. Case was discussed with ANNE-MARIE Pizarro hospitalist for admission who is agreeable that patient should be admitted and be evaluated by Cardiology. No rate control meds was given due to heart rate being between 90 and 110 on a monitor. Differential Diagnosis Differential Diagnoses: The differential diagnosis associated with the presentation includes (CHF exacerbation AFib RVR) Admission/Observation Consideration of admission/observation: Escalation of care including admission/observation considered Consult Healthcare Provider Management of the patient was discussed with: Hospitalist (ANNE-MARIE Goodwin) Lab Data [facility] Lab Attestation statement: I reviewed the patient's lab results. 04/01/25 05:53 04/01/25 05:53 Labs: Lab Results 03/31/25 03/31/25 03/31/25 Range/Units 12:29 12:45 14:33 WBC 5.6 (4.8-10.8) X10*3/uL RBC 3.64 L (4.20-5.50) X10*6/uL Hgb 11.4 L (12.0-16.0) g/dl Hct 34.3 L (37.0-47.0) % MCV 94.2 (80.0-98.0) fL MCH 31.3 (27.0-33.0) pg MCHC 33.2 (31.0-35.0) g/dl RDW 13.0 (11.0-16.0) % Plt Count 210 (160-400) X10*3/uL MPV 9.3 L (9.4-12.3) fL Immature Gran % (Auto) 0.2 (0.0-0.4) % Neut % (Auto) 69.2 (45-73) % Lymph % (Auto) 20.9 (20-40) % [place] % (Auto) 9.5 (2-11) % Eos % (Auto) 0.0 (0-4) % Baso % (Auto) 0.2 (0-2) % Lymph # (Auto) 1.2 (1.2-4.9) X10*3/uL [place] # (Auto) 0.5 (0.1-1.2) X10*3/uL Eos # (Auto) 0.0 (0.0-0.4) X10*3/uL Baso # (Auto) 0.0 (0.0-0.2) X10*3/uL Abs Immat Gran (auto) 0.01 (0.00-0.03) X10*3/uL Absolute Neuts (auto) 3.9 (2.0-8.3) x10*3/uL Absolute Nucleated RBC 0.000 (0.0-0.012) X10*3/uL Nucleated RBC % (auto) 0.0 (0.0-0.2) /100WBC PT 18.0 H (10.9-12.4) SEC INR 1.6 H (0.9-1.1) APTT 35.3 H (26.7-34.1) SEC Sodium 145 (135-145) mmol/L Potassium 3.6 (3.3-5.1) mmol/L Chloride 105 (96-108) mmol/L Carbon Dioxide 29 (22-29) mmol/L Anion Gap 15 (12-20) BUN 27 H (9-16) mg/dL Creatinine 1.23 (0.5-1.4) mg/dL Estim Creat Clear Calc 37.6 Estimated GFR 42 Random Glucose 123 H (60-115) mg/dL Calcium 9.0 (8.4-10.2) mg/dL Magnesium 1.9 (1.6-2.6) mg/dL Total Bilirubin 0.5 (0.0-1.0) mg/dL AST 21 (5-31) U/L ALT 15 (0-31) U/L Alkaline Phosphatase 81 (39-117) U/L Troponin I High Sens 37.9 H D 33.7 H (<3.5-17.0) ng/L NT-Pro-B Natriuret Pep 8005.4 H (<300) pg/mL Total Protein 6.5 (6.5-8.0) g/dL Albumin 4.4 (3.5-5.0) g/dL TSH 0.90 (0.32-4.0) uIU/mL COVID-19 (VALARIE) Negative (Negative) COVID-19 Clin Com See Note Influenza Type A (ESE) Negative (Negative) Influenza Type B (ESE) Negative (Negative) Influenza A & B Note See Note Independent Interpretation I performed an independent interpretation of an: EKG (EKG AFib RVR) Independent Historian Clinical information obtained from an independent historian. History obtained from or confirmed by: Other (Patient) Critical Care Time Critical Care Time Critical Care Time: Yes Total Critical Care Time: 60 Attestation: Patient afib RVR. BNP 8,000. Patietn admitted to hospitatlist for managment. Discharge Plan Discharge Clinical Impression: Afib Patient Disposition: Admitted As Inpatient Interventions: Admission Worksheet (ED) Last Done: 03/31/25 15:16 Discharge Date/Time: 03/31/25 16:25
[2025-03-31 14:24] VITALS: BP 158/79; PULSE 93; RESP 15; TEMP 36.7; O2SAT 97
[2025-03-31 14:59] LABS: Troponin-I High Sensitivity 33.7 ng/L (<3.5-17.0)
--- NOTE | 2025-03-31 15:00 | PM.IMHP ---
History of Present Illness Date of Service: 03/31/25 Chief Complaint: Palpitations 84 year old women with hx of afib and CHF presented with 24 hours of palpitations. She has a hx of afib rvr and last cardioversion was in November 2024. She started having palpitations yesterday and did not go away. She did not have chest pain, shortness of breath, fever, chills, nausea, vomiting, diarrhea. She has been taking her medications daily and has not missed doses other than her lasix dose this morning. In the ED, her BNP was noted to be elevated at 8005.4 but did not appear to be in overt failure. Her heart rate ranged from 90-120's. Troponin mildly elevated but essentially flat. CXR negative for consolidation or effusion. Placed on observation. Review of Systems Review of Systems: Denies any recent fever chills or decrease in appetite respiratory denies any shortness of breath or cough cardiovascular See HPI gastrointestinal denies any dysphagia abdominal pain nausea vomiting or diarrhea genitourinary denies any dysuria frequency or hematuria musculoskeletal denies any joint pain or swelling neuropsych denies any weakness or seizures all other systems reviewed are negative [facility] Medical History Arthritis of right knee CHF (congestive heart failure) Tachycardia Afib Social History Household Members: Family Housing: House Do you presently have visiting nurse or other home services: No Alcohol intake: never Comment: pt gait steady Patient Tobacco Use Status: Never used Tobacco Smoked in Last 30 Days: No e-Cigarette/Vaping Use: Never Used Use of substances other than those prescribed or required for medical reasons: No Advance Directives: No Advance Directives Information Provided: Yes Do you have a plan to hurt others: No Plan service: No Current occupational status: 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 Meds Allergies Allergy/AdvReac Type Severity Reaction Status Date / Time No Known Allergies Allergy Verified 03/31/25 12:13 Active Medications: Current Medications Acetaminophen (Acetaminophen 325 Mg Tablet) 650 mg PO Q6H PRN PRN Reason: Pain, Mild 1-3,fever,headache Calcium Carbonate (Calcium Carbonate 750 Mg Tab.Chew) 750 mg PO Q4H PRN PRN Reason: Heartburn Magnesium Hydroxide (Milk Of Magnesia 30 Ml Oral.Susp) 30 ml PO DAILY PRN PRN Reason: Constipation Melatonin (Melatonin 3 Mg Tablet) 6 mg PO BEDTIME PRN PRN Reason: Insomnia Ondansetron HCl (Ondansetron Hcl 4 Mg/2 Ml Vial) 4 mg IVPUSH Q8H PRN PRN Reason: Nausea and Vomiting Sodium Chloride (0.9 % Sodium Chloride Flush 3 Ml Syringe) 3 [facility] Medications ?Medication ?Instructions ?Recorded ?Confirmed ?Last Taken ?Type pravastatin 40 mg tablet 40 mg PO BEDTIME 02/11/21 03/06/25 11/19/24 History apixaban 5 mg tablet (Eliquis) 5 mg PO BID 04/08/22 03/06/25 11/20/24 History furosemide 20 mg tablet 40 mg PO BID 06/26/23 03/06/25 11/20/24 History zdrmxivk-zgjwcuc-hcwp-lutein tablet 1 tab PO DAILY 11/20/24 03/06/25 11/20/24 History sacubitril 97 mg-valsartan 103 mg 1 tab PO BID 11/20/24 03/06/25 11/20/24 History tablet (Entresto) vitamins A,C,Q-zbwg-zpavll 2,148 2 tab PO DAILY 11/20/24 03/06/25 11/20/24 History mcg-113 mg-45 mg-17.4 mg tablet (PreserVision AREDS) ropinirole 0.5 mg tablet 0.5 mg PO BEDTIME 03/06/25 03/06/25 Unknown History amiodarone 200 mg tablet 200 mg PO DAILY 03/31/25 Unknown History Physical Exam Vital Signs and Narrative: Vital Signs: Last Vital Signs Temp 98.1 F 03/31/25 14:24 Pulse 93 03/31/25 14:24 Resp 15 03/31/25 14:24 BP 158/79 H 03/31/25 14:24 Pulse Ox 97 03/31/25 14:24 O2 Del Method Room Air 03/31/25 14:24 BMI result Body Mass Index 28.5 Appearing in no acute distress head is normocephalic atraumatic eyes pupils are PERRLA sclera is anicteric mouth throat mucous membranes are intact and moist neck is supple no lymphadenopathy, no JVD noted lung sounds are clear to auscultation heart IRIR positive bowel sounds, abdomen is soft, nontender neuro patient is alert x3, no focal deficits Chronic LE edema Results Labs 03/31/25 12:29 03/31/25 12:29 Labs: Laboratory Results - last 24 hr 03/31/25 03/31/25 03/31/25 12:29 12:45 14:33 MCV 94.2 MCH 31.3 MCHC 33.2 RDW 13.0 Plt Count 210 MPV 9.3 L Immature Gran % (Auto) 0.2 Neut % (Auto) 69.2 Lymph % (Auto) 20.9 [place] % (Auto) 9.5 Eos % (Auto) 0.0 Baso % (Auto) 0.2 Lymph # (Auto) 1.2 [place] # (Auto) 0.5 Eos # (Auto) 0.0 Baso # (Auto) 0.0 Abs Immat Gran (auto) 0.01 Absolute Neuts (auto) 3.9 Absolute Nucleated RBC 0.000 Nucleated RBC % (auto) 0.0 PT 18.0 H INR 1.6 H APTT 35.3 H Anion Gap 15 Estim Creat Clear Calc 37.6 Estimated GFR 42 Random Glucose 123 H Calcium 9.0 Magnesium 1.9 Total Bilirubin 0.5 AST 21 ALT 15 Alkaline Phosphatase 81 Troponin I High Sens 37.9 H D 33.7 H NT-Pro-B Natriuret Pep 8005.4 H Total Protein 6.5 Albumin 4.4 TSH 0.90 COVID-19 ([facility]) Negative COVID-19 Clin Com See Note Influenza Type A (EES) Negative Influenza Type B (ESE) Negative Influenza A & B Note See Note Assessment and Plan (1) Elevated troponin: Status: Acute Plan 84 year old women admitted with symptomatic afiv rvr Symptomatic paroxysmal afib rvr Started 24 hrs ago last cardioversion 11/21/24 NO chest pain or sob, stable blood pressure Continue current medications Cardiology consultation echo Monitor on telemetry HFrEF no exacerbation despite elevated BNP chronical LE edema Continue scheduled lasix and entresto CKD3B stable at baseline RLS ropinirole HLD statin Normocytic anemia Stable H&H, no need for blood transfusion DVT prophylaxis with apixaban Full code Quality Stroke Does the patient have a stroke diagnosis?: No VTE Prior VTE?: No VTE Risk Level:: Medical - moderate - high VTE Device Contraindication: Treatment Not Indicated VTE Drug Contraindication: N/A - Med Ordered
[2025-03-31 15:42] VITALS: BP 144/81
[2025-03-31] MEDS: 0.9 % Sodium Chloride Flush 3 ML SYRINGE IVFLUSH ×2 (15:45→23:06)
--- NOTE | 2025-03-31 15:47 | PHA.MEDREC ---
Addendum entered by Srinivas Dela Cruz, Zoltan 03/31/25 15:53: MED REC CHECKED BY [facility] Original Note: Pharmacy Consult ? Medication Reconciliation Pharmacy has completed the medication reconciliation. Confirmed medication list with patient and a list the patient brought from home. Patient took all morning meds except for her morning dose of furosemide this morning. Patient took all bedtime medications and nighttime doses last night.
[2025-03-31 19:24] VITALS: BP 143/73; PULSE 92; RESP 16; TEMP 37; O2SAT 98
[2025-03-31 21:18] VITALS: BP 118/70; PULSE 100
[2025-03-31] MEDS: Sacubitril/Valsartan 97/103 1 TAB TABLET PO (21:18)
[2025-04-01] VITALS (8 sets, daily range): BP systolic 95–133; BP diastolic 53–87; PULSE 78–104; RESP 16–18; TEMP 36.2–36.8; O2SAT 97–99
--- NOTE | 2025-04-01 04:14 | PC.NURSE ---
Patient alert and oriented x4, patient refusing safety alarms. Patient ambulates with a cane at baseline, lives home alone. Educated patient on safety precautions and calling for assistance when necessary, pt cooperative.
[2025-04-01 06:31] LABS: Hematocrit 31.6 % (37.0-47.0); Hemoglobin 10.2 g/dl (12.0-16.0); Mean Corpuscular HGB Conc 32.3 g/dl (31.0-35.0); Mean Corpuscular Hemoglobin 31.1 pg (27.0-33.0); Mean Corpuscular Volume 96.3 fL (80.0-98.0); NRBC Abs Auto 0.000 X10*3/uL (0.0-0.012); NRBC Pct Auto 0.0 /100WBC (0.0-0.2); Platelet Count 198 X10*3/uL (160-400); Red Blood Count 3.28 X10*6/uL (4.20-5.50); White Blood Count 4.6 X10*3/uL (4.8-10.8)
[2025-04-01 06:45] LABS: Anion Gap 13 (12-20); Blood Urea Nitrogen 26 mg/dL (9-16); Calcium 8.4 mg/dL (8.4-10.2); Carbon Dioxide 30 mmol/L (22-29); Chloride 108 mmol/L (96-108); Creatinine Clr Calc Pharmacy 41.6; Estimated Glomerular Filt Rate 45; Potassium 3.6 mmol/L (3.3-5.1); Sodium 147 mmol/L (135-145)
[2025-04-01 06:54] LABS: NT Pro B Type Natriuretic Pept 9244.3 pg/mL (<300)
--- NOTE | 2025-04-01 07:00 | CA_ITS ---
Transthoracic Echocardiogram Patient (Last, First, Middle): Swetha May J Gender: Female Date of : 1940 Age: 84 Procedure Date: 04/01/2025 Procedure Type: Transthoracic Echocardiogram Location: [facility] Height: 170.18 cm Weight: 86.64 kg BSA: 1.98 m2 Heart Rate: 92 bpm BP: 112 / 59 mmHg Registered Land Surveyor: EDWARD Referring MD: Moira Goodwin NP Symptoms: afib rvr, HfREF Study Quality: Adequate ECG Rhythm: Atrial Fibrillation Conclusions: - Normal left ventricular cavity size. The left ventricular systolic function is moderately decreased. The visually estimated ejection fraction is between 30-35%. - Normal right ventricular cavity size. There is low normal right ventricular systolic function. - The left atrium is severely dilated. - There is mild calcification of the aortic valve. - There is severe mitral annular calcification. Findings Left Ventricle Normal left ventricular cavity size. The left ventricular systolic function is moderately decreased. The visually estimated ejection fraction is between 30-35%. There is moderate global hypokinesis. Diastolic function is indeterminate on the basis of available data. Right Ventricle Normal right ventricular cavity size. There is low normal right ventricular systolic function. Atria The left atrium is severely dilated. The right atrium is moderately dilated. Aortic Valve There is a normal trileaflet aortic valve. There is mild calcification of the aortic valve. There is no aortic valve stenosis. There is no aortic valve regurgitation. Mitral Valve The mitral valve appears normal. There is severe mitral annular calcification. There is mild mitral valve regurgitation. There is no mitral valve stenosis. Pulmonic Valve The pulmonic valve is normal. There is trace pulmonic valve regurgitation. Tricuspid Valve Normal tricuspid valve structure. There is trace tricuspid valve regurgitation. Normal right atrial pressure. There is no evidence of pulmonary hypertension. Venous The inferior vena cava is normal in size and collapses greater than 50% with inspiration. Pericardium/Pleural There is no evidence of pericardial effusion. Prior Study Comparison Changes noted compared to prior study dated: 06/27/2023. EF 30-35%-reduced compared to echo from 06/27/23 Measurements 2D Linear Measurements IVSd: 0.83 0.6-0.9/0.6-1.0 cm LVIDd: 5.21 3.9-5.3/4.2-5.9 cm LVIDd Index: 2.63 2.4-3.2/2.2-3.1 cm/m2 LVIDs: 3.31 2.0-3.6 cm LVPWd: 0.98 0.7-1.1 cm LA Diam: 3.90 2.7-3.8/3.0-4.0 cm LAIDs Index: 1.97 1.5-2.3 cm/m2 LV Mass: 213.48 67-162/88-224 g LV Mass Index: 107.82 43-95/49-115 g/m2 LVOT Diam: 1.90 3.0+(-)1.3 cm 2D Systolic Function EF 4C: 37.50 >55% EF 2C: 53.90 >55% EF BiP: 48.20 >55% Mitral Valve MV VTI: 0.26 MV Pk Rafael: 1.36 MV Mn Rafael: 0.85 MV Pk Grad: 7.00 MV Mn Grad: 4.00 MV Pk E: 1.31 MV Decel Time: 167.00 E'Lateral: 9.43 E'Medial: 6.20 E/E' Med: 21.10 E/E' Lat: 13.90 PHT: 49.00 MVA PHT: 4.49 MVA Continuity: 2.05 Decel [place]: 8.04 Aortic Valve AoV Pk Rafael: 1.38 AoV Mn Rafael: 1.03 AoV VTI: 0.28 AoV Pk Grad: 8.00 Aov Mn Grad: 5.00 MARILEE Cont.VTI: 1.90 LVOT LVOT Pk Rafael: 0.97 LVOT Mn Rafael: 0.66 LVOT VTI: 0.19 LVOT Pk Grad: 4.00 LVOT Mn Grad: 2.00 LVOT Diam: 1.90 LVOT Area: 2.84 Diastolic Function MV Pk E: 1.31 E'Medial: 6.20 E/E' Med: 21.10 E' Laterial: 9.43 E/E' Lat: 13.90 Right Ventricle TAPSE (mm): 21.50 TVS' Rafael: 7.68 Tricuspid Valve TR Pk Rafael: 2.21 TR Pk Grad: 20.00 RA Press: 3.00 RVSP: 23.00 Great Vessels Aorta Sinus of Valsalva: 3.20 2.0-3.5 cm Ao Asc: 3.10 2.1-3.4 cm Ao Arch: 2.60 Pulmonary Valve PV Pk Rafael: 0.76 Peak PV Grad: 2.00 Updated in Other Vendor System with Status of Final Vin Sow MD electronically signed on 04/01/2025 3:15:18 PM with status of Final
[2025-04-01] MEDS: Sacubitril/Valsartan 97/103 1 TAB TABLET PO ×2 (07:50→20:49)
--- NOTE | 2025-04-01 09:35 | HO.PM.IMPN ---
Subjective Subjective Date of Service: 04/01/25 Interval History: occasional palpiations Physical Exam Exam: Exam: General: AO X 3, no acute distress Resp: CTA bilateral, no accessory muscles used CVS: S1,S2, irregular GI: soft, non tender, non distended Neuro: motor grossly intact, alert Psych: appropriate affect, appropriate insight Vital Signs: Vital Signs: Last Vital Signs Temp 97.1 F 04/01/25 07:42 Pulse 92 04/01/25 07:42 Resp 18 04/01/25 07:42 BP 133/87 04/01/25 07:42 Pulse Ox 97 04/01/25 07:42 O2 Del Method Room Air 04/01/25 07:42 BMI result Body Mass Index 30.0 Objective Data Active Medications Acetaminophen (Acetaminophen 325 Mg Tablet) 650 mg PO Q6H PRN PRN Reason: Pain, Mild 1-3,fever,headache Amiodarone HCl (Amiodarone Hcl 200 Mg Tablet) 200 mg PO DAILY [facility] Last Admin: 04/01/25 07:50 Dose: 200 mg Documented By: RATNA Apixaban (Apixaban 5 Mg Tablet) 5 mg PO BID [facility] Last Admin: 04/01/25 07:50 Dose: 5 mg Documented By: RATNA Calcium Carbonate (Calcium Carbonate 750 Mg Tab.Chew) 750 mg PO Q4H PRN PRN Reason: Heartburn Furosemide (Furosemide 40 Mg Tablet) 40 mg PO BID [facility]; Protocol Last Admin: 04/01/25 07:50 Dose: 40 mg Documented By: RATNA Magnesium Hydroxide (Milk Of Magnesia 30 Ml Oral.Susp) 30 ml PO DAILY PRN PRN Reason: Constipation Melatonin (Melatonin 3 Mg Tablet) 6 mg PO BEDTIME PRN PRN Reason: Insomnia Last Admin: 03/31/25 21:18 Dose: 6 mg Documented By: HAN Metoprolol Tartrate (Metoprolol Tartrate 25 Mg Tablet) 25 mg PO BID [facility]; Protocol Last Admin: 04/01/25 07:50 Dose: 25 mg Documented By: RATNA Multivitamins/Vitamin C (Multivitamin Tablet) 2 tab PO DAILY [facility] Last Admin: 04/01/25 07:50 Dose: 2 tab Documented By: RATNA Ondansetron HCl (Ondansetron Hcl 4 Mg/2 Ml Vial) 4 mg IVPUSH Q8H PRN PRN Reason: Nausea and Vomiting Pravastatin Sodium (Pravastatin Sodium 40 Mg Tablet) 40 mg PO BEDTIME [facility] Last Admin: 03/31/25 21:17 Dose: 40 mg Documented By: HAN Ropinirole HCl (Ropinirole Hcl 0.5 Mg Tablet) 0.5 mg PO BEDTIME [facility] Last Admin: 03/31/25 21:17 Dose: 0.5 mg Documented By: HAN Sacubitril/Valsartan (Sacubitril/Valsartan 97/103 1 Tab Tablet) 1 tab PO BID [facility]; Protocol Last Admin: 04/01/25 07:50 Dose: 1 tab Documented By: RATNA Sodium Chloride (0.9 % Sodium Chloride Flush 3 Ml Syringe) 3 ml IVFLUSH QSHIFT [facility] Last Admin: 04/01/25 07:45 Dose: Not Given Documented By: RATNA Non-Admin Reason: Previously Administered Labs 04/01/25 05:53 04/01/25 05:53 Labs: Laboratory Results - last 24 hr 03/31/25 03/31/25 03/31/25 12:29 12:45 14:33 MCV 94.2 MCH 31.3 MCHC 33.2 RDW 13.0 Plt Count 210 MPV 9.3 L Immature Gran % (Auto) 0.2 Neut % (Auto) 69.2 Lymph % (Auto) 20.9 [place] % (Auto) 9.5 Eos % (Auto) 0.0 Baso % (Auto) 0.2 Lymph # (Auto) 1.2 [place] # (Auto) 0.5 Eos # (Auto) 0.0 Baso # (Auto) 0.0 Abs Immat Gran (auto) 0.01 Absolute Neuts (auto) 3.9 Absolute Nucleated RBC 0.000 Nucleated RBC % (auto) 0.0 PT 18.0 H INR 1.6 H APTT 35.3 H Anion Gap 15 Estim Creat Clear Calc 37.6 Estimated GFR 42 Random Glucose 123 H Calcium 9.0 Magnesium 1.9 Total Bilirubin 0.5 AST 21 ALT 15 Alkaline Phosphatase 81 Troponin I High Sens 37.9 H D 33.7 H NT-Pro-B Natriuret Pep 8005.4 H Total Protein 6.5 Albumin 4.4 TSH 0.90 COVID-19 ([facility]) Negative COVID-19 Clin Com See Note Influenza Type A (ESE) Negative Influenza Type B (ESE) Negative Influenza A & B Note See Note 04/01/25 05:53 MCV 96.3 MCH 31.1 MCHC 32.3 RDW 13.1 Plt Count 198 MPV 9.7 Immature Gran % (Auto) Neut % (Auto) Lymph % (Auto) [place] % (Auto) Eos % (Auto) Baso % (Auto) Lymph # (Auto) [place] # (Auto) Eos # (Auto) Baso # (Auto) Abs Immat Gran (auto) Absolute Neuts (auto) Absolute Nucleated RBC 0.000 Nucleated RBC % (auto) 0.0 PT INR APTT Anion Gap 13 Estim Creat Clear Calc 41.6 Estimated GFR 45 Random Glucose 109 Calcium 8.4 D Magnesium Total Bilirubin AST ALT Alkaline Phosphatase Troponin I High Sens NT-Pro-B Natriuret Pep 9244.3 H Total Protein Albumin TSH COVID-19 ([facility]) COVID-19 Clin Com Influenza Type A (ESE) Influenza Type B (ESE) Influenza A & B Note Assessment and Plan (1) Cardiomyopathy: Status: Acute Plan 84F PMH pafib, hfref, CKD III presented with palpitations pafib symptomatic conitnue amio and apixaban follow up cardio, ?cardioversion due to symptoms hfref continue lasix, entresto, metoprolol, ckd III stable dvt prophylaxis - eliquis full code reason for continued hospitalization: still with discomfort from palpitations Quality Stroke Does the patient have a stroke diagnosis?: No VTE Prior VTE?: No VTE Risk Level:: Medical - moderate - high VTE Device Contraindication: Treatment Not Indicated VTE Drug Contraindication: N/A - Med Ordered
--- NOTE | 2025-04-01 12:58 | P.CONCA_ITS ---
History of Present Illness History of Present Illness Date of Service: 04/01/25 Chief complaint: symptomatic afib rvr Narrative: [age] year female presenting with palpitations and shortness of breath. She was noticed to be in atrial fibrillation. She has known history of atrial arrhythmia in the past and had cardioversion. She is on amiodarone chronically and also takes Eliquis 5 mg twice a day. She is saying she is feeling better and breathing has improved significantly. Continues to be in atrial fibrillation. [facility] Past Medical History Medical History Arthritis of right knee CHF (congestive heart failure) Tachycardia Afib Social History Social History Household Members: Family Housing: House Do you presently have visiting nurse or other home services: No Alcohol intake: never Comment: pt gait steady Patient Tobacco Use Status: Never used Tobacco Smoked in Last 30 Days: No e-Cigarette/Vaping Use: Never Used Use of substances other than those prescribed or required for medical reasons: No Currently Displaying Signs/Symptoms of Drug Intoxication Withdrawal: No Advance Directives: No Advance Directives Information Provided: Yes Do you have a plan to hurt others: No Plan service: No Current occupational status: 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 Meds Allergies Allergy/AdvReac Type Severity Reaction Status Date / Time No Known Allergies Allergy Verified 03/31/25 12:13 Active Medications: Current Medications Acetaminophen (Acetaminophen 325 Mg Tablet) 650 mg PO Q6H PRN PRN Reason: Pain, Mild 1-3,fever,headache Amiodarone HCl (Amiodarone Hcl 200 Mg Tablet) 200 mg PO DAILY [facility] Last Admin: 04/01/25 07:50 Dose: 200 mg Apixaban (Apixaban 5 Mg Tablet) 5 mg PO BID [facility] Last Admin: 04/01/25 07:50 Dose: 5 mg Calcium Carbonate (Calcium Carbonate 750 Mg Tab.Chew) 750 mg PO Q4H PRN PRN Reason: Heartburn Furosemide (Furosemide 40 Mg Tablet) 40 mg PO BID [facility]; Protocol Last Admin: 04/01/25 07:50 Dose: 40 mg Magnesium Hydroxide (Milk Of Magnesia 30 Ml Oral.Susp) 30 ml PO DAILY PRN PRN Reason: Constipation Melatonin (Melatonin 3 Mg Tablet) 6 mg PO BEDTIME PRN PRN Reason: Insomnia Last Admin: 03/31/25 21:18 Dose: 6 mg Metoprolol Tartrate (Metoprolol Tartrate 25 Mg Tablet) 25 mg PO BID [facility]; Protocol Last Admin: 04/01/25 07:50 Dose: 25 mg Multivitamins/Vitamin C (Multivitamin Tablet) 2 tab PO DAILY [facility] Last Admin: 04/01/25 07:50 Dose: 2 tab Ondansetron HCl (Ondansetron Hcl 4 Mg/2 Ml Vial) 4 mg IVPUSH Q8H PRN PRN Reason: Nausea and Vomiting Pravastatin Sodium (Pravastatin Sodium 40 Mg Tablet) 40 mg PO BEDTIME [facility] Last Admin: 03/31/25 21:17 Dose: 40 mg Ropinirole HCl (Ropinirole Hcl 0.5 Mg Tablet) 0.5 mg PO BEDTIME [facility] Last Admin: 03/31/25 21:17 Dose: 0.5 mg Sacubitril/Valsartan (Sacubitril/Valsartan 97/103 1 Tab Tablet) 1 tab PO BID [facility]; Protocol Last Admin: 04/01/25 07:50 Dose: 1 tab Sodium Chloride (0.9 % Sodium Chloride Flush 3 Ml [facility]ringe) [facility] Admin: 04/01/25 11:26 Dose: Not Given Home Medications ?Medication ?Instructions ?Recorded ?Confirmed ?Last Taken ?Type pravastatin 40 mg tablet 40 mg PO BEDTIME 02/11/2103/30/25 History apixaban 5 mg tablet (Eliquis) 5 mg PO BID 04/08/2203/31/25 History furosemide 20 mg tablet 40 mg PO BID 06/26/2303/30/25 History lzlsvkwa-mddvvzm-muvz-lutein tablet 1 tab PO DAILY 09/1103/31/25 03/31/25 History sacubitril 97 mg-valsartan 103 mg 1 tab PO BID 5 03/31/25 03/31/25 History tablet (Entresto) vitamins A,C,P-zljj-ershnr 2,148 2 tab PO DAILY 03/31/25 03/31/25 History mcg-113 mg-45 mg-17.4 mg tablet (PreserVision AREDS) ropinirole 0.5 mg tablet 0.5 mg PO BEDTIME 03/06/25 1 03/30/25 History amiodarone 200 mg tablet 200 mg PO DAILY 03/31/2506/1303/31/25 History Physical Exam 2 Vital Signs: Vital Signs: Last Vital Signs Temp 97.6 F 04/01/25 11:32 Pulse 87 04/01/25 11:32 Resp 18 04/01/25 11:32 BP 120/56 L 04/01/25 11:32 Pulse Ox 98 04/01/25 11:32 O2 Del Method Room Air 04/01/25 11:32 BMI result Body Mass Index 30.0 GENERAL APPEARANCE: in no acute distress, pleasant. NECK: no carotid bruit, no jugular venous distention. SKIN: no suspicious lesions, warm and dry. HEART: no murmurs, irregular rate and rhythm. LUNGS: clear to auscultation bilaterally. ABDOMEN: soft, nontender. EXTREMITIES: no edema. PERIPHERAL PULSES: equal. NEUROLOGIC: No gross deficits, AAO X 3 Objective Labs and Meds 04/01/25 05:53 04/01/25 05:53 Lab results: Laboratory Results - last 24 hr 03/31/25 03/31/25 03/31/25 12:29 12:45 14:33 WBC RBC Hgb Hct MCV MCH MCHC RDW Plt Count MPV Absolute Nucleated RBC Nucleated RBC % (auto) Sodium Potassium Chloride Carbon Dioxide Anion Gap BUN Creatinine Estim Creat Clear Calc Estimated GFR Random Glucose Calcium Troponin I High Sens 37.9 H D 33.7 H NT-Pro-B Natriuret Pep 8005.4 H TSH 0.90 COVID-19 ([facility]) Negative COVID-19 Clin Com See Note Influenza Type A (ESE) Negative Influenza Type B (ESE) Negative Influenza A & B Note See Note 04/01/25 05:53 WBC 4.6 L RBC 3.28 L Hgb 10.2 L Hct 31.6 L MCV 96.3 MCH 31.1 MCHC 32.3 RDW 13.1 Plt Count 198 MPV 9.7 Absolute Nucleated RBC 0.000 Nucleated RBC % (auto) 0.0 Sodium 147 H Potassium 3.6 Chloride 108 Carbon Dioxide 30 H Anion Gap 13 BUN 26 H Creatinine 1.14 Estim Creat Clear Calc 41.6 Estimated GFR 45 Random Glucose 109 Calcium 8.4 D Troponin I High Sens NT-Pro-B Natriuret Pep 9244.3 H TSH COVID-19 ([facility]) COVID-19 Clin Com Influenza Type A (ESE) Influenza Type B (ESE) Influenza A & B Note Assessment and Plan (1) Afib: Status: Acute Plan Pleasant 84 year female with symptomatic atrial fibrillation on background of mild cardiomyopathy. Clinically she appears to be improving. She was given IV diuretics and is on oral diuretics appropriately at this point. Continue beta-duy and amiodarone. Continue Eliquis 5 mg twice a day. Keep her NPO after midnight for potential cardioversion tomorrow morning. Thank you for allowing me to participate in the care of your patient. Please feel free to contact me if you have any questions. Procedures Date of Service Date of Service: 04/01/25
--- NOTE | 2025-04-01 16:38 | MHC.CM.PN ---
PT REPORTS SHE LIVES ALONE AND IS INDEPENDENT WITH CARE SHE USES A CANE TO AMBULATE AND HAS NO SERVICES REPORTS SHE WILL COMPLETE A HCP AT HOME WITH FAMILY PCP: ANGEL KOTHARI OBSERVATION NOTICE DELIVERED DCP: HOME VIA PRIVATE TRANSPORT
[2025-04-01] MEDS: 0.9 % Sodium Chloride Flush 3 ML SYRINGE IVFLUSH (20:50)
[2025-04-02] VITALS (10 sets, daily range): BP systolic 107–148; BP diastolic 53–79; PULSE 56–112; RESP 12–18; TEMP 36.4–37.1; O2SAT 95–100
--- NOTE | 2025-04-02 | ECG_ITS ---
Test Reason : post cardioversion Blood Pressure : */* mmHG Vent. Rate : 58 BPM Atrial Rate : 58 BPM P-R Int : 172 ms QRS Dur : 106 ms QT Int : 410 ms P-R-T Axes : 45 -31 7 degrees QTcB Int : 402 ms Sinus bradycardia with Premature supraventricular complexes Left axis deviation Low voltage QRS Inferior infarct Cannot rule out Anterior infarct Abnormal ECG When compared with ECG of 31-Mar-2025 12:20, No significant changes seen Referred By: Vin Sow Electronically Signed By: Vin Sow
--- NOTE | 2025-04-02 08:27 | HO.ANESPROP2 ---
HPI - Anesthesia Eval Consult details Narrative: cardioversion [facility] Active Problems Active Problems: All Active Problems Afib (Acute) Cardiomyopathy (Acute) Impingement of right shoulder (Acute) Arthritis of right knee (Acute) COVID-19 (Acute) Elevated troponin (Acute) Right hip pain (Acute) Impacted cerumen, left ear (Acute) Hearing difficulty of left ear (Acute) Scaphoid fracture (Acute) Left wrist sprain (Acute) Past Medical History Medical History Arthritis of right knee CHF (congestive heart failure) Tachycardia Afib Family History Family history of problems with anesthesia: No Surgical History History of Problems with Anesthesia: No Social History Social History Household Members: Family Housing: House Do you presently have visiting nurse or other home services: No Alcohol intake: never Comment: pt gait steady Patient Tobacco Use Status: Never used Tobacco Smoked in Last 30 Days: No e-Cigarette/Vaping Use: Never Used Use of substances other than those prescribed or required for medical reasons: No Currently Displaying Signs/Symptoms of Drug Intoxication Withdrawal: No Advance Directives: No Advance Directives Information Provided: Yes Do you have a plan to hurt others: No Plan service: No Current occupational status: 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 Meds Allergies Allergy/AdvReac Type Severity Reaction Status Date / Time No Known Allergies Allergy Verified 03/31/25 12:13 Active Medications: Current Medications Acetaminophen (Acetaminophen 325 Mg Tablet) 650 mg PO Q6H PRN PRN Reason: Pain, Mild 1-3,fever,headache Amiodarone HCl (Amiodarone Hcl 200 Mg Tablet) 200 mg PO DAILY [facility] Last Admin: 04/01/25 07:50 Dose: 200 mg Apixaban (Apixaban 5 Mg Tablet) 5 mg PO BID [facility] Last Admin: 04/01/25 20:49 Dose: 5 mg Calcium Carbonate (Calcium Carbonate 750 Mg Tab.Chew) 750 mg PO Q4H PRN PRN Reason: Heartburn Furosemide (Furosemide 40 Mg Tablet) 40 mg PO BID [facility]; Protocol Last Admin: 04/01/25 20:49 Dose: 40 mg Magnesium Hydroxide (Milk Of Magnesia 30 Ml Oral.Susp) 30 ml PO DAILY PRN PRN Reason: Constipation Melatonin (Melatonin 3 Mg Tablet) 6 mg PO BEDTIME PRN PRN Reason: Insomnia Last Admin: 03/31/25 21:18 Dose: 6 mg Metoprolol Tartrate (Metoprolol Tartrate 25 Mg Tablet) 25 mg PO BID [facility]; Protocol Last Admin: 04/01/25 20:49 Dose: 25 mg Multivitamins/Vitamin C (Multivitamin Tablet) 2 tab PO DAILY [facility] Last Admin: 04/01/25 07:50 Dose: 2 tab Ondansetron HCl (Ondansetron Hcl 4 Mg/2 Ml Vial) 4 mg IVPUSH Q8H PRN PRN Reason: Nausea and Vomiting Pravastatin Sodium (Pravastatin Sodium 40 Mg Tablet) 40 mg PO BEDTIME [facility] Last Admin: 04/01/25 20:49 Dose: 40 mg Ropinirole HCl (Ropinirole Hcl 0.5 Mg Tablet) 0.5 mg PO BEDTIME [facility] Last Admin: 04/01/25 20:49 Dose: 0.5 mg Sacubitril/Valsartan (Sacubitril/Valsartan 97/103 1 Tab Tablet) 1 tab PO BID [facility]; Protocol Last Admin: 04/01/25 20:49 Dose: 1 tab Sodium Chloride (0.9 % Sodium Chloride Flush 3 Ml Syringe) 3 ml [place] Last Admin: 04/02/25 07:23 Dose: Not Given Home Medications ?Medication ?Instructions ?Recorded ?Confirmed ?Last Taken ?Type pravastatin 40 mg tablet 40 mg PO BEDTIME 02/11/21 03/31/25 03/30/25 History apixaban 5 mg tablet (Eliquis) 5 mg PO BID 04/08/22 03/31/25 03/31/25 History furosemide 20 mg tablet 40 mg PO BID 06/26/23 03/31/25 03/30/25 History xcfvqpfr-vnabtcb-llmu-lutein tablet 1 tab PO DAILY 11/20/24 03/31/25 03/31/25 History sacubitril 97 mg-valsartan 103 mg 1 tab PO BID 11/20/24 03/31/25 03/31/25 History tablet (Entresto) vitamins A,C,N-ksmk-fcrnpl 2,148 2 tab PO DAILY 11/20/24 03/31/25 03/31/25 History mcg-113 mg-45 mg-17.4 mg tablet (PreserVision AREDS) ropinirole 0.5 mg tablet 0.5 mg PO BEDTIME 03/06/25 03/31/25 03/30/25 History amiodarone 200 mg tablet 200 mg PO DAILY 03/31/25 03/31/25 03/31/25 History Exam Height,Weight and Vital Signs: Height 5 ft 7 in Weight 87 kg Last Vital Signs Temp 98.7 F 04/02/25 07:19 Pulse 98 04/02/25 07:19 Resp 18 04/02/25 07:19 BP 145/73 H 04/02/25 07:19 Pulse Ox 98 04/02/25 07:19 O2 Del Method Room Air 04/02/25 07:19 Pertinent Lab Results Pertinent Lab Results: Laboratory Tests 03/31/25 03/31/25 03/31/25 12:29 12:45 14:33 WBC 5.6 RBC 3.64 L Hgb 11.4 L Hct 34.3 L MCV 94.2 MCH 31.3 MCHC 33.2 RDW 13.0 Plt Count 210 MPV 9.3 L Immature Gran % (Auto) 0.2 Neut % (Auto) 69.2 Lymph % (Auto) 20.9 Mcdowell % (Auto) 9.5 Eos % (Auto) 0.0 Baso % (Auto) 0.2 Lymph # (Auto) 1.2 Mcdowell # (Auto) 0.5 Eos # (Auto) 0.0 Baso # (Auto) 0.0 Abs Immat Gran (auto) 0.01 Absolute Neuts (auto) 3.9 Absolute Nucleated RBC 0.000 Nucleated RBC % (auto) 0.0 PT 18.0 H INR 1.6 H APTT 35.3 H Sodium 145 Potassium 3.6 Chloride 105 Carbon Dioxide 29 Anion Gap 15 BUN 27 H Creatinine 1.23 Estim Creat Clear Calc 37.6 Estimated GFR 42 Random Glucose 123 H Calcium 9.0 Magnesium 1.9 Total Bilirubin 0.5 AST 21 ALT 15 Alkaline Phosphatase 81 Troponin I High Sens 37.9 H D 33.7 H NT-Pro-B Natriuret Pep 8005.4 H Total Protein 6.5 Albumin 4.4 TSH 0.90 COVID-19 ([facility]) Negative COVID-19 Clin Com See Note Influenza Type A (ESE) Negative Influenza Type B (ESE) Negative Influenza A & B Note See Note 04/01/25 05:53 WBC 4.6 L RBC 3.28 L Hgb 10.2 L Hct 31.6 L MCV 96.3 MCH 31.1 MCHC 32.3 RDW 13.1 Plt Count 198 MPV 9.7 Immature Gran % (Auto) Neut % (Auto) Lymph % (Auto) Mcdowell % (Auto) Eos % (Auto) Baso % (Auto) Lymph # (Auto) Mcdowell # (Auto) Eos # (Auto) Baso # (Auto) Abs Immat Gran (auto) Absolute Neuts (auto) Absolute Nucleated RBC 0.000 Nucleated RBC % (auto) 0.0 PT INR APTT Sodium 147 H Potassium 3.6 Chloride 108 Carbon Dioxide 30 H Anion Gap 13 BUN 26 H Creatinine 1.14 Estim Creat Clear Calc 41.6 Estimated GFR 45 Random Glucose 109 Calcium 8.4 D Magnesium Total Bilirubin AST ALT Alkaline Phosphatase Troponin I High Sens NT-Pro-B Natriuret Pep 9244.3 H Total Protein Albumin TSH COVID-19 ([facility]) COVID-19 Clin Com Influenza Type A (ESE) Influenza Type B (ESE) Influenza A & B Note Airway Mallampati Class: II TM Dist: >3cm Neck ROM: Full Heart: rrr Lungs: cta Assessment and Plan Assessment Anesthesia Assessment: Anesthesia Plan Discussed and Chart Reviewed Final Anesthetic Review Family History of Problems with Anesthesia: No History of Problems with Anesthesia: No NPO: Yes ASA Class: III Final Preanesthetic Review: No Changes in Pt Med Stat, Meds/Allgs Chart Reviewed, Consent Obtained/Reviewed and Anes Risks/Benef Reviewed Patient Risk: Intermediate Procedure Risk: Low Anesthetic Plan Anesthetic Plan: MAC: Disposition: Standard PACU
[2025-04-02] MEDS: Sacubitril/Valsartan 97/103 1 TAB TABLET PO ×2 (09:01→20:32)
--- NOTE | 2025-04-02 10:30 | HO.PM.IMPN ---
Subjective Subjective Date of Service: 04/02/25 Interval History: occasional palpiations Physical Exam Vital Signs: Vital Signs: Last Vital Signs Temp 98.7 F 04/02/25 07:19 Pulse 98 04/02/25 07:19 Resp 18 04/02/25 07:19 BP 145/73 H 04/02/25 07:19 Pulse Ox 98 04/02/25 07:19 O2 Del Method Room Air 04/02/25 07:19 BMI result Body Mass Index 30.0 GENERAL APPEARANCE: in no acute distress, pleasant. NECK: no carotid bruit, no jugular venous distention. SKIN: no suspicious lesions, warm and dry. HEART: no murmurs, irregular rate and rhythm. LUNGS: clear to auscultation bilaterally. ABDOMEN: soft, nontender. EXTREMITIES: no edema. PERIPHERAL PULSES: equal. NEUROLOGIC: No gross deficits, AAO X 3 Objective Data Active Medications Acetaminophen (Acetaminophen 325 Mg Tablet) 650 mg PO Q6H PRN PRN Reason: Pain, Mild 1-3,fever,headache Amiodarone HCl (Amiodarone Hcl 200 Mg Tablet) 200 mg PO DAILY [facility] Last Admin: 04/02/25 09:01 Dose: 200 mg Documented By: RATNA Apixaban (Apixaban 5 Mg Tablet) 5 mg PO BID [facility] Last Admin: 04/02/25 09:01 Dose: 5 mg Documented By: RATNA Calcium Carbonate (Calcium Carbonate 750 Mg Tab.Chew) 750 mg PO Q4H PRN PRN Reason: Heartburn Furosemide (Furosemide 40 Mg Tablet) 40 mg PO BID [facility]; Protocol Last Admin: 04/02/25 09:02 Dose: Not Given Documented By: RATNA Non-Admin Reason: Patient Refused Magnesium Hydroxide (Milk Of Magnesia 30 Ml Oral.Susp) 30 ml PO DAILY PRN PRN Reason: Constipation Melatonin (Melatonin 3 Mg Tablet) 6 mg PO BEDTIME PRN PRN Reason: Insomnia Last Admin: 03/31/25 21:18 Dose: 6 mg Documented By: HAN Metoprolol Tartrate (Metoprolol Tartrate 25 Mg Tablet) 25 mg PO BID [facility]; Protocol Last Admin: 04/02/25 09:01 Dose: 25 mg Documented By: RATNA Multivitamins/Vitamin C (Multivitamin Tablet) 2 tab PO DAILY [facility] Last Admin: 04/02/25 09:01 Dose: 2 tab Documented By: RATNA Naloxone HCl (Naloxone Hcl 0.4 Mg/Ml Vial) 0.04 mg IVPUSH Q5M PRN PRN Reason: Excessive sedation or RR < 8 Ondansetron HCl (Ondansetron Hcl 4 Mg/2 Ml Vial) 4 mg IVPUSH Q8H PRN PRN Reason: Nausea and Vomiting Pravastatin Sodium (Pravastatin Sodium 40 Mg Tablet) 40 mg PO BEDTIME [facility] Last Admin: 04/01/25 20:49 Dose: 40 mg Documented By: KADE Ropinirole HCl (Ropinirole Hcl 0.5 Mg Tablet) 0.5 mg PO BEDTIME [facility] Last Admin: 04/01/25 20:49 Dose: 0.5 mg Documented By: KADE Sacubitril/Valsartan (Sacubitril/Valsartan 97/103 1 Tab Tablet) 1 tab PO BID [facility]; Protocol Last Admin: 04/02/25 09:01 Dose: 1 tab Documented By: RATNA Sodium Chloride (0.9 % Sodium Chloride Flush 3 Ml Syringe) 3 ml IVFLUSH QSHIFT [facility] Last Admin: 04/02/25 07:23 Dose: Not Given Documented By: RATNA Non-Admin Reason: Previously Administered Labs 04/01/25 05:53 04/01/25 05:53 Assessment and Plan (1) Cardiomyopathy: Status: Acute Plan 84F PMH pafib, hfref, CKD III presented with palpitations pafib symptomatic conitnue amio and apixaban plan for cardioversion today hfref continue lasix, entresto, metoprolol, ckd III stable dvt prophylaxis - eliquis full code reason for continued hospitalization: cardioversion Quality Stroke Does the patient have a stroke diagnosis?: No VTE Prior VTE?: No VTE Risk Level:: Medical - moderate - high VTE Device Contraindication: Treatment Not Indicated VTE Drug Contraindication: N/A - Med Ordered
--- NOTE | 2025-04-02 11:35 | PM.PNCARD ---
Subjective Subjective Date of Service: 04/02/25 Interval history: Seen and examined at bedside. Echocardiography has shown moderate LV dysfunction. Our plan is to do cardioversion today. She has been taking Eliquis uninterrupted for more than a month. Physical Exam Vital Signs: Last Vital Signs Temp 97.5 F 04/02/25 11:12 Pulse 112 H 04/02/25 11:12 Resp 16 04/02/25 11:12 BP 148/79 H 04/02/25 11:12 Pulse Ox 99 04/02/25 11:12 O2 Del Method Room Air 04/02/25 11:12 BMI result Body Mass Index 30.0 GENERAL APPEARANCE: in no acute distress, pleasant. NECK: no carotid bruit, no jugular venous distention. SKIN: no suspicious lesions, warm and dry. HEART: no murmurs, irregular rate and rhythm. LUNGS: clear to auscultation bilaterally. ABDOMEN: soft, nontender. EXTREMITIES: no edema. PERIPHERAL PULSES: equal. NEUROLOGIC: No gross deficits, AAO X 3 Objective Labs and Meds 04/01/25 05:53 04/01/25 05:53 Progress Note: A&P Assessment and plan (1) Cardiomyopathy: Status: Acute (2) Afib: Status: Acute Plan Pleasant 84 year female with persistent atrial fibrillation and cardiomyopathy with EF 30%. Presenting with symptomatic atrial fibrillation. She has been on chronic amiodarone 200 mg daily and Eliquis 5 mg twice a day. She has done well with diuresis and overall clinically is improving. Continue oral diuretics and add spironolactone 25 mg daily. Continue Entresto and Eliquis. We will do cardioversion today. Keep NPO for now. I discussed with her that she is getting recurrent episodes of atrial fibrillation despite being on anticoagulation and we will need a definitive treatment like ablation which we will arrange as outpatient. Thank you for allowing me to participate in the care of your patient. Please feel free to contact me if you have any questions. Time Spent With Patient Time: Total time managing care of this patient today ____ minutes. Progress Note: Quality Stroke Does the patient have a stroke diagnosis?: No Procedures Date of Service Date of Service: 04/02/25
--- NOTE | 2025-04-02 12:07 | MHC.SHP ---
Pre-Procedural Eval Section A - 24 Hr Update-Section A only Date of Service: 04/02/25 The patient is an INPATIENT: Yes Section B - Complete if H&P > 30 days Chief Complaint: symptomatic afib rvr Details of Present Illness: For cardioversion Allergies: Allergies Allergy/AdvReac Type Severity Reaction Status Date / Time No Known Allergies Allergy Verified 03/31/25 12:13 Plan I have reviewed the history and physical and performed a pertinent physical examination on my patient. No changes have occurred unless specified. Time Spent With Patient Time: Total time managing care of this patient today ____ minutes.
[2025-04-02] MEDS: 0.9 % Sodium Chloride Flush 3 ML SYRINGE IVFLUSH (20:34)
[2025-04-03] VITALS: BP 102/52; PULSE 61; RESP 16; TEMP 36.8; O2SAT 97
[2025-04-03 03:28] VITALS: BP 143/68; PULSE 63; RESP 16; TEMP 36.8; O2SAT 98
[2025-04-03 07:07] VITALS: BP 118/57; PULSE 65; RESP 18; TEMP 36.5; O2SAT 100
--- NOTE | 2025-04-03 08:39 | MHC.CM.PN ---
[facility] PT WILL BE MEDICALLY CLEARED FOR DC S/P CARDIOVERSION, PT DECLINES NEED FOR HOME HEALTH SERVICES AND WILL ARRANGE FOR FAMILY TO TRANSPORT.
[2025-04-03] MEDS: Sacubitril/Valsartan 97/103 1 TAB TABLET PO (08:51)
[2025-04-03] MEDS: 0.9 % Sodium Chloride Flush 3 ML SYRINGE IVFLUSH (08:53)
--- NOTE | 2025-04-03 09:13 | HO.POSTANES ---
Post Anesthesia Evaluation Post Anesthesia Evaluation Date of Service: 04/03/25 Vital Signs: Vital Signs Temp Pulse Resp BP Pulse Ox O2 Del Method 04/03/25 07:07 97.7 F 65 18 118/57 L 100 Room Air 04/03/25 03:28 98.2 F 63 16 143/68 H 98 Room Air 04/03/25 00:00 98.2 F 61 16 102/52 L 97 Room Air Anesthesia: General Mental Status: Awake Pain Control: Satisfactory Nausea/Vomiting: None Anesthesia-Related Issues: No Anes. Related Issues
--- NOTE | 2025-04-03 10:40 | PM.PNCARD ---
Subjective Subjective Date of Service: 04/03/25 Interval history: Seen examined at bedside. Doing well. Status post cardioversion. Physical Exam Vital Signs: Last Vital Signs Temp 97.7 F 04/03/25 07:07 Pulse 65 04/03/25 07:07 Resp 18 04/03/25 07:07 BP 118/57 L 04/03/25 07:07 Pulse Ox 100 04/03/25 07:07 O2 Del Method Room Air 04/03/25 07:07 BMI result Body Mass Index 30.0 GENERAL APPEARANCE: in no acute distress, pleasant. NECK: no carotid bruit, no jugular venous distention. SKIN: no suspicious lesions, warm and dry. HEART: no murmurs, regular rate and rhythm. LUNGS: clear to auscultation bilaterally. ABDOMEN: soft, nontender. EXTREMITIES: no edema. PERIPHERAL PULSES: equal. NEUROLOGIC: No gross deficits, AAO X 3 Objective Labs and Meds 04/01/25 05:53 04/01/25 05:53 Progress Note: A&P Assessment and plan (1) Cardiomyopathy: Status: Acute (2) Afib: Status: Acute Plan [age] female presenting with AFib with RVR and cardiomyopathy with EF 30 35%. She is status post cardioversion at this point. In sinus rhythm. Continue amiodarone 200 mg daily and apixaban 5 mg twice a day. She is on metoprolol, Entresto and spironolactone. She will follow up with Dr. Jones. I think she will benefit from ablation given the fact that she is getting recurrent episodes of atrial fibrillation while being on amiodarone. I will discuss this with Dr. Jones. Thank you for allowing me to participate in the care of your patient. Please feel free to contact me if you have any questions. Time Spent With Patient Time: Total time managing care of this patient today ____ minutes. Progress Note: Quality Stroke Does the patient have a stroke diagnosis?: No Procedures Date of Service Date of Service: 04/03/25
[2025-04-03 11:53] VITALS: BP 105/51; PULSE 82; RESP 18; TEMP 36.8; O2SAT 98
--- NOTE | 2025-04-03 12:35 | P.DS_ITS ---
DS: Providers Provider Date of Service: 04/03/25 Date of admission: 04/02/25 10:44 Date of discharge: 04/03/25 Primary care physician: Seth Khan MD Consults: 03/31/25 14:50 Consult to Cardiology Routine Consulting Provider: [facility] Reason for consultation: Symptomatic atrial fibrillation with rapid ventricular response Attending physician on discharge: Darell Ruffin Discharging clinician: Darell Ruffin DS: Diagnosis Discharge Diagnosis (1) Cardiomyopathy: Status: Acute (2) Afib: Status: Acute DS: Summary Hospital Course Hospital Course: HPI:84 year old women with hx of afib and CHF presented with 24 hours of palpitations. She has a hx of afib rvr and last cardioversion was in November 2024. She started having palpitations yesterday and did not go away. She did not have chest pain, shortness of breath, fever, chills, nausea, vomiting, diarrhea. She has been taking her medications daily and has not missed doses other than her lasix dose this morning. In the ED, her BNP was noted to be elevated at 8005.4 but did not appear to be in overt failure. Her heart rate ranged from 90-120's. Troponin mildly elevated but essentially flat. CXR negative for consolidation or effusion. Placed on observation. Hospital course:https:84F PMH pafib, hfref, CKD III presented with palpitations- patient was admitted for paroxysmal AFib symptomatic: Patient was admitted on tele, continued home medication amiodarone and metoprolol, in addition to that patient also required cardioversion-subsequently improved significantly, in NSR. Echo EF is 30 35%. Currently cardiology recommended to continue home metoprolol and amiodarone and uninterrupted Eliquis: Further management outpatient with patient 's Cardiology/cardio may arrange their own appointment. plan: Continue metoprolol, amiodarone, Eliquis and interrupted. Follow up with Cardiology outpatient. Above management discussed with the patient detail length she understand and in agreement with the above plan, time spent 45 minute. All questions answered. Time Attestation Total time managing care of this patient today: 45 mintues. Discharge Coordination Time (in mins): 45 min Quality: Safe Use of Opioids Does Pt have an Active Cancer Diagnosis on the Problem List?: No Quality: Stroke Does the patient have a stroke diagnosis?: No Physical Exam Exam: Exam: Appearance: Alert.? Oriented X3.? cvs: rrr, [id number] , no murmur res: clear to auscultation ,no rhonchii or wheezing abd: no rebound or guarding ,nt, bs present. ext pulses present , no cyanosis . neuro: axo3 , nonfocal. Vital Signs: Vital Signs: Last Vital Signs Temp 98.2 F 04/03/25 11:53 Pulse 82 04/03/25 11:53 Resp 18 04/03/25 11:53 BP 105/51 L 04/03/25 11:53 Pulse Ox 98 04/03/25 11:53 O2 Del Method Room Air 04/03/25 11:53 BMI result Body Mass Index 30.0 DS: Data Data Completed and Pending Completed studies during hospitalization [Text1]: Procedures [facility] of Cardiac Rhythm, Single (11/20/24) Imaging Chest x-ray: My impression: cxr: 1. No acute findings. echo: Normal left ventricular cavity size. The left ventricular systolic function is moderately decreased. The visually estimated ejection fraction is between 30-35%. - Normal right ventricular cavity size. There is low normal right ventricular systolic function. - The left atrium is severely dilated. - There is mild calcification of the aortic valve. - There is severe mitral annular calcification. Findings Left Ventricle Normal left ventricular cavity size. The left ventricular systolic function is moderately decreased. The visually estimated ejection fraction is between 30-35%. There is moderate global hypokinesis. Diastolic function is indeterminate on the basis of available data. Right Ventricle Normal right ventricular cavity size. There is low normal right ventricular systolic function. Atria The left atrium is severely dilated. The right atrium is moderately dilated. Aortic Valve There is a normal trileaflet aortic valve. There is mild calcification of the aortic valve. There is no aortic valve stenosis. There is no aortic valve regurgitation. Mitral Valve The mitral valve appears normal. There is severe mitral annular calcification. There is mild mitral valve regurgitation. There is no mitral valve stenosis. Pulmonic Valve The pulmonic valve is normal. There is trace pulmonic valve regurgitation. Tricuspid Valve Normal tricuspid valve structure. There is trace tricuspid valve regurgitation. Normal right atrial pressure. There is no evidence of pulmonary hypertension. Venous The inferior vena cava is normal in size and collapses greater than 50% with inspiration. Pericardium/Pleural There is no evidence of pericardial effusion. Prior Study Comparison Changes noted compared to prior study dated: 06/27/2023. EF 30-35%-reduced compared to echo from 06/27/23 Discharge Plan Discharge Anticipated Discharge Date/Time: 04/03/25 12:04 Patient Disposition: Home, Self-Care Discharge Diagnosis: afib Referrals: Seth Khan MD [Primary Care Provider, Internal Medicine] - 1 Week Discharge Medications: New spironolactone 25 mg Tablet 12.5 mg PO DAILY Qty: 90 0RF Protocol: Hold for SBP< HOLD for SBP < : 90 Continued sacubitril-valsartan [Entresto] 97-103 mg tablet 1 tab PO BID arqsgalh-drgeyar-brdf-lutein Tablet 1 tab PO DAILY PreserVision AREDS 2,148 mcg-113 mg-45 mg-17.4mg Tablet 2 tab PO DAILY amiodarone 200 mg tablet 200 mg PO DAILY furosemide 20 mg tablet 40 mg PO BID metoprolol tartrate 25 mg Tablet 25 mg PO BID Qty: 60 0RF Protocol: Hold for SBP/HR < HOLD for SBP < : 90 HOLD for HR < : 60 pravastatin 40 mg tablet 40 mg PO BEDTIME Eliquis 5 mg tablet 5 mg PO BID ropinirole 0.5 mg tablet 0.5 mg PO BEDTIME Discharge Orders: Discharge Order (Routine); Ordered 04/03/25 Ordered By: Darell Ruffin Diet: Advance to usual diet Activity on Discharge: As tolerated Stand Alone Forms: Patient Portal Discharge page Print Language: Italian Care Plan Goals: afib with rvr -s/p cardioverison- continue home meds metorpolol/amiodarone , uninterrupted eliquis.added spironolactone. Monitor BMP outpatient. follow up outpatient Health Concerns: as above. Plan of Treatment: as above. Assessment: as above.
--- NOTE | 2025-04-15 22:07 | HO.CARDIVERS ---
Cardioversion Procedure Note Cardioversion Date of Procedure: 04/02/25 Ordering Provider: Vin Sow Performing Provider: Vin Sow Indication for Procedure: Afib, cardiomyopathy History: 84 female with Afib and cardiomyopathy. Consent: Verbal and Written consent was obtained from the patient before starting. The patient was made aware of the risk of stroke, arrhythmia and failure. Procedure: After consent obtained, defib pads were attached and the patient was sedated by the anesthesia team. Once adequate sedation achieved, single synchronized shock of 200 J was given. She converted to sinus rhythm. Recommendations: c/w amiodarone and apixaban. Outpatient assessment for Afib ablation.
== END 2025-04-03 14:00 | disposition home or self-care (01) | DRG 309 ==
LOC: HO.ED 14:03 → HO.EDOVER 14:53 → HO.IMC 15:08
PROVIDERS: Internal Medicine Cardiovascular Disease; Physician Assistant; Physician Assistant Medical; Admitting Provider Nurse Practitioner Acute Care; Emergency Provider Emergency Medicine; PCP Internal Medicine; Visit Provider Internal Medicine
PROC: 5A2204Z Restoration of Cardiac Rhythm, Single (ICD-10-PCS; principal; 2025-04-02 11:00)
DX: I48.0 Paroxysmal atrial fibrillation (principal); I50.22 Chronic systolic (congestive) heart failure; N18.32 Chronic kidney disease, stage 3b; E78.5 Hyperlipidemia, unspecified; G25.81 Restless legs syndrome; I42.9 Cardiomyopathy, unspecified; D63.1 Anemia in chronic kidney disease; Z20.822 Contact with and (suspected) exposure to COVID-19; Z79.01 Long term (current) use of anticoagulants; Z79.899 Other long term (current) drug therapy
CPT/HCPCS: 36415; 71045; 80048; 80053; 83735; 83880; 84443; 84484; 85025; 85027; 85610; 85730; 87502; 87635; 92960; 93005; 93306; 99222; 99285; Q9957

== ENCOUNTER → 2025-03-31 13:29 | Outpatient (BNV) | payer MEDICARE, SELFPAY | PROVIDERS: Admitting Provider Nurse Practitioner Acute Care; Emergency Provider Emergency Medicine; PCP Internal Medicine; Visit Provider Radiology Diagnostic Radiology | DX: R00.2 Palpitations (principal) | CPT/HCPCS: 71045 ==

== ENCOUNTER 2025-03-31 14:49 | Outpatient (BNV) | payer MEDICARE, SELFPAY | END 2025-04-01 07:00 | PROVIDERS: Admitting Provider Nurse Practitioner Acute Care; Emergency Provider Emergency Medicine; PCP Internal Medicine; Visit Provider Internal Medicine Cardiovascular Disease | DX: I34.81 Nonrheumatic mitral (valve) annulus calcification (principal); I35.8 Other nonrheumatic aortic valve disorders; I51.7 Cardiomegaly | CPT/HCPCS: 93306 ==

== ENCOUNTER → 2025-03-31 14:49 | Outpatient (BNV) | payer MEDICARE, SELFPAY | PROVIDERS: Admitting Provider Nurse Practitioner Acute Care; Emergency Provider Emergency Medicine; PCP Internal Medicine; Visit Provider Nurse Practitioner Acute Care | DX: R79.89 Other specified abnormal findings of blood chemistry (principal) | CPT/HCPCS: 99223; 99232 ==

== ENCOUNTER → 2025-03-31 14:49 | Outpatient (BNV) | payer MEDICARE, SELFPAY | PROVIDERS: Admitting Provider Nurse Practitioner Acute Care; Emergency Provider Emergency Medicine; PCP Internal Medicine; Visit Provider Internal Medicine Cardiovascular Disease | DX: I48.91 Unspecified atrial fibrillation (principal) | CPT/HCPCS: 93010; 99223; 99233 ==

== ENCOUNTER 2025-04-02 10:44 | Outpatient (BNV) | payer MEDICARE, SELFPAY | END 2025-04-02 12:16 | PROVIDERS: Admitting Provider Nurse Practitioner Acute Care; Emergency Provider Emergency Medicine; PCP Internal Medicine; Visit Provider Internal Medicine Cardiovascular Disease | DX: I49.1 Atrial premature depolarization (principal); R00.1 Bradycardia, unspecified | CPT/HCPCS: 93010 ==